=== PATIENT | female | born 1950 | race Caucasian/White ===

== ENCOUNTER → 2023-05-20 08:26 | Outpatient (REF) | payer MEDICARE, OTHER, SELFPAY | LOC: RCS 08:26 | PROVIDERS: ATTENDING PHYSICIAN Nurse Practitioner; FAMILY PHYSICIAN Family Medicine | DX: I42.9 Cardiomyopathy, unspecified (principal) | CPT/HCPCS: 93306 ==

== ENCOUNTER → 2023-06-06 06:57 | Outpatient (REF) | payer MEDICARE, OTHER, SELFPAY ==
[2023-06-06] MEDS: FLUSH (NSS) 1 FLUSH IV (08:40)
[2023-06-06] MEDS: LEXISCAN 0.400000000000000022 MG IV (08:41)
== END ==
LOC: RCS 06:57
PROVIDERS: ATTENDING PHYSICIAN Internal Medicine Cardiovascular Disease; FAMILY PHYSICIAN Family Medicine
DX: I48.0 Paroxysmal atrial fibrillation (principal); I42.9 Cardiomyopathy, unspecified
CPT/HCPCS: 78452; 93017; A9500; J2785

== ENCOUNTER → 2023-07-15 10:47 | Outpatient (REF) | payer MEDICARE, OTHER, SELFPAY ==
[2023-07-15 11:25] LABS: % Basophils 0.9 % (0-2); % Immature Granulocytes 0.3 % (0-0.5); % Monocytes 9.2 % (1.7-9.3); % Neutrophils 60.6 % (42.2-75.2); Absolute Basophils 0.1 10^3/uL (0-0.2); Absolute Monocytes 0.6 10^3/uL (0.1-0.6); Absolute Neutrophils 4.2 10^3/uL (1.4-6.5); Hematocrit 35.6 % (37.0-47.0); Hemoglobin 11.5 g/dL (12.0-16.0); Mean Corp Hgb Conc. 32.3 g/dL (33.0-37.0); Mean Corpuscular Hgb 29.3 pg (27.0-31.0); Mean Corpuscular Volume 90.6 fL (81.0-99.0); Mean Platelet Volume 9.3 fL (7.4-10.4); Nucleated Red Blood Cells % 0 %; Platelet Count 266 10^3/uL (130-400); Red Blood Cell Count 3.93 10^6/uL (4.20-5.40)
[2023-07-15 11:38] LABS: INR 1.19; PT 14.9 Sec (11.4-14.6)
[2023-07-15 12:03] LABS: ALT (SGPT) 32 U/L (0-35); AST (SGOT) 26 U/L (14-36); Albumin 4.3 g/dl (3.5-5.0); Alkaline Phosphatase 57 U/L (38-126); Blood Urea Nitrogen 34 mg/dl (7-17); Calcium 10.4 mg/dl (8.4-10.2); Carbon Dioxide 24 mmol/L (22-30); Chloride 107 mmol/L (98-107); Glucose 95 mg/dl (70-99); Magnesium 1.8 mg/dl (1.6-2.3); Potassium 4.2 mmol/L (3.5-5.1); Sodium 139 mmol/L (135-145); Total Bilirubin 0.7 mg/dl (0.2-1.3); Total Protein 6.6 g/dl (6.3-8.2); eGFR > 60.00
== END ==
LOC: SDSPAT 10:47
PROVIDERS: ATTENDING PHYSICIAN Internal Medicine Cardiovascular Disease; FAMILY PHYSICIAN Family Medicine; OTHER PHYSICIAN Internal Medicine Cardiovascular Disease
DX: Z01.818 Encounter for other preprocedural examination (principal); I42.8 Other cardiomyopathies; I48.0 Paroxysmal atrial fibrillation
CPT/HCPCS: 36415; 80053; 83735; 85025; 85610; 93005

== ENCOUNTER 2023-07-23 08:32 | Day surgery (SDC) | payer MEDICARE, OTHER, SELFPAY ==
[2023-07-15 11:00] VITALS: BMI 27.3
[2023-07-23 08:55] VITALS: BP 118/78
[2023-07-23 09:20] LABS: Glucose - Point of Care 108 mg/dl (70-99)
[2023-07-23] MEDS: SOLU-CORTEF 200 MG IV (10:30)
[2023-07-23] MEDS: BENADRYL 50 MG IV (10:38)
[2023-07-23 11:44] VITALS: BP 124/63
--- NOTE | 2023-07-23 11:57 | ITS.CL.PN ---
Open Claims Representative - Procedure Note
Procedure
Procedure Note:
Venogram report
Date: July 23, 2023
Indication: Prior to 2016 pacemaker implant and need for upgrade with cardiac resynchronization therapy
Procedure report:
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
collaterals in the innominate SVC system. Programming of the device was left at DDDR 60-120 bpm and as she received sedation she will be kept overnight and discharged tomorrow. We will perform CT surgical consultation and I discussed the case
preliminarily with Dr. Donato who will evaluate the patient tomorrow morning for surgical LV lead implantation. The patient is agreeable to be Dr. Donato. I also communicated plan of care with her outpatient toe lining closer Dr. Mercy Ball.
[2023-07-23 11:59] VITALS: BP 122/72
--- NOTE | 2023-07-23 12:12 | W.PN.UPDATE ---
Update Note
Progress Note Update
Please note venogram report in the chart with long segment subclavian occlusion. Will consult CT surgery for evaluation for surgical LV lead implantation I discussed with Dr. Donato.
[2023-07-23 12:14] VITALS: BP 134/60
[2023-07-23 12:29] VITALS: BP 138/111
== END 2023-07-23 13:15 | disposition home or self-care (01) ==
LOC: CATH 08:32
PROVIDERS: ATTENDING PHYSICIAN Internal Medicine Cardiovascular Disease; CONSULT PHYSICIAN Thoracic Surgery (Cardiothoracic Vascular Surgery); FAMILY PHYSICIAN Family Medicine; OTHER PHYSICIAN Internal Medicine Cardiovascular Disease
DX: Z45.010 Encounter for checking and testing of cardiac pacemaker pulse generator [battery] (principal); I34.0 Nonrheumatic mitral (valve) insufficiency; I82.B29 Chronic embolism and thrombosis of unspecified subclavian vein; I50.20 Unspecified systolic (congestive) heart failure; I44.2 Atrioventricular block, complete; Z95.3 Presence of xenogenic heart valve; I48.0 Paroxysmal atrial fibrillation; I47.19 Other supraventricular tachycardia; E11.9 Type 2 diabetes mellitus without complications; Z79.84 Long term (current) use of oral hypoglycemic drugs; I95.9 Hypotension, unspecified; Z87.19 Personal history of other diseases of the digestive system; G47.00 Insomnia, unspecified; E03.9 Hypothyroidism, unspecified; D64.9 Anemia, unspecified; Z79.01 Long term (current) use of anticoagulants; Z91.041 Radiographic dye allergy status; Z88.8 Allergy status to other drugs, medicaments and biological substances; Z88.5 Allergy status to narcotic agent; Z88.2 Allergy status to sulfonamides; Z79.899 Other long term (current) drug therapy; I42.8 Other cardiomyopathies
CPT/HCPCS: 33229; 36005; 33207; 33225; 75827; 82962; C1769; C1892; Q9967

== ENCOUNTER 2023-08-06 07:17 | Day surgery (SDC) | payer MEDICARE, OTHER, SELFPAY | END 2023-08-06 10:27 | disposition home or self-care (01) | LOC: CATH 07:17 | PROVIDERS: ATTENDING PHYSICIAN Nuclear Medicine Nuclear Cardiology; FAMILY PHYSICIAN Family Medicine | DX: I08.1 Rheumatic disorders of both mitral and tricuspid valves (principal); Z95.3 Presence of xenogenic heart valve; I70.0 Atherosclerosis of aorta; I42.8 Other cardiomyopathies; I50.22 Chronic systolic (congestive) heart failure | CPT/HCPCS: 93312; 93320; 93325 ==

== ENCOUNTER → 2024-01-22 07:51 | Outpatient (REF) | payer MEDICARE, OTHER, SELFPAY | LOC: RCS 07:51 | PROVIDERS: ATTENDING PHYSICIAN Thoracic Surgery (Cardiothoracic Vascular Surgery); FAMILY PHYSICIAN Family Medicine; REFERRING PHYSICIAN Internal Medicine Cardiovascular Disease | DX: Z95.3 Presence of xenogenic heart valve (principal); I44.2 Atrioventricular block, complete; Z95.0 Presence of cardiac pacemaker | CPT/HCPCS: 93306 ==

== ENCOUNTER 2024-12-30 18:15 | Inpatient (IN) | payer MEDICARE, OTHER, SELFPAY ==
[2024-12-30] VITALS (28 sets, daily range): BP systolic 81–157; BP diastolic 45–81; BMI 26.6
--- NOTE | 2024-12-30 15:41 | ED.GENMED ---
History of Present Illness
<Concetta Wahl, [employer] - Last Filed: 12/30/24 16:49>
General
Chief Complaint: Abnormal Lab Value
Source: patient
Exam Limitations: none
Time Seen by Provider: 12/30/24 14:47
Nursing documentation reviewed up to this point in time: agreed with
History of Present Illness
History of Present Illness:
74-year-old female with history of cardiomyopathy, endocarditis, HTN, HLD, paced, mitral valve replacement on Eliquis presents for low hemoglobin. She states she had routine blood work done yesterday in preparation for her yearly visit and was
called today for low hemoglobin. She states she has been getting winded lately when she walks fast, denies chest pain, abdominal pain, N/V/D/C. Denies numbness or tingling or weakness in her extremities. She denies UTI symptoms. Denies change in
the color of her stool.
She also states she has a 'leaky mitral valve' and has an appointment next week for an echocardiogram with Dr. Ball.
Past History
<Concetta Wahl, [employer] - Last Filed: 12/30/24 16:49>
Past History
ED Past Medical History: HTN, Hypercholesterolemia and Valvular disease (Mitral regurgitation)
ED Past Surgical History: Appendectomy
Social History
Tobacco: Non-smoker
Alcohol: None
Drug: None
Review of Systems
<Concetta Wahl, [employer] - Last Filed: 12/30/24 16:49>
Review of Systems
Allergies reviewed?: Yes
All Other Systems: ROS reviewed and negative except as documented in HPI and ROS
Phy Exam
<Concetta Wahl, [employer] - Last Filed: 12/30/24 16:49>
Physical Exam
Physical Exam:
GENERAL: No acute distress. A&Ox3.
CONSTITUTIONAL: Afebrile.
EYES: clear, conjunctivae normal
ENMT: moist mucus membranes, Pharynx nl
RESPIRATORY: Regular respirations, nonlabored, lungs clear.
CARDIOVASCULAR: Regular rate and rhythm, no murmurs, no rubs.
GI: Soft, nontender, normal BS
Rectal: brown stool heme positive
MUSCULOSKELETAL: Moves with ease. Well perfused.
SKIN: Warm, dry, pink
PSYCH: Normal mood and affect. Well kept, interactive and appropriate
NEUROLOGIC: Awake, alert and oriented. No focal neurological deficits
Course
<Concetta Wahl, [employer] - Last Filed: 12/30/24 16:49>
Orders/Labs/Results
Orders:
Orders
12/30/24 15:14
IV Insert/Care/Rem.- Treatment PRN
Pantoprazole 80 mg/100 ml Nss [Protonix] 80 mg in 100 ml IV NOW
Pantoprazole [Protonix IV] 80 mg IV NOW STA
12/30/24 15:15
* Blood Bank Products Urgent
Blood Bank Products: *Packed RBC Leuko(PRBC's)
Quantity: 2
Transfuse Today: Yes
Reason: Bleeding
12/30/24 16:13
Type+Screen Urgent
Complete Blood Count/With Diff Urgent
Comprehensive Metabolic Panel Urgent
Urinalysis Reflex To Culture Urgent
Date Specimen was Collected: 12/30/24
Time Specimen was Collected: 15:44
Urine Microscopic Reflex Cult Urgent
Urine Culture Urgent
JORGE Source: U
Specimen Description:
Date Specimen was Collected: 12/30/24
Time Specimen was Collected: 15:44
12/30/24 16:42
Cephalexin Monohydrate [Keflex] 500 mg PO NOW STA
Abnormal Lab Results
12/30/24
16:13
RBC 3.37 L 10^6/uL
(4.20-5.40)
Hgb 5.7 L* g/dL
(12.0-16.0)
Hct 20.8 L* %
(37.0-47.0)
MCV 61.7 L fL
(81.0-99.0)
MCH 16.9 L pg
(27.0-31.0)
MCHC 27.4 L g/dL
(33.0-37.0)
RDW 18.6 H %
(11.5-14.5)
Plt Count 411 H 10^3/uL
(130-400)
Neutrophils % 75.6 H %
(42.2-75.2)
Lymphocytes % 15.9 L %
(20.5-51.1)
Potassium 5.2 H mmol/L
(3.5-5.1)
BUN 42 H mg/dl
(7-17)
Total Protein 6.2 L g/dl
(6.3-8.2)
Ur Occult Blood Reflex 4+ A
(Negative)
Urine RBC 50-60 A /HPF
(0-2)
Urine WBC (Reflex) 30-40 A /HPF
(0-5)
Urine Bacteria (Reflex) Many A
(Negative)
Urine Albumin (Reflex) 4+ A
(Neg - Trace)
12/30/24 16:13
12/30/24 16:13
Vital Signs
Initial and Last Documented VS:
Initial Vital Signs
Temp Pulse Resp BP Pulse Ox
97.7 F 85 18 157/62 98
12/30/24 14:30 12/30/24 14:30 12/30/24 14:30 12/30/24 14:30 12/30/24 14:30
Last Documented Vital Signs
Temp Pulse Resp BP Pulse Ox
97.7 F 85 18 157/62 98
12/30/24 14:30 12/30/24 14:30 12/30/24 14:30 12/30/24 14:30 12/30/24 15:43
Rotary Drum Dyer consulted with Physician
Rotary Drum Dyer consulted with physician?: Yes
Name of Physician Consulted: Reyes
<Perez Chambers, DO - Last Filed: 12/30/24 16:54>
Orders/Labs/Results
Orders:
Orders
12/30/24 15:14
IV Insert/Care/Rem.- Treatment PRN
Pantoprazole 80 mg/100 ml Nss [Protonix] 80 mg in 100 ml IV NOW
Pantoprazole [Protonix IV] 80 mg IV NOW STA
12/30/24 15:15
* Blood Bank Products Urgent
Blood Bank Products: *Packed RBC Leuko(PRBC's)
Quantity: 2
Transfuse Today: Yes
Reason: Bleeding
12/30/24 16:13
Type+Screen Urgent
Complete Blood Count/With Diff Urgent
Comprehensive Metabolic Panel Urgent
Urinalysis Reflex To Culture Urgent
Date Specimen was Collected: 12/30/24
Time Specimen was Collected: 15:44
Urine Microscopic Reflex Cult Urgent
Urine Culture Urgent
JORGE Source: U
Specimen Description:
Date Specimen was Collected: 12/30/24
Time Specimen was Collected: 15:44
12/30/24 16:42
Cephalexin Monohydrate [Keflex] 500 mg PO NOW STA
Abnormal Lab Results
12/30/24
16:13
RBC 3.37 L 10^6/uL
(4.20-5.40)
Hgb 5.7 L* g/dL
(12.0-16.0)
Hct 20.8 L* %
(37.0-47.0)
MCV 61.7 L fL
(81.0-99.0)
MCH 16.9 L pg
(27.0-31.0)
MCHC 27.4 L g/dL
(33.0-37.0)
RDW 18.6 H %
(11.5-14.5)
Plt Count 411 H 10^3/uL
(130-400)
Neutrophils % 75.6 H %
(42.2-75.2)
Lymphocytes % 15.9 L %
(20.5-51.1)
Potassium 5.2 H mmol/L
(3.5-5.1)
BUN 42 H mg/dl
(7-17)
Total Protein 6.2 L g/dl
(6.3-8.2)
Ur Occult Blood Reflex 4+ A
(Negative)
Urine RBC 50-60 A /HPF
(0-2)
Urine WBC (Reflex) 30-40 A /HPF
(0-5)
Urine Bacteria (Reflex) Many A
(Negative)
Urine Albumin (Reflex) 4+ A
(Neg - Trace)
12/30/24 16:13
12/30/24 16:13
Vital Signs
Initial and Last Documented VS:
Initial Vital Signs
Temp Pulse Resp BP Pulse Ox
97.7 F 85 18 157/62 98
12/30/24 14:30 12/30/24 14:30 12/30/24 14:30 12/30/24 14:30 12/30/24 14:30
Last Documented Vital Signs
Temp Pulse Resp BP Pulse Ox
97.7 F 85 18 157/62 98
12/30/24 14:30 12/30/24 14:30 12/30/24 14:30 12/30/24 14:30 12/30/24 15:43
<Concetta V. Day, [employer] - Last Filed: 12/30/24 16:49>
MDM/Problems Addressed
Differential Diagnosis Includes:
GI bleed, PUD
MDM/Problems Addressed:
74-year-old female with history of cardiomyopathy, endocarditis, HTN, HLD, paced, mitral valve replacement on Eliquis presents for low hemoglobin. She states she had routine blood work done yesterday in preparation for her yearly visit and was
called today for low hemoglobin. She states she has been getting winded lately when she walks fast, denies chest pain, abdominal pain, N/V/D/C. She has had some burning with urination. Denies numbness or tingling or weakness in her extremities.
Denies change in the color of her stool.
She also states she has a 'leaky mitral valve' and has an appointment next week for an echocardiogram with Dr. Ball.
Afebrile, NAD
Abdomen benign, rectal: Brown stool heme positive
4:40 PM:
UA: 4+ blood, 50-60 RBCs, 30-40 WBCs, many bacteria, 4+ albumin.
Started on Keflex
CBC: Hgb 5.7 will transfuse with 2 units of PRBCs.
CMP BUN 42 otherwise
Plan: Admit, GI bleed, anemia, UTI
Blood Consent signed and scanned into chart: PRBC's [address] Chambers evaluated patient and agrees with plan
Hospitalist and GI notified of admission
Chronic conditions affecting care: HTN and Arrhythmia (On Eliquis)
<Concetta Wahl [employer] - Last Filed: 12/30/24 16:49>
*Pulse Oximetry
SaO2: 98
Oxygen Mode of Delivery: Room air
Patient hypoxic: no
*Critical Care Note
Total Time (30-74mins, 75-104mins- exclusive of procedures): Not Applicable
ED Attending Note
<Concetta Wahl [employer] - Last Filed: 12/30/24 16:49>
-
Portions of this chart may have been created with voice recognition software.� Occasional wrong word or��sound alike� substitutions may have occurred due to the inherent limitations of voice recognition software.
<Perez Chambers, DO - Last Filed: 12/30/24 16:54>
ED Attending Note
Patient seen and examined by attending physician: Yes
ED Attending Note:
I reviewed and agree with history and treatment plan by LILLY Quach. My exam revealed 74-year-old female with mild hypotension, appears pale. Midline sternotomy scar. Abdomen soft nontender. 1 unit packed red blood cells ordered. Rocephin
given initially for UTI. Admit to hospitalist IMU level.
Discharge Plan
Departure
Patient Disposition: Admit
Date of Disposition: 12/30/24
Time of Disposition: 16:53
Admit to: IMU
Presentation/result/management discussed w/ accepting MD/DO: Hospitalist
Patient with high blood pressure during this ER visit?: Yes
Condition: Fair
Discharge Problem:
GI (gastrointestinal bleed), Anemia, Acute UTI
Prescriptions:
No Action
zolpidem 10 MG tablet
10 mg PO HSPRN PRN (Reason: sleep)
carvedilol 3.125 MG tablet
3.125 mg PO BID Qty: 60 3RF
multivitamin with folic acid [Tab-A-Rod] 1 TABLET tablet
1 tab PO DAILY Qty: 0 0RF
furosemide 20 MG tablet
20 mg PO SUWE
lisinopril 2.5 MG tablet
2.5 mg PO DAILY
atorvastatin 40 mg Tablet
40 mg PO DAILY
alprazolam 0.5 mg Tablet
0.5 mg PO QID
Eliquis 5 mg Tablet
5 mg PO BID
Cbd Gummies
1 tab PO HS
thiamine HCl (vitamin B1) [Vitamin B-1] 100 mg Tablet
100 mg PO DAILY
Saccharomyces boulardii [Probiotic (S.boulardii)] 250 mg Capsule
250 mg PO DAILY
levothyroxine 25 mcg Tablet
25 mcg PO DAILY
vitamin B complex Capsule
1 cap PO DAILY
ezetimibe 10 mg Tablet
10 mg PO DAILY
ivabradine 5 mg Tablet
5 mg PO BID
metformin 500 mg Tablet Extended Release 24 Hr
1,000 mg PO BID
Referrals:
Mina Quintana MD [Family Provider, Family Practice]
Interventions
Interventions:
*Risk Screen - Suicide Last Done: 12/30/24 14:30
*General Assessment Last Done: 12/30/24 14:30
Discharge Date and Time
Print Language: FILIPINO
[2024-12-30 16:26] LABS: Urine Character Cloudy (Clear)
[2024-12-30] MEDS: PROTONIX 100 IV (16:30)
[2024-12-30] MEDS: PROTONIX IV 80 MG IV (16:30)
[2024-12-30 16:34] LABS: Urine Squamous Cell 0-2 /LPF (Few)
[2024-12-30 16:36] LABS: Urine Red Blood Cell 50-60 /HPF (0-2); Urine White Cell 30-40 /HPF (0-5)
[2024-12-30 16:40] LABS: ALT (SGPT) 18 U/L (0-35); AST (SGOT) 20 U/L (14-36); Albumin 4.1 g/dl (3.5-5.0); Alkaline Phosphatase 58 U/L (38-126); Blood Urea Nitrogen 42 mg/dl (7-17); Calcium 9.6 mg/dl (8.4-10.2); Carbon Dioxide 24 mmol/L (22-30); Chloride 104 mmol/L (98-107); Glucose 90 mg/dl (70-99); Hematocrit 20.8 % (37.0-47.0); Hemoglobin 5.7 g/dL (12.0-16.0); Mean Corp Hgb Conc. 27.4 g/dL (33.0-37.0); Mean Corpuscular Volume 61.7 fL (81.0-99.0); Nucleated Red Blood Cells % 0 %; Platelet Count 411 10^3/uL (130-400); Potassium 5.2 mmol/L (3.5-5.1); Red Cell Dist. Width 18.6 % (11.5-14.5); Sodium 135 mmol/L (135-145); Total Protein 6.2 g/dl (6.3-8.2); eGFR 58.39
--- NOTE | 2024-12-30 16:45 | EDRN ---
Received patient on stretcher. Patient stated that she has been feeling generally fatigued and develops GONSALVES. Patient stated that she saw her doctor and had blood work done. Received a call today that her HGB was low and needed to come to the ED.
Patient denies chest pain,dizziness and dark colored stools.
--- NOTE | 2024-12-30 16:54 | HPS.HSE ---
Family Physician
-
Family Physician: Mina Quintana
Chief Complaint
-
Abnormal lab work low hemoglobin
History of Present Illness
74-year-old female who states she had routine blood work yesterday in preparation for her yearly visit she was called today due to low hemoglobin. She does report feeling winded with exertion and activity over the past 2 to 3 months she also
reports a' leaky mitral valve', for which she has an appointment next week with cardiology for echocardiogram by Dr. Ball. She denies lightheadedness, headache, fever, chills, chest pain, palpitations, abdominal pain, nausea, vomiting,
diarrhea, urinary symptoms, black stool. She states on and off after walks she wipes and has some bright red which she believes hemorrhoidal bleeding. She reported last week she had 1 day of hematuria that went away. She denies dysuria frequency,
flank pain
She has a past medical history of nonischemic cardiomyopathy, heart failure reduced EF 35 to 40% May 20, 2023 endocarditis, echo August 2022 EF 40-45% moderate bioprosthetic mitral regurg, HTN/hypotension, HLD, mitral valve replacement on
Eliquis, pacemaker secondary to complete heart block Medtronic dual-chamber 2015, paroxysmal A-fib, atrial tachycardia send post PVI December 2022, small bowel obstruction, insomnia, hypothyroidism
Medical History
Past Medical History
Past Medical History: Reports Other
Additional Past Medical History:
nonischemic cardiomyopathy, heart failure reduced EF 35 to 40% May 20, 2023
endocarditis
echo August 2022 EF 40-45% moderate bioprosthetic mitral regurg
mitral valve replacement on Eliquis
Iron deficiency anemia
B12 deficiency anemia
HTN/hypotension
HLD
Pacemaker secondary to complete heart block Medtronic dual-chamber 2015
Paroxysmal A-fib
Atrial tachycardia send post PVI December 2022
small bowel obstruction
Insomnia
Hypothyroidism
Past Surgical History: Reports Other
Additional Past Surgical History:
Pacemaker secondary to complete heart block Medtronic dual-chamber 2015
Atrial tachycardia send post PVI December 2022
Mitral valve replacement 11/07/2015
Appendectomy
Social History
Tobacco: Former Smoker (In college)
Alcohol: Occasional (Last drink 6 months ago)
Personal: Single
Employment: Retired
Family History
Family History: Early CAD (Both parents in their 40s heart disease)
Allergies / Home Medications
Allergies reflects when Allergies were last updated in [employer].
Home Medications with original date entered in [employer]
Allergy/Medication List:
Allergies
Allergy/AdvReac Type Severity Reaction Status Date / Time
codeine Allergy Hives Verified 12/30/24 14:31
iodine Allergy CONGESTION Verified 12/30/24 14:31
shellfish derived Allergy CONGESTION Verified 12/30/24 14:31
Sulfa (Sulfonamide Allergy Unknown Verified 12/30/24 14:31
Antibiotics)
Home Medications
zolpidem 10 mg tablet 10 mg PO HSPRN PRN sleep 10/21/15
carvedilol 3.125 mg tablet 3.125 mg PO BID ##60 11/13/15
multivitamin with folic acid 400 mcg tablet (Tab-A-Rod) 1 tab PO DAILY ##0 11/13/15
furosemide 20 mg tablet 20 mg PO SUWE Fluid retention/Swelling 12/01/15
lisinopril 2.5 mg tablet 2.5 mg PO DAILY Blood pressure 06/05/20
Cbd Gummies 1 tab PO HS Sleep 12/26/22
alprazolam 0.5 mg tablet 0.5 mg PO QID 12/26/22
apixaban 5 mg tablet (Eliquis) 5 mg PO BID 12/26/22
atorvastatin 40 mg tablet 40 mg PO DAILY 12/26/22
Saccharomyces boulardii 250 mg capsule (Probiotic (S.boulardii)) 250 mg PO DAILY 01/15/23
thiamine HCl (vitamin B1) 100 mg tablet (Vitamin B-1) 100 mg PO DAILY 01/15/23
ezetimibe 10 mg tablet 10 mg PO DAILY 07/05/23
ivabradine 5 mg tablet 5 mg PO BID 07/05/23
levothyroxine 25 mcg tablet 25 mcg PO DAILY 07/05/23
vitamin B complex 1 cap PO DAILY 07/05/23
metformin 500 mg tablet,extended release 24 hr 1,000 mg PO BID 12/30/24
Review of Systems
-
History Source: Patient and Family (Friend at bedside)
A 12 point ROS was completed and negative except as noted: Yes
Constitutional: Reports Fatigue (With activity); Denies Fever or Chills
EENT: Denies Sore Throat or Runny Nose
Respiratory: Reports Other (Dyspnea on exertion); Denies Cough or Trouble Breathing
Cardiac: Denies Chest Pain, Diaphoresis, Palpitations or Syncope
Abdomen/GI: Reports Bloody Stools (After walking wipes external hemorrhoids slight bright red); Denies Abdominal Pain, Nausea, Vomiting, Diarrhea, Constipated or Black Stools
: Reports Other (Hematuria 1 day last week); Denies Dysuria, Frequency, Flank Pain or Incontinence
Musculoskeletal: Denies Joint Pain or Edema
Skin: Denies Itching or Rash
Neurological: Denies Dizzy, Headache or Weakness
Endocrine: Reports No Symptoms
Hematologic/Lymphatic: Reports No Symptoms
Psych: Reports Calm
Physical Exam
Vital Signs
Vital Signs
Temp Pulse Resp BP Pulse Ox
97.7 F 85 18 157/62 98
12/30/24 14:30 12/30/24 14:30 12/30/24 14:30 12/30/24 14:30 12/30/24 15:43
Physical Exam
General: Comfortable and Conversant; No Pain, Fever or Chills
HEENT: NormoCephalic, Anicteric, Moist mucous membranes, PERRLA, No Ptosis and Other (Pale conjunctiva)
Respiratory: Clear; No Wheezes, Rales or Rhonchi
Cardiac: S1/S2; No Murmur, Rub, Gallop or Peripheral Edema
Breast: Deferred by me
GI: Soft, Non Tender, Non Distended, Normal Bowel Sounds and No Hepatosplenomegaly
Rectal: Hem Positive (Brown in ER per ER provider)
Genito-urinary: Deferred by me
Musculoskeletal: No Clubbing, No Cyanosis and No Edema
Skin: Warm and Dry; No Rash
Neuro: AO x 3, No Motor Deficits, Nonfocal/grossly intact, Cranial Nerves Intact and No Sensory Deficits; No Slurred Speech, Facial Droop, Tremors or Sedated
Psych: Calm
Laboratory Results
-
12/30/24 16:13
12/30/24 16:13
Laboratory Results
Total Bilirubin 0.8 mg/dl (0.2-1.3) 12/30/24 16:13
AST 20 U/L (14-36) 12/30/24 16:13
ALT 18 U/L (0-35) 12/30/24 16:13
Alkaline Phosphatase 58 U/L (38-126) 12/30/24 16:13
Data Reviewed
-
Lab Data: Labs Reviewed by me
Impression/Plan
-
Impression/plan:
Admit to IMU
#Acute GI bleed versus severe iron deficiency anemia on Eliquis
#History of anemia iron deficiency, B12
Heme positive stool history of hemorrhoids
Hgb 5.7, MCV 61.7
- Check iron panel, B12, folate
- Type and screen
- Transfuse 2 units PRBC
- Consult GI
- N.p.o.
- Hold Eliquis, metformin
#Acute hypotension due to blood loss anemia
#HTN/hypotension
BP 83/55 > 98/48 MAP of 62 patient reports tends to run 100 systolic
Type and screen
- Transfuse 2 units PRBC
Follow H&H every 8 hours
- Hold carvedilol 3.125 mg p.o. twice daily, furosemide 20 mg Saturday, lisinopril 2.5 mg daily
#Acute pyuria
Patient asymptomatic
Given IV Rocephin in ER
-Will follow urine culture
#Anxiety
-Continue alprazolam 0.5 mg p.o. 4 times daily
#Hypothyroidism
Continue levothyroxine 25 mcg p.o. daily
#HLD
Hold Zetia 10 mg daily
#Bioprosthetic mitral valve replacement
#Medtronic dual-chamber pacemaker 2015 secondary to heart block
#Paroxysmal A-fib
#Paroxysmal atrial tachycardia status post PVI December 2022
#Nonischemic cardiomyopathy, heart failure reduced EF 35 to 40% May 20, 2023
#endocarditis hx
2D echo echo August 2022 EF 40-45% moderate bioprosthetic mitral regurg
- Continue Ivabradine 5 mg p.o. twice daily
Other PMH:
Small bowel obstruction
Insomnia hold Ambien 10 mg at bedtime due to hypotension
DVT prophylaxis
SCDs
Full code
[2024-12-30 17:04] LABS: Normal RBC Morphology No
[2024-12-30 17:05] LABS: Anisocytosis 1+; Macrocytosis 1+
[2024-12-30 17:06] LABS: Hypochromasia 2+; Ovalocytes 2+
[2024-12-30] MEDS: ROCEPHIN 1000 MG IV (17:26)
--- NOTE | 2024-12-30 17:32 | W.PN.UPDATE ---
Update Note
Progress Note Update
This note serves as an addendum to the H&P by remnants cutter Laura Rico
HPI
74F Non smoker sen at ER:
- abn low Hgb in routine blood work yesterday in preparation for her yearly visit
- feeling winded with exertion.'
- HX leaky bioprosthetic leaky MVR for which she has an appointment next week with [facility] for TTE with Dr. Ball.
ROS
denies lightheadedness, headache, fever, chills, chest pain, palpitations, abdominal pain, nausea, vomiting, diarrhea, urinary symptoms, black or bloody stools.
PMHX:
NICM, HX chr HFrEF, LVEF 40-45
moderate bioprosthetic mitral regurg
PPM Medtronic dual-chamber 2016,
Atrial tachycardia send post PVI
Prx AF
HTN, Hypercholesterolemia
HX SBO , Appendectomy
Relevant VS
Temp Pulse Resp BP Pulse Ox
97.7 F 77 16 83/55 98
12/30/24 14:30 12/30/24 16:48 12/30/24 16:48 12/30/24 16:48 12/30/24 15:43
PE
Gen: NAD
HEENT: pale conjunctiva
Neck: supple
Lungs: CTA
Cor:RRR
Abdomen:�soft benign
JOB SPOTTER: AAO3
Relevant Data�
07/15/23 12/30/24
11:12 16:13
Hgb 11.5 L 5.7 L*
MCV 90.6 61.7 L
Plt Count 266 411 H
Potassium 5.2 H
BUN 42 H
Creatinine 1.0
eGFR > 60.00 58.39
ASSESSMENT & PLAN
Acute HoB POS stool GIB on Eliquis - Hemorrhoids bleed ?
ACBL severe anemic Hgb
HX chr anemia
- Check iron panel, B12, folate
- T & S
- Transfuse 2 units PRBC
- FU H & H
- NPO
- IV PPI BID
- Hold Eliquis, metformin
- GI consult
Abn UA - asymptomatic Pyuria
- one dose of IV CFTZ at ER
- await UCx till further ABx
Hypotension due to blood loss anemia
Benign HTN/hypotension -BP 83/55
- Transfuse 2 units PRBC
- Hold carvedilol , furosemide and lisinopril
HX NICM
HX chr HFrEF o 40% May 20, 2023
HX endocarditis hx
- c/w Ivabradine 5 mg p.o. twice daily
Prx AF
S/P PVI December 2022
Xanax dependent anxiety
- on alprazolam 0.5 mg p.o. 4 times daily
Hypothyroidism
- on PTAS levothyroxine 25 mcg p.o. daily
HLD
- on Zetia
Bioprosthetic mitral valve replacement
Medtronic dual-chamber pacemaker 2015 secondary to heart block
Other PMH:
Small bowel obstruction
Insomnia hold Ambien 10 mg at bedtime due to hypotension
DVT Px: SCD
Full code
IMU
--- NOTE | 2024-12-30 18:23 | EDRN ---
Patient receiving 1st unit of PRBC. Explained to patient signs and symptoms of a transfusion reaction. Verbalized understanding.
[2024-12-30 18:32] LABS: Total Iron Binding Capacity 471 ug/dl (265-497)
--- NOTE | 2024-12-30 18:39 | EDRN ---
Patient tolerating PRBC. Asymptomatic of a transfusion reaction.
[2024-12-30 18:41] LABS: Iron < 20 ug/dl (37-170)
[2024-12-30 18:59] LABS: Ferritin 3.7 ng/ml (11.1-264.0)
--- NOTE | 2024-12-30 19:12 | EDRN ---
Report given to SONU Johnson in IMU.
[2024-12-30 19:30] LABS: Folate 16.2 ng/ml (2.76-20); Vitamin B12 299 pg/ml (239-931)
[2024-12-30] MEDS: XANAX 0.5 MG PO (21:51)
[2024-12-30] MEDS: XANAX PO (21:55)
--- NOTE | 2024-12-30 23:13 | PTCARENOTE ---
received patient from ed via stretcher. Patient AAOx3. Protonix gtt and first unit of PRBC infusing upon admission. CHG bath done. purewick in place. assessment and vital signs as charted. call ovalle in reach.
[2024-12-31] VITALS (15 sets, daily range): BP systolic 111–149; BP diastolic 53–130; BMI 26.6
[2024-12-31] MEDS: PROTONIX 100 IV ×3 (00:15→20:35)
[2024-12-31] MEDS: MELATONIN 5 MG PO (02:05)
[2024-12-31 04:39] LABS: ALT (SGPT) 18 U/L (0-35); AST (SGOT) 24 U/L (14-36); Albumin 3.6 g/dl (3.5-5.0); Alkaline Phosphatase 43 U/L (38-126); Blood Urea Nitrogen 35 mg/dl (7-17); Calcium 9.4 mg/dl (8.4-10.2); Carbon Dioxide 22 mmol/L (22-30); Chloride 109 mmol/L (98-107); Estimated Creatinine Clearance 44 ml/min; Glucose 83 mg/dl (70-99); Potassium 4.4 mmol/L (3.5-5.1); Sodium 137 mmol/L (135-145); Total Protein 5.9 g/dl (6.3-8.2); eGFR > 60.00
[2024-12-31 04:42] LABS: Hematocrit 27.0 % (37.0-47.0); Hemoglobin 8.2 g/dL (12.0-16.0); Mean Corp Hgb Conc. 30.4 g/dL (33.0-37.0); Mean Corpuscular Volume 68.0 fL (81.0-99.0); Nucleated Red Blood Cells % 0 %; Platelet Count 328 10^3/uL (130-400); Red Cell Dist. Width 25.2 % (11.5-14.5)
[2024-12-31] MEDS: SYNTHROID 25 MCG PO (05:28)
--- NOTE | 2024-12-31 07:27 | W.PN.HOSP.TC ---
Today's Communication/Plan
-
diet as per GI, NPO after midnight for EGD/Colonoscopy
monitor H&H
Cardio Clearance
home antihypertensives resumed with holding parameters
5mg Ambien HS, 5mg Ambiend HSPRN available if schedule is insufficient
Assessment / Plan
Assessment / Plan
Physical Exam
General: No acute distress, appears comfortable at this time
HEENT: NormoCephalic, Anicteric, Moist mucous membranes, PERRLA
Respiratory: Clear; No Wheezes, Rales or Rhonchi
Cardiac: S1/S2; No Murmur, Rub, Gallop or Peripheral Edema
GI: Soft, Non Tender, Non Distended, Normal Bowel Sounds present
Musculoskeletal: No Clubbing, No Cyanosis and No Edema
Skin: Warm and Dry; No Rash
Neuro: AO x 3 conversant coherent
Psych: Calm
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
#Acute GI bleed versus severe iron deficiency anemia on Eliquis
#History of anemia iron deficiency
#Low B12 level
Heme positive stool history of hemorrhoids
- Transfuse 2 units PRBC with appropriate response noted
- Consult GI appreciated clear liquid diet today NPO after midnight for EGD/colonoscopy
- Hold Eliquis, metformin
-Cardio eval appreciated cleared to proceed with EGD/Colonoscopy, no need for hep gtt or abx prophylaxis hx endocarditis
#Acute hypotension due to blood loss anemia
#HTN/hypotension
-BP since improved follow transfusions as above
- resume carvedilol 3.125 mg p.o. twice daily and lisinopril 2.5 mg daily w holding parameters
- Home Lasix remains on hold at this time given NPO as above
#Acute pyuria
Patient asymptomatic
Given IV Rocephin in ER
-follow urine culture, monitoring off abx at this time
#Anxiety
#Insmonia
-Continue alprazolam 0.5 mg p.o. 4 times daily
-home Ambien resumed at reduced dose 5 mg HS, 5mg HSPRN also available if scheduled dose insufficient
#Hypothyroidism
Continue levothyroxine 25 mcg p.o. daily
#HLD
Hold Zetia 10 mg daily
#Bioprosthetic mitral valve replacement
#Medtronic dual-chamber pacemaker 2016 secondary to heart block
#Paroxysmal A-fib
#Paroxysmal atrial tachycardia status post PVI December 2022
#Nonischemic cardiomyopathy, heart failure reduced EF 35 to 40% May 20, 2023
#endocarditis hx
2D echo echo August 2022 EF 40-45% moderate bioprosthetic mitral regurg
- Continue Ivabradine 5 mg p.o. twice daily (patient's own med)
Other PMH:
Small bowel obstruction
DVT prophylaxis
SCDs
Full code
Discussed with patient and patient's close friened Flor
I spent a total of 55 minutes with the patient or on the floor. More than 50% of this time involved counseling and coordination of care.
Anticipated Discharge: 24 - 48 hours
Subjective/Interval History
-
Date of Service: December 31, 2024
Seen and examined at bedside in no acute distress resting comfortably in bed. Overall reports feeling well. Denies pain. Endorses poor sleep overnight.
Objective Data
-
Labs:
Laboratory Results
12/31/24 12/31/24 12/31/24
04:11 10:00 16:00
WBC 8.2
Hgb 8.2 L D Pending Pending
Hct 27.0 L Pending Pending
Plt Count 328 D
Sodium 137
Potassium 4.4
Chloride 109 H
Carbon Dioxide 22
BUN 35 H
Creatinine 0.9
Glucose 83
Calcium 9.4
Total Bilirubin 1.7 H
AST 24
ALT 18
Alkaline Phosphatase 43
Vital Signs:
Vital Signs
Temp Pulse Resp BP Pulse Ox
98.6 F 72 20 128/62 98
12/31/24 02:39 12/31/24 05:30 12/31/24 05:30 12/31/24 04:00 12/31/24 05:30
I&O
12/30/24 12/31/24 01/01/25
06:59 06:59 06:59
Intake Total 500 / 500
Output Total 750 / 750
Balance -250 / -250
[2024-12-31] MEDS: XANAX 0.5 MG PO ×4 (09:01→21:35)
[2024-12-31] MEDS: VITAMIN B1 100 MG PO (09:01)
[2024-12-31] MEDS: THERAGRAN 1 TABLET PO (09:01)
[2024-12-31] MEDS: B COMPLEX w/VITAMIN C 1 CAPLET PO (09:01)
[2024-12-31] MEDS: VITAMIN B-12 1000 MCG PO (09:01)
[2024-12-31 09:48] LABS: Glucose - Point of Care 98 mg/dl (70-99)
--- NOTE | 2024-12-31 10:09 | CON.GI ---
Consultation
-
Date/Time Consultation Requested: 12/30/2024
Date/Time Consultation Performed: 12/31/2024
Requesting Provider: Concetta Wahl V
Performing Provider: Dr. Nguyen
Reason for Consultation: GI bleed on eliquis
Medical History
Chief Complaint / HPI
Chief Complaint: Anemia gastrointestinal bleed
History of Present Illness:
Ms Strange is a 74-year-old female with a past medical history of nonischemic cardiomyopathy, heart failure reduced EF 35 to 40% 05/2023, moderate bioprosthetic mitral regurg, HTN/hypotension, HLD, mitral valve replacement on Eliqu, pacemaker
secondary to complete heart block Medtronic dual-chamber 2015, paroxysmal A-fib, atrial tachycardia send post PVI December 2022, small bowel obstruction, insomnia, hypothyroidism who states she had routine blood work yesterday in preparation for her
yearly visit she was called today due to low hemoglobin. She does report feeling winded with exertion and activity over the past 2 to 3 months. Co-workers have noticed her increased fatigue and she reports feelings of dizziness within this 2-3
month timeframe. She does not report any medication changes she also reports a' leaky mitral valve', for which she has an appointment next week with cardiology for echocardiogram by Dr. Ball. She denies headache, fever, chills, chest pain,
palpitations, abdominal pain, nausea, vomiting, diarrhea, urinary symptoms, black stool. She states for the past several years on and off after walks she wipes and has some bright red which she believes hemorrhoidal bleeding although she has never
been formally evaluated for it. She reported last week she had 1 day of hematuria that went away. She denies dysuria frequency, flank pain. She does not use NSAIDs or aspirin and endorses light drinking with last drink 6 months ago and remote
smoking history. She reports never having an endoscopy or colonoscopy in the past.
Past Medical History
Past Medical History: Arrhythmias (paroxysomal a fib, atrial tahcycardia), HTN, Hypercholesterolemia, Hypothyroidism, Valvular Disease (mitral valve replacement, ) and Other (SBO)
Past Surgical History: Cardiac (mitral valve replacement, pace maker medtronic dual-chamber 2016, PVI 2012)
Social History
Tobacco: Former Smoker
Alcohol: Occasional
Drug: Marijuana
Employment: Employed
Family History
Family History: Reviewed & Not Pertinent (cardiac hx in family, no CA she is aware of)
Allergies / Home Medications
Allergy/AdvReac Type Severity Reaction Status Date / Time
codeine Allergy Hives Verified 12/30/24 14:31
iodine Allergy CONGESTION Verified 12/30/24 14:31
shellfish derived Allergy CONGESTION Verified 12/30/24 14:31
Sulfa (Sulfonamide Allergy Unknown Verified 12/30/24 14:31
Antibiotics)
�Medication �Instructions �Recorded
zolpidem 10 mg tablet 10 mg PO HSPRN PRN sleep 10/21/15
carvedilol 3.125 mg tablet 3.125 mg PO BID ##60 11/13/15
multivitamin with folic acid 400 1 tab PO DAILY ##0 11/13/15
mcg tablet (Tab-A-Rod)
furosemide 20 mg tablet 20 mg PO SUWE Fluid 12/01/15
retention/Swelling
lisinopril 2.5 mg tablet 2.5 mg PO DAILY Blood pressure 06/05/20
Cbd Gummies 1 tab PO HS Sleep 12/26/22
alprazolam 0.5 mg tablet 0.5 mg PO QID Mental Health/Anxiety 12/26/22
apixaban 5 mg tablet (Eliquis) 5 mg PO BID Blood Clot 12/26/22
Prevention/Tx
atorvastatin 40 mg tablet 40 mg PO DAILY High Cholesterol 12/26/22
Saccharomyces boulardii 250 mg 250 mg PO DAILY Supplement 01/15/23
capsule (Probiotic (S.boulardii))
thiamine HCl (vitamin B1) 100 mg 100 mg PO DAILY Supplement 01/15/23
tablet (Vitamin B-1)
ezetimibe 10 mg tablet 10 mg PO DAILY High Cholesterol 07/05/23
ivabradine 5 mg tablet 5 mg PO BID Heart Failure 07/05/23
levothyroxine 25 mcg tablet 25 mcg PO DAILY Thyroid 07/05/23
vitamin B complex 1 cap PO DAILY Supplement 07/05/23
metformin 500 mg tablet,extended 1,000 mg PO BID Diabetes 12/30/24
release 24 hr
Review of Systems
-
History Source: Patient
Constitutional: Reports Fatigue; Denies Fever
EENT: Reports No Symptoms; Denies Sore Throat or Runny Nose
Respiratory: Reports No Symptoms; Denies Cough or Trouble Breathing
Cardiac: Reports No Symptoms; Denies Chest Pain or Palpitations
Abdomen/GI: Reports Bloody Stools; Denies Abdominal Pain, Nausea, Vomiting or Diarrhea
: Denies Dysuria
Neurological: Reports Dizzy; Denies Weakness
Vital Signs
Temp Pulse Resp BP Pulse Ox
97.5 F 72 20 128/62 98
12/31/24 07:00 12/31/24 05:30 12/31/24 05:30 12/31/24 04:00 12/31/24 05:30
Physical Exam
Exam
General: Well Developed, Well Nourished and No Apparent Distress
HEENT: Normocephalic and Anicteric
Respiratory: Clear and Non Labored Respirations; Negative Wheezes
Cardiac: S1/S2 and Regular Rhythm
GI: Soft, Non Tender, Non Distended and Normal Bowel Sounds
Skin: Warm and Dry
Neuro: Awake, Alert and Oriented
Psych: Other (anxious)
Results
WBC 8.2 10^3/uL (4.8-10.8) 12/31/24 04:11
Hgb 8.2 g/dL (12.0-16.0) L D 12/31/24 04:11
Hct 27.0 % (37.0-47.0) L 12/31/24 04:11
MCV 68.0 fL (81.0-99.0) L 12/31/24 04:11
Plt Count 328 10^3/uL (130-400) D 12/31/24 04:11
Absolute Neuts (auto) 6.1 10^3/uL (1.4-6.5) 12/31/24 04:11
Sodium 137 mmol/L (135-145) 12/31/24 04:11
Potassium 4.4 mmol/L (3.5-5.1) 12/31/24 04:11
Chloride 109 mmol/L (98-107) H 12/31/24 04:11
Carbon Dioxide 22 mmol/L (22-30) 12/31/24 04:11
BUN 35 mg/dl (7-17) H 12/31/24 04:11
Creatinine 0.9 mg/dL (0.6-1.0) 12/31/24 04:11
Calcium 9.4 mg/dl (8.4-10.2) 12/31/24 04:11
Total Bilirubin 1.7 mg/dl (0.2-1.3) H 12/31/24 04:11
AST 24 U/L (14-36) 12/31/24 04:11
ALT 18 U/L (0-35) 12/31/24 04:11
Alkaline Phosphatase 43 U/L (38-126) 12/31/24 04:11
Diagnostic Image Results:
Prior GI Procedures:
EGD: None
Colonoscopy: None
Assessment / Plan
-
She has a past medical history of nonischemic cardiomyopathy, endocarditis, heart failure reduced EF 35 to 40% 05/2023, moderate bioprosthetic mitral regurg, HTN, HLD, mitral valve replacement on Eliquis, pacemaker secondary to complete heart block
Medtronic dual-chamber 2015, paroxysmal A-fib, atrial tachycardia send post PVI December 2022, small bowel obstruction, insomnia, hypothyroidism presenting after outpatient biopsy showing hemoglobin of 5. Patient was admitted for low hemoglobin and
GI bleed.
#Acute GI bleed versus severe iron deficiency anemia on Eliquis
#History of anemia iron deficiency
Heme positive stool
Initial Hgb 5.7 s/p 2 pRBC Hgb 8.6
Last Eliquis 12/29
Maroon stools this a.m. 12/31
Possibly actively bleeding, upper GI versus lower GI, DDx includes PUD angioectasias malignancy
- Hold Eliquis
- PPI
- CTA
- Clear liquid diet, no red liquids, bowel prep
- Plan for Endo/[facility] tomorrow
- Follow H&H closely
This is a preliminary note, refer to attending note for final recommendations.
-
-
Thank you for consultation and allowing me to participate in the patient's care. Please call the online program coordinator GI physician during the after hours with any questions or concerns.
[2024-12-31 10:26] LABS: Hematocrit 27.9 % (37.0-47.0); Hemoglobin 8.6 g/dL (12.0-16.0)
[2024-12-31] MEDS: NON-FORMULARY ITEM 5 MG PO ×2 (11:59→19:43)
--- NOTE | 2024-12-31 12:30 | CM ---
Addendum entered by Beronica Sutton 12/31/24 12:40:
IMM benefit explained; form signed @ 1235
Original Note:
Met with patient at bedside; initial assessment and Case Management Consult completed; Advance Directive information packet provided
Phamacy verified: [facility] @ [address] [place] [address]
Lives alone; apartment 12-13 steps to enter; railings present; bath has tub w/ shower
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
NO SNF or Home Health utilization history
Friend will provide transport home
Plan: Discharge to home anticipated but Case Management will monitor and support needs if identified
[2024-12-31] MEDS: FERRLECIT 110 MG IV (13:12)
[2024-12-31] MEDS: NULYTELY SOLUTION 4 LITERS PO (14:08)
--- NOTE | 2024-12-31 16:02 | CON.CAR ---
Addendum entered and electronically signed by Dany Beebe MD 12/31/24 17:18:
Patient seen and examined
Agree with TUAN Martinez's note and assessment
Agree with TUAN Martinez's plan
Patient well-known to me due to prior pulmonary vein isolation in 2022 see separate report and emergency dual-chamber pacemaker for complete heart block in 2016. She has a Tilden ejection fraction most recently 45% with moderate mitral valve
bioprosthetic mitral valve regurgitation. Now with GI bleeding with bright red blood per rectum down to a hemoglobin of 5.7. She is in sinus rhythm today. Plan is for endoscopy and colonoscopy tomorrow.
Exam:
HEENT normocephalic atraumatic
Nonfocal neurologically
JVP 6
Cor regular with a 1 out of 6 systolic ejection murmur at the axilla
Abdomen soft mildly distended nontender
Trace extremity edema
Left-sided pacemaker intact
Sinus rhythm on telemetry with ventricular demand pacing
Assessment:
Presentation with BRBPR
Severe anemia
Suspected GI bleed
History of endocarditis status post bioprosthetic MVR in 2015
Dual-chamber pacemaker for complete heart block at time of MVR
Moderate bioprosthetic MR by echo 12/2023
Nonischemic cardiomyopathy with EF as low as 35% but most recently 45% by echo 12/2023
A-fib/A. tach status post PVI in 2022
Chronic Eliquis anticoagulation
Hypertension
Hyperlipidemia
Hypothyroidism
Type 2 diabetes
Anxiety
ECHO 12/2023: EF 40 to 45%, mild concentric LVH, abnormal septal motion with pacemaker in place, #29 bovine magna bioprosthetic MVR with peak/mean gradients 9/4 mmHg, moderate MR, moderate TR, PAP 35 mmHg
Plan:
- Plan for EGD/colonoscopy in a.m.
- Cardiology consulted for clearance for procedure given cardiac history as above
- She does not appear to have evidence of acute heart failure
- Denies chest pain, shortness of breath
- Check EKG. continue to follow on telemetry, in paced rhythm
- Given that she is a bioprosthetic MVR, does not require bridging with IV heparin. Ultimately if there is a long-term need for oral anticoagulation could be considered for watchman implantation once her GI evaluation is completed. Would defer to
her primary sticker on Dr. Ball and this could be discussed as an outpatient. If the watchman was planned we likely would perform concomitant posterior wall isolation while in the left atrium.
- Reviewed most recent guidelines regarding antibiotic prophylaxis in setting of prior valve replacement. She does not require antibiotics pre-EGD/colonoscopy as felt to be low risk for development of endocarditis
- Okay to proceed with EGD/colonoscopy as planned
- Discussed with nursing
Original Note:
Consultation
Consultation Request
Date/Time Consultation Performed: 12/31/24
Requesting Provider: Dr. Nguyen
Performing Provider: Yumiko Martinez PA-C for Dr. JANINA Bolivar
Reason for Consultation: cardiac clearance for EGD/colonoscopy
Medical History
-
Chief Complaint: BRBPR
History of Present Illness:
Patient is a 74-year-old female with past medical history of endocarditis status post bioprosthetic mitral valve replacement in 2015, now with moderate bioprosthetic regurgitation, cardiomyopathy with EF as low as 35 but most recently 45%,
dual-chamber pacemaker for complete heart block at time of MVR, A-fib/A. tach status post PVI in 2022 on chronic Eliquis who presented to [facility] due to bright red blood per rectum. She reports she initially had this approximately 2 weeks ago,
however then went away the following day. She states it then started again causing her to come to the ER for further evaluation. Hemoglobin was 5.7 on arrival. She feels as though this was secondary to eating a lot of tomatoes over the last
several weeks. She states she has never had a colonoscopy. Nursing reports she has had maroon stools overnight. Plan is for EGD/colonoscopy in AM. GI has consulted cardiology for clearance for procedures. Patient is without chest pain,
shortness of breath, palpitations at present.
PMH:
History of endocarditis status post bioprosthetic MVR in 2015
Dual-chamber pacemaker for complete heart block at time of MVR
Moderate bioprosthetic MR by echo 12/2023
Nonischemic cardiomyopathy with EF as low as 35% but most recently 45% by echo 12/2023
A-fib/A. tach status post PVI in 2022
Chronic Eliquis anticoagulation
Hypertension
Hyperlipidemia
Hypothyroidism
Type 2 diabetes
Anxiety
Past Medical History
Past Medical History: Other (in HPI)
Social History
Tobacco: Former Smoker (remote)
Alcohol: Occasional
Personal: Single
Living: Alone
Employment: Employed
Family History
Family History: CAD
Allergies / Home Medications
Allergy/AdvReac Type Severity Reaction Status Date / Time
codeine Allergy Hives Verified 12/30/24 14:31
iodine Allergy CONGESTION Verified 12/30/24 14:31
shellfish derived Allergy CONGESTION Verified 12/30/24 14:31
Sulfa (Sulfonamide Allergy Unknown Verified 12/30/24 14:31
Antibiotics)
�Medication �Instructions �Recorded �Confirmed �Type
zolpidem 10 mg tablet 10 mg PO HSPRN PRN sleep 10/21/15 12/30/24 History
carvedilol 3.125 mg tablet 3.125 mg PO BID ##60 11/13/15 12/30/24 Rx
multivitamin with folic acid 400 1 tab PO DAILY ##0 11/13/15 12/30/24 Rx
mcg tablet (Tab-A-Rod)
furosemide 20 mg tablet 20 mg PO SUWE Fluid 12/01/15 12/30/24 History
retention/Swelling
lisinopril 2.5 mg tablet 2.5 mg PO DAILY Blood pressure 06/05/20 12/30/24 History
Cbd Gummies 1 tab PO HS Sleep 12/26/22 12/30/24 History
alprazolam 0.5 mg tablet 0.5 mg PO QID Mental Health/Anxiety 12/26/22 12/30/24 History
apixaban 5 mg tablet (Eliquis) 5 mg PO BID Blood Clot 12/26/22 12/30/24 History
Prevention/Tx
atorvastatin 40 mg tablet 40 mg PO DAILY High Cholesterol 12/26/22 12/30/24 History
Saccharomyces boulardii 250 mg 250 mg PO DAILY Supplement 01/15/23 12/30/24 History
capsule (Probiotic (S.boulardii))
thiamine HCl (vitamin B1) 100 mg 100 mg PO DAILY Supplement 01/15/23 12/30/24 History
tablet (Vitamin B-1)
ezetimibe 10 mg tablet 10 mg PO DAILY High Cholesterol 07/05/23 12/30/24 History
ivabradine 5 mg tablet 5 mg PO BID Heart Failure 07/05/23 12/30/24 History
levothyroxine 25 mcg tablet 25 mcg PO DAILY Thyroid 07/05/23 12/30/24 History
vitamin B complex 1 cap PO DAILY Supplement 07/05/23 12/30/24 History
metformin 500 mg tablet,extended 1,000 mg PO BID Diabetes 12/30/24 12/30/24 History
release 24 hr
Review of Systems
-
History Source: Patient
All other systems: Negative unless noted
Physical Exam
Vital Signs
Temp Pulse Resp BP Pulse Ox
98.5 F 77 17 130/58 97
12/31/24 15:59 12/31/24 12:00 12/31/24 12:00 12/31/24 12:00 12/31/24 12:00
Lab Results
12/31/24 04:11
Physical Exam
General: No Apparent Distress and Comfortable
HEENT: Normocephalic, Anicteric and Moist Mucous Membranes
Respiratory: Clear and Non Labored Respirations
Cardiac: S1/S2, Regular Rhythm and Murmur
GI: Soft, Non Tender, Non Distended and Normal Bowel Sounds
Musculoskeletal: No Clubbing, No Cyanosis and No Edema
Skin: Warm, Dry and Other (sternotomy scar)
Neuro: AO x 3
Impression / Plan
-
Primary Creamery Worker: Dr. Mercy Ball
Assessment:
Presentation with BRBPR
Severe anemia
Suspected GI bleed
History of endocarditis status post bioprosthetic MVR in 2015
Dual-chamber pacemaker for complete heart block at time of MVR
Moderate bioprosthetic MR by echo 12/2023
Nonischemic cardiomyopathy with EF as low as 35% but most recently 45% by echo 12/2023
A-fib/A. tach status post PVI in 2022
Chronic Eliquis anticoagulation
Hypertension
Hyperlipidemia
Hypothyroidism
Type 2 diabetes
Anxiety
ECHO 12/2023: EF 40 to 45%, mild concentric LVH, abnormal septal motion with pacemaker in place, #29 bovine magna bioprosthetic MVR with peak/mean gradients 9/4 mmHg, moderate MR, moderate TR, PAP 35 mmHg
Plan:
- Patient presents with severe anemia and recent bright red blood per rectum, painless. Being worked up for GI bleed
- Plan for EGD/colonoscopy in a.m.
- Cardiology consulted for clearance for procedure given cardiac history as above
- She does not appear to have evidence of acute heart failure
- Denies chest pain, shortness of breath
- Check EKG. continue to follow on telemetry, in paced rhythm
- Given that she is a bioprosthetic MVR, does not require bridging with IV heparin
- Reviewed most recent guidelines regarding antibiotic prophylaxis in setting of prior valve replacement. She does not require antibiotics pre-EGD/colonoscopy as felt to be low risk for development of endocarditis
- Okay to proceed with EGD/colonoscopy as planned
- Discussed with nursing
Data Reviewed
-
Medical Tests (Nuc Med, Echo etc): Report Reviewed by me
Labs: Labs Reviewed by me
Old Records: Reviewed
--- NOTE | 2024-12-31 16:26 | PTCARENOTE ---
Patient started bowel prep at 1400. Pt able to drink about half of prep at this time.
[2024-12-31 17:05] LABS: Hematocrit 31.4 % (37.0-47.0); Hemoglobin 9.6 g/dL (12.0-16.0)
[2024-12-31] MEDS: COREG 3.125 MG PO (19:43)
--- NOTE | 2024-12-31 20:44 | PTCARENOTE ---
patient continuing bowl prep. Patient having liquid bowl movements. Patient very anxious about procedure in am. assessment and vitals as charted. call ovalle in reach.
[2024-12-31] MEDS: AMBIEN 5 MG PO (21:35)
[2025-01-01] VITALS (15 sets, daily range): BP systolic 89–122; BP diastolic 47–78; BMI 26.6
--- NOTE | 2025-01-01 03:31 | W.PN.UPDATE ---
Update Note
Progress Note Update
-Reported by the nursing staff that the patient had unwitnessed fall. Patient was found on the floor with abrasion to the left arm.
-On assessment patient is confused not able to tell what happened. Patient moved JAQUELIN and BLE with no problem while she is trying to get out of the bed. Abrasion noted on the LT arm. No other injuries noted.
-CBC, bmp, head CT ordered.
-Will start neuro check per protocol and continue fall precautions.
Head CT is pending
[2025-01-01] MEDS: VALIUM INJECTION 2 MG IV ×2 (03:34→03:49)
[2025-01-01] MEDS: ZOFRAN 4 MG IV (03:50)
[2025-01-01 04:22] LABS: ALT (SGPT) 18 U/L (0-35); AST (SGOT) 25 U/L (14-36); Albumin 3.9 g/dl (3.5-5.0); Alkaline Phosphatase 57 U/L (38-126); Blood Urea Nitrogen 23 mg/dl (7-17); Calcium 9.7 mg/dl (8.4-10.2); Carbon Dioxide 21 mmol/L (22-30); Chloride 111 mmol/L (98-107); Estimated Creatinine Clearance 44 ml/min; Glucose 93 mg/dl (70-99); Magnesium 1.8 mg/dl (1.6-2.3); Potassium 4.2 mmol/L (3.5-5.1); Sodium 139 mmol/L (135-145); Total Protein 6.1 g/dl (6.3-8.2); eGFR > 60.00
[2025-01-01] MEDS: SYNTHROID PO (04:22)
--- NOTE | 2025-01-01 04:36 | FALL ---
Description of Fall:
Saw on monitor that patient's leads were removed, walked into the room and found patient sitting on the floor next to the bed. Patient's iv was pulled out and new cut on patient's left arm. Assisted patient back into bed and patient became very
confused and disorientated. Patient kept trying to jump out of bed. Notified WARP DYEING VAT TENDER, 4 point restraints ordered and applied. WARP DYEING VAT TENDER at beside to assess. Nursing storeroom supervisor notified.
Injuries Noted:
left arm skin tear
Action Taken:
4 point restraints, head CT, blood work
Name of Provider Notified: Marii CARR
[2025-01-01 05:32] LABS: Hematocrit 28.7 % (37.0-47.0); Hemoglobin 8.7 g/dL (12.0-16.0); Mean Corp Hgb Conc. 30.3 g/dL (33.0-37.0); Mean Corpuscular Volume 68.2 fL (81.0-99.0); Platelet Count 355 10^3/uL (130-400); Red Cell Dist. Width 24.7 % (11.5-14.5)
--- NOTE | 2025-01-01 06:50 | W.PN.HOSP.TC ---
Today's Communication/Plan
-
NPO for egd/colonoscopy today
Maintain Fall Precautions
Monitor H&H
Assessment / Plan
Assessment / Plan
Physical Exam
General: No acute distress, appears comfortable at this time
HEENT: NormoCephalic, Anicteric, Moist mucous membranes, PERRLA
Respiratory: Clear; No Wheezes, Rales or Rhonchi
Cardiac: S1/S2; No Murmur, Rub, Gallop or Peripheral Edema
GI: Soft, Non Tender, Non Distended, Normal Bowel Sounds present
Musculoskeletal: No Clubbing, No Cyanosis and No Edema
Skin: Warm and Dry; No Rash
Neuro: AO x 3 conversant coherent
Psych: Calm
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
#Acute GI bleed versus severe iron deficiency anemia on Eliquis
#History of anemia iron deficiency
#Low B12 level
Heme positive stool history of hemorrhoids
- Transfuse 2 units PRBC with appropriate response noted
- Hold Eliquis, metformin
-Cardio eval appreciated cleared to proceed with EGD/Colonoscopy, no need for hep gtt or abx prophylaxis hx endocarditis
- Consult GI appreciated NPO EGD/colonoscopy today
#Acute hypotension due to blood loss anemia
#HTN/hypotension
- BP since improved following transfusions as above
- resumed carvedilol 3.125 mg p.o. twice daily and lisinopril 2.5 mg daily w holding parameters
- Home Lasix remains on hold at this time given NPO as above
#Acute pyuria
Patient asymptomatic
Given IV Rocephin in ER
no significant growth noted in urine cx
monitor off abx
#Anxiety
#Insmonia
-Continue alprazolam 0.5 mg p.o. 4 times daily
-home Ambien resumed at reduced dose 5 mg HS, 5mg HSPRN also available if scheduled dose insufficient
#01/01 Fall overnight Unwitnessed fall
CT head noted no acute abn's
maintain fall precautions
#Hypothyroidism
Continue levothyroxine 25 mcg p.o. daily
#HLD
Hold Zetia 10 mg daily
#Bioprosthetic mitral valve replacement
#Medtronic dual-chamber pacemaker 2016 secondary to heart block
#Paroxysmal A-fib
#Paroxysmal atrial tachycardia status post PVI December 2022
#Nonischemic cardiomyopathy, heart failure reduced EF 35 to 40% May 20, 2023
#endocarditis hx
2D echo echo August 2022 EF 40-45% moderate bioprosthetic mitral regurg
- Continue Ivabradine 5 mg p.o. twice daily (patient's own med)
Other PMH:
Small bowel obstruction
DVT prophylaxis
SCDs
Full code
Discussed with patient and patient's close friened Flor
I spent a total of 55 minutes with the patient or on the floor. More than 50% of this time involved counseling and coordination of care.
Anticipated Discharge: 24 - 48 hours
Subjective/Interval History
-
Date of Service: January 01, 2025
No acute distress, resting comfortably in bed, awaiting EGD/colonoscopy. Events overnight noted, unwitness fall, CT head no acute abn's. Patient doesn't remember falling, only remembers being found on the floor.
Objective Data
-
Labs:
Laboratory Results
01/01/25
03:39
WBC 9.8
Hgb 8.7 L
Hct 28.7 L
Plt Count 355
Sodium 139
Potassium 4.2
Chloride 111 H
Carbon Dioxide 21 L
BUN 23 H
Creatinine 0.9
Glucose 93
Calcium 9.7
Total Bilirubin 2.1 H
AST 25
ALT 18
Alkaline Phosphatase 57
Vital Signs:
Vital Signs
Temp Pulse Resp BP Pulse Ox
97.0 F 81 22 122/57 95
12/31/24 22:55 01/01/25 05:00 01/01/25 05:00 01/01/25 04:18 12/31/24 20:41
I&O
12/30/24 12/31/24 01/01/25
06:59 06:59 06:59
Intake Total 500 / 500
Output Total 750 / 750
Balance -250 / -250
[2025-01-01] MEDS: VITAMIN B-12 1000 MCG PO (08:20)
[2025-01-01] MEDS: ZESTRIL 2.5 MG PO (08:21)
[2025-01-01 08:22] LABS: Venous Blood Gas B.E. -3.4 mmol/L (-4 to +4); Venous Blood Gas O2 Sat % 100.0 %
[2025-01-01] MEDS: XANAX 0.5 MG PO ×4 (08:22→22:02)
[2025-01-01] MEDS: COREG 3.125 MG PO ×2 (08:22→20:20)
[2025-01-01] MEDS: VITAMIN B1 100 MG PO (08:22)
[2025-01-01] MEDS: FLORASTOR 250 MG PO (08:22)
[2025-01-01] MEDS: B COMPLEX w/VITAMIN C 1 CAPLET PO (08:22)
[2025-01-01] MEDS: NON-FORMULARY ITEM 5 MG PO ×2 (08:23→20:20)
[2025-01-01] MEDS: THERAGRAN 1 TABLET PO (08:24)
[2025-01-01] MEDS: PROTONIX 100 IV (08:45)
--- NOTE | 2025-01-01 11:07 | PN.CDI ---
CDI
- -
CDI:
Physician Documentation Request
Admit Date: 12/30/24 18:15
Dear Doctor José,
Please review the following and provide your response in the progress notes.
Clinical Indicators:
PN, 12/31
#Acute GI bleed versus severe iron deficiency anemia on Eliquis
#...- Transfuse 2 units PRBC with appropriate response noted
#...- Hold Eliquis, metformin
Based on the above and your clinical assessment, please clarify the relationship, if any, between these conditions:
Yes, Acute GI Bleed is enhanced by/contributed to/associated with/due to Eliquis.
No, Acute GI Bleed is not enhanced by/contributed to/related to/associated with/due to Eliquis but it is due to ___. (Please specify)
Other (please specify)
Use of terms such as suspected, likely, concern for, or probable (associated with a specific diagnosis that is being evaluated, monitored, or treated as if it exists) are acceptable and can be coded in the inpatient setting, when documented at the
time of discharge.
Thank you,
Elizabeth Kelly RN BSN CCDS
CDI Specialist
Please contact via tiger text
Please use your independent medical judgment in providing your response.
--- NOTE | 2025-01-01 12:55 | W.PN.GI.CBS2 ---
Addendum entered and electronically signed by Bethany Da Silva MD 01/01/25 18:53:
Please see EGD/colon notes.
Original Note:
Today's Communication / Plan
-
Endoscopy/colonoscopy today
mass found at ileocecal valve, possible neoplasm, biposy taken and sent for pathology
colorectal consult
CT Chest/Abdomen/pelvis w contrast
CEA
DC PPI gtt
This is a preliminary note, refer to attending note for final recommendations.
Assessment / Plan
-
She has a past medical history of nonischemic cardiomyopathy, endocarditis, heart failure reduced EF 35 to 40% 05/2023, moderate bioprosthetic mitral regurg, HTN, HLD, mitral valve replacement on Eliquis, pacemaker secondary to complete heart block
Medtronic dual-chamber 2015, paroxysmal A-fib, atrial tachycardia send post PVI December 2022, small bowel obstruction, insomnia, hypothyroidism presenting after outpatient biopsy showing hemoglobin of 5. Patient was admitted for low hemoglobin and
GI bleed.
#Acute GI bleed versus severe iron deficiency anemia on Eliquis
#History of anemia iron deficiency
Heme positive stool
Initial Hgb 5.7 s/p 2 pRBC Hgb 8.6
Last Eliquis 12/29
Maroon stools this a.m. 01/01
CTA if signs of acute bleed
Possibly actively bleeding, upper GI versus lower GI,
Anticoagulation and antibiotics discussed with cardiology
- Hold Eliquis for surgical intervention
- npo for surgical planning
- Endo/[facility] today
-mass found at ileocecal valve, possible neoplasm, biposy taken and sent for pathology
-colorectal consult
-CT C/A/P
-CEA
- Follow H&H closely
This is a preliminary note, refer to attending note for final recommendations.
Subjective
Subjective
Patient was seen at bedside. Overnight did have a fall and CT head was ordered with no abnormalities. Patient states she is doing about the same, continues to have episode of maroon-colored stool this a.m. denies nausea vomiting chills fevers.
Date of Service: January 01, 2025
Objective
Data Reviewed
Laboratory Data:
Laboratory Results
01/01/25 03:39
01/01/25 03:39
Laboratory Results
Phosphorus 3.8 mg/dl (2.5-4.5) 01/01/25 03:39
Magnesium 1.8 mg/dl (1.6-2.3) 01/01/25 03:39
Total Bilirubin 2.1 mg/dl (0.2-1.3) H 01/01/25 03:39
AST 25 U/L (14-36) 01/01/25 03:39
ALT 18 U/L (0-35) 01/01/25 03:39
Alkaline Phosphatase 57 U/L (38-126) 01/01/25 03:39
Vital Signs and I&O:
Vital Signs
Temp Pulse Resp BP Pulse Ox
97.6 F 80 22 112/61 95
01/01/25 11:42 01/01/25 10:00 01/01/25 10:00 01/01/25 10:00 12/31/24 20:41
I&O
12/31/24 01/01/25 01/02/25
06:59 06:59 06:59
Intake Total 500 / 500
Output Total 750 / 750
Balance -250 / -250
Physical Exam
Physical Exam
HEENT: Anicteric
Cardiology: Normal Sinus Rhythm, S1 and S2
Pulmonary: Clear
GI: Soft, Non Distended, Non Tender and Normal Bowel Sounds
Extremities: No Edema
[2025-01-01 14:11] LABS: Nucleated Red Blood Cells % 0 %
--- NOTE | 2025-01-01 14:18 | CM ---
Following up on Patient. Progress notes state that patient had a fall yesterday and was confused. PT/OT is still following to determine Home vs. SNF.
PLAN: Home vs SNF
[2025-01-01] MEDS: FERRLECIT 110 MG IV (16:43)
--- NOTE | 2025-01-01 17:08 | W.PN.CARDCBS ---
Today's Communication / Plan
-
Would resume Eliquis when safe from GI perspective
Stable cardiac status
We will sign off, please re-engage as needed
Impression / Plan
-
Primary Med Dir: Dr. Mercy Ball
Assessment:
Presentation with BRBPR
Severe anemia
Suspected GI bleed
History of endocarditis status post bioprosthetic MVR in 2015
Dual-chamber pacemaker for complete heart block at time of MVR
Moderate bioprosthetic MR by echo 12/2023
Nonischemic cardiomyopathy with EF as low as 35% but most recently 45% by echo 12/2023
A-fib/A. tach status post PVI in 2022
Chronic Eliquis anticoagulation
Hypertension
Hyperlipidemia
Hypothyroidism
Type 2 diabetes
Anxiety
ECHO 12/2023: EF 40 to 45%, mild concentric LVH, abnormal septal motion with pacemaker in place, #29 bovine magna bioprosthetic MVR with peak/mean gradients 9/4 mmHg, moderate MR, moderate TR, PAP 35 mmHg
Plan:
- Patient presents with severe anemia and recent bright red blood per rectum, painless. Being worked up for GI bleed. Cardiology was consulted for clearance for procedure given cardiac history as above.
- Colonoscopy report reviewed. Concern for likely malignancy.
- GI is recommending Eliquis be held. Would resume when safe from their perspective.
Stable cardiac status
We will sign off, please re-engage as needed
Discussed with nursing
Progress Note - Med Dir
Subjective
Date of Service: January 01, 2025
NAOE. No cardiac complaints. Colonoscopy performed this afternoon concerning for colon CA.
Objective
Labs:
01/01/25 03:39
01/01/25 03:39
Labs
Hgb 8.7 g/dL (12.0-16.0) L 01/01/25 03:39
Hct 28.7 % (37.0-47.0) L 01/01/25 03:39
Plt Count 355 10^3/uL (130-400) 01/01/25 03:39
Sodium 139 mmol/L (135-145) 01/01/25 03:39
Potassium 4.2 mmol/L (3.5-5.1) 01/01/25 03:39
BUN 23 mg/dl (7-17) H 01/01/25 03:39
Creatinine 0.9 mg/dL (0.6-1.0) 01/01/25 03:39
Glucose 93 mg/dl (70-99) 01/01/25 03:39
Vital Signs and I&O:
Vital Signs
Temp Pulse Resp BP Pulse Ox
97.6 F 73 20 107/64 98
01/01/25 16:40 01/01/25 16:15 01/01/25 16:15 01/01/25 16:15 01/01/25 16:26
Vital Signs
Temp Pulse Resp BP Pulse Ox
97.6 F 73 20 107/64 98
01/01/25 16:40 01/01/25 16:15 01/01/25 16:15 01/01/25 16:15 01/01/25 16:26
Intake & Output
12/30/24 12/31/24 01/01/25 01/02/25
06:59 06:59 06:59 06:59
Intake Total 500 / 500
Output Total 750 / 750
Balance -250 / -250
Physical Exam
Physical Exam
Gen: NAD, AAOx3
HEENT: NC/AT, sclera anicteric
Neck: No JVD
CV: RRR, NL s1/s2
Lungs: CTAB
Abd: S/ND
Ext: No LE edema
Skin: Warm, dry
Neuro: Non-focal
--- NOTE | 2025-01-01 21:32 | CON.CRS ---
Consultation
-
Date/Time Consultation Performed: 01/01/2025 7:30 PM
Performing Provider: Donny Todd MD
Reason for Consultation: Colon mass
Medical History
-
History of Present Illness:
Patient is a 74-year-old female with PMH of NICM (EF 35-40%), history of endocarditis, MVR 2016, complete heart block s/p PPM, paroxysmal A-fib/A. tach s/p ablation, HTN, HLD, hypothyroidism, SBO x 2 (first was 2001 treated nonoperatively, second
was 2007 associated with her appendectomy) who presents after developing worsening dyspnea with exertion over the last 2 to 3 months and routine blood work showing anemia. She was recommended to go to the ED and her Hb was 5.7. She received PRBC x
2 and underwent EGD and colonoscopy today. EGD showed submucosal esophageal nodule and duodenal polyps. The colonoscopy showed diverticulosis extending into the transverse colon, 3 ascending colon polyps, 2 rectal polyps, a medium sized mass on
the ileocecal valve that was biopsied and 'bulbousness' in the rectum. Due to the presentation and appearance of the mass, this is concerning for colon cancer and colorectal was consulted. She denies any N/V, abdominal pain or change in bowel
habits. She does admit that she has been having rectal bleeding associated with BMs that she thought was hemorrhoids. However, the bleeding had become worse more recently and mixed in with the stool. Denies urinary symptoms. Prior to this
admission, she had never had a colonoscopy.
Past Medical History
Past Medical History: Other (As above)
Past Surgical History: Other (MVR 2016, PPM, appendectomy 2007, cardiac ablation, tongue/throat polyp removals in the for benign tumors)
Social History
Tobacco: Non-Smoker
Alcohol: Former (Quit 6 months ago)
Drug: Marijuana (Quit 1 year ago)
Personal: Single
Living: Other (Has sister who she does not want informed of her admission or diagnosis)
Employment: Employed
Family History
Family History: Other (Denies family history of CRC; however, both parents in their 40s)
Allergies / Home Medications
Allergy/AdvReac Type Severity Reaction Status Date / Time
codeine Allergy Hives Verified 12/30/24 14:31
iodine Allergy CONGESTION Verified 12/30/24 14:31
shellfish derived Allergy CONGESTION Verified 12/30/24 14:31
Sulfa (Sulfonamide Allergy Unknown Verified 12/30/24 14:31
Antibiotics)
�Medication �Instructions �Recorded �Confirmed �Type
zolpidem 10 mg tablet 10 mg PO HSPRN PRN sleep 10/21/15 12/30/24 History
carvedilol 3.125 mg tablet 3.125 mg PO BID ##60 11/13/15 12/30/24 Rx
multivitamin with folic acid 400 1 tab PO DAILY ##0 11/13/15 12/30/24 Rx
mcg tablet (Tab-A-Rod)
furosemide 20 mg tablet 20 mg PO SUWE Fluid 12/01/15 12/30/24 History
retention/Swelling
lisinopril 2.5 mg tablet 2.5 mg PO DAILY Blood pressure 06/05/20 12/30/24 History
Cbd Gummies 1 tab PO HS Sleep 12/26/22 12/30/24 History
alprazolam 0.5 mg tablet 0.5 mg PO QID Mental Health/Anxiety 12/26/22 12/30/24 History
apixaban 5 mg tablet (Eliquis) 5 mg PO BID Blood Clot 12/26/22 12/30/24 History
Prevention/Tx
atorvastatin 40 mg tablet 40 mg PO DAILY High Cholesterol 12/26/22 12/30/24 History
Saccharomyces boulardii 250 mg 250 mg PO DAILY Supplement 01/15/23 12/30/24 History
capsule (Probiotic (S.boulardii))
thiamine HCl (vitamin B1) 100 mg 100 mg PO DAILY Supplement 01/15/23 12/30/24 History
tablet (Vitamin B-1)
ezetimibe 10 mg tablet 10 mg PO DAILY High Cholesterol 07/05/23 12/30/24 History
ivabradine 5 mg tablet 5 mg PO BID Heart Failure 07/05/23 12/30/24 History
levothyroxine 25 mcg tablet 25 mcg PO DAILY Thyroid 07/05/23 12/30/24 History
vitamin B complex 1 cap PO DAILY Supplement 07/05/23 12/30/24 History
metformin 500 mg tablet,extended 1,000 mg PO BID Diabetes 12/30/24 12/30/24 History
release 24 hr
Review of Systems
-
A 10 point review of systems was completed, and was negative except as per HPI.
Physical Exam
Vital Signs
Temp 97.6 F 01/01/25 19:00
Pulse 77 01/01/25 20:20
Resp Rate 18 01/01/25 18:00
Blood pressure 118/63 01/01/25 20:20
SaO2 93 01/01/25 21:29
12/31/24 01/01/25 01/02/25
06:59 06:59 06:59
Actual Weight 61.7 kg
Body Mass Index (BMI) 26.6
Lab Results / Allergies
01/01/25 03:39
01/01/25 03:39
WBC 9.8 10^3/uL (4.8-10.8) 01/01/25 03:39
Hgb 8.7 g/dL (12.0-16.0) L 01/01/25 03:39
Hct 28.7 % (37.0-47.0) L 01/01/25 03:39
Plt Count 355 10^3/uL (130-400) 01/01/25 03:39
Abs Immat Gran (auto) 0.1 10^3/uL (0-0.05) H 01/01/25 03:39
Neutrophils % 73.5 % (42.2-75.2) 01/01/25 03:39
Allergy/AdvReac Type Severity Reaction Status Date / Time
codeine Allergy Hives Verified 12/30/24 14:31
iodine Allergy CONGESTION Verified 12/30/24 14:31
shellfish derived Allergy CONGESTION Verified 12/30/24 14:31
Sulfa (Sulfonamide Allergy Unknown Verified 12/30/24 14:31
Antibiotics)
Physical Exam
General: Well Developed, Well Nourished and No Apparent Distress
HEENT: Normocephalic and Atraumatic
Respiratory: Non Labored Respirations
Cardiac: S1/S2
GI: Soft, Non Tender and Non Distended
Skin: Warm and Dry
Neuro: AO x 3
Data Reviewed
-
CT Scan: Image Personally Visualized and interpreted, Discussed with Physician (Dr. Da Silva) and Discussed with Patient
Labs: Labs Reviewed by me and Discussed with Patient
Assessment / Plan
-
74-year-old female with PMH of NICM (EF 35-40%), history of endocarditis, MVR 2015, complete heart block s/p PPM, paroxysmal A-fib/A. tach s/p ablation, HTN, HLD, hypothyroidism, SBO x 2 (first was 2001 treated nonoperatively, second was 2007
associated with her appendectomy) who presents after developing worsening dyspnea with exertion over the last 2 to 3 months and routine blood work showing anemia. In the ED, Hb was 5.7 and received PRBC x 2. Today, EGD showed submucosal esophageal
nodule and duodenal polyps. The colonoscopy showed diverticulosis extending into the transverse colon, 3 ascending colon polyps, 2 rectal polyps, a medium sized mass on the ileocecal valve that was biopsied and 'bulbousness' in the rectum. Prior to
this admission, she had never had a colonoscopy
�Ileocecal mass in setting of GI bleed and symptomatic anemia
�Follow-up path, elevated suspicion for cancer
�Will obtain CT chest, abdomen and pelvis tomorrow; due to iodine contrast allergy, will premedicate with Benadryl and steroids
�CEA in a.m. with nutrition labs
�Lengthy discussion regarding colon masses and likelihood of this being a cancer, which I suspect is high; either way, it needs to be removed; I explained the treatment for colon cancer, which depends on whether it is a stage IV or stage I-III;
stage IV requires chemotherapy whereas stage I-III requires surgery; surgery would include removal of the colon as well as the lymph nodes for staging; certain stage II and stage III cancers require adjuvant chemotherapy; regarding timing of
surgery, I have availability Saturday; pending medical/cardiac clearance and results of CT scan, we can proceed with surgery on Saturday; she can either restart her diet and repeat a bowel prep on Saturday or continue clears over the weekend;
after this lengthy discussion, she would like to stay with clears to avoid another bowel prep
�Will request cardiac clearance for general anesthesia
� Continue clears; will order clear ensures
�If prealbumin is low, will order TPN tomorrow
� Recommend DVT PPx with Lovenox
� Appreciate hospitalist
� Had discussion regarding medical proxy; she made it very clear that she does not want her sister informed of her admission or of her diagnoses; if she requires a medical proxy, she would prefer this to be her friend Promise Johns at [phone]
[2025-01-01] MEDS: AMBIEN 5 MG PO (22:02)
[2025-01-02] VITALS (14 sets, daily range): BP systolic 104–135; BP diastolic 48–93; BMI 25.6
[2025-01-02 04:44] LABS: Hematocrit 28.9 % (37.0-47.0); Hemoglobin 8.6 g/dL (12.0-16.0); Mean Corp Hgb Conc. 29.8 g/dL (33.0-37.0); Mean Corpuscular Volume 69.1 fL (81.0-99.0); Nucleated Red Blood Cells % 0 %; Platelet Count 350 10^3/uL (130-400); Red Cell Dist. Width 25.2 % (11.5-14.5)
[2025-01-02 05:02] LABS: ALT (SGPT) 18 U/L (0-35); AST (SGOT) 26 U/L (14-36); Albumin 3.7 g/dl (3.5-5.0); Alkaline Phosphatase 52 U/L (38-126); Blood Urea Nitrogen 20 mg/dl (7-17); Calcium 9.5 mg/dl (8.4-10.2); Carbon Dioxide 19 mmol/L (22-30); Chloride 111 mmol/L (98-107); Estimated Creatinine Clearance 43 ml/min; Glucose 71 mg/dl (70-99); Magnesium 1.7 mg/dl (1.6-2.3); Potassium 4.2 mmol/L (3.5-5.1); Sodium 139 mmol/L (135-145); Total Protein 5.8 g/dl (6.3-8.2); eGFR > 60.00
[2025-01-02 05:04] LABS: C-Reactive Protein 8.00 mg/L (0.0-10.00)
[2025-01-02 05:08] LABS: Prealbumin (Transthyretin) 24.1 mg/dl (17.6-36.0)
[2025-01-02] MEDS: SYNTHROID 25 MCG PO (05:25)
[2025-01-02 05:34] LABS: CEA 1.34 ng/ml
--- NOTE | 2025-01-02 07:46 | W.PN.HOSP.TC ---
Today's Communication/Plan
-
steroid prep
CT chest/abd/pelvis staging
trial low dose trazodone
Assessment / Plan
Assessment / Plan
Physical Exam
General: No acute distress, appears comfortable at this time
HEENT: NormoCephalic, Anicteric, Moist mucous membranes, PERRLA
Respiratory: Clear; No Wheezes, Rales or Rhonchi
Cardiac: S1/S2; No Murmur, Rub, Gallop or Peripheral Edema
GI: Soft, Non Tender, Non Distended, Normal Bowel Sounds present
Musculoskeletal: No Clubbing, No Cyanosis and No Edema
Skin: Warm and Dry; No Rash
Neuro: AO x 3 conversant coherent
Psych: Calm
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
#Acute GI bleed versus severe iron deficiency anemia on Eliquis
#History of anemia iron deficiency
#Low B12 level
Heme positive stool history of hemorrhoids
- Transfuse 2 units PRBC with appropriate response noted
- Hold Eliquis, metformin
-Cardio eval appreciated cleared to proceed with EGD/Colonoscopy, no need for hep gtt or abx prophylaxis hx endocarditis
- Consult GI appreciated
- 01/01 EGD appreciated normal esophagus/stomach, submucosal esophagus nodule biopsied, flattened mucosa duodenum bx to r/o celiac, 4 duodenal polyps bx, one duodenal polyp bx and tattooed
- 01/01 colonoscopy appreciated diverticulosis, malignant tumor ileocecal valve (biopsied) likely cause AMINA and rectal bleeding, 5 polyps resected, hemorrhoids noted
-CRS eval appreciated pending CT chest/abd/pelvis for staging, tentative plan for colon mass resection Tues pending cardiac/medical clearance.
#Acute hypotension due to blood loss anemia
#HTN/hypotension
- BP since improved following transfusions as above
- resumed carvedilol 3.125 mg p.o. twice daily and lisinopril 2.5 mg daily w holding parameters
- Home Lasix remains on hold at this time
#Acute pyuria
Patient asymptomatic
Given IV Rocephin in ER
no significant growth noted in urine cx
monitor off abx
#Anxiety
#Insomnia
-Continue alprazolam 0.5 mg p.o. 4 times daily
-home Ambien resumed at reduced dose 5 mg HS, 5mg HSPRN also available if scheduled dose insufficient
-Low dose trazodone 12.5 mg HS started
#01/01 Fall overnight Unwitnessed fall
CT head noted no acute abn's
maintain fall precautions
#Hypothyroidism
Continue levothyroxine 25 mcg p.o. daily
#HLD
Hold Zetia 10 mg daily
#Bioprosthetic mitral valve replacement
#Medtronic dual-chamber pacemaker 2016 secondary to heart block
#Paroxysmal A-fib
#Paroxysmal atrial tachycardia status post PVI December 2022
#Nonischemic cardiomyopathy, heart failure reduced EF 35 to 40% May 20, 2023
#endocarditis hx
2D echo echo August 2022 EF 40-45% moderate bioprosthetic mitral regurg
- Continue Ivabradine 5 mg p.o. twice daily (patient's own med)
Other PMH:
Small bowel obstruction
DVT prophylaxis
SCDs
Medical proxy noted to be patient's close friend Promise, contact information listed in [employer]
Full code
I spent a total of 45 minutes with the patient or on the floor. More than 50% of this time involved counseling and coordination of care.
Anticipated Discharge: > 48 hours
Subjective/Interval History
-
Date of Service: January 02, 2025
No acute distress, resting comfortably in bed, overall reports feeling well. Denies pain. Endorses poor sleep.
Objective Data
-
Labs:
Laboratory Results
01/02/25
04:26
WBC 8.3
Hgb 8.6 L
Hct 28.9 L
Plt Count 350
Sodium 139
Potassium 4.2
Chloride 111 H
Carbon Dioxide 19 L
BUN 20 H
Creatinine 0.9
Glucose 71
Calcium 9.5
Total Bilirubin 1.4 H
AST 26
ALT 18
Alkaline Phosphatase 52
Vital Signs:
Vital Signs
Temp Pulse Resp BP Pulse Ox
98.0 F 79 22 113/58 97
01/02/25 03:00 01/02/25 06:08 01/02/25 06:08 01/02/25 06:08 01/02/25 06:08
I&O
01/01/25 01/02/25 01/03/25
06:59 06:59 06:59
Intake Total 110 / 110
Balance 110 / 110
[2025-01-02] MEDS: OMNIPAQUE 50 ML PO (09:15)
[2025-01-02] MEDS: COREG 3.125 MG PO ×2 (09:16→21:16)
[2025-01-02] MEDS: XANAX 0.5 MG PO ×4 (09:16→21:18)
[2025-01-02] MEDS: NON-FORMULARY ITEM 5 MG PO ×2 (09:19→21:17)
[2025-01-02] MEDS: SOLU-CORTEF 200 MG IV (10:44)
[2025-01-02] MEDS: BENADRYL 50 MG IV (10:44)
[2025-01-02] MEDS: FLUSH (NSS) 1 FLUSH IV (10:47)
--- NOTE | 2025-01-02 11:35 | PTCARENOTE ---
Patient NPO for CT scan. Patient completed oral contrast without difficulty. Premedicated with IV benadryl and hydrocortisone as ordered. Patient is currently off unit for CT scan of abdomen.
--- NOTE | 2025-01-02 13:20 | W.PN.CRS1 ---
Today's Communication / Plan
-
as below
Assessment/Plan
-
74-year-old female with PMH of NICM (EF 35-40%), history of endocarditis, MVR 2015, complete heart block s/p PPM, paroxysmal A-fib/A. tach s/p ablation, HTN, HLD, hypothyroidism, SBO x 2 (first was 2001 treated nonoperatively, second was 2007
associated with her appendectomy) who presents after developing worsening dyspnea with exertion over the last 2 to 3 months and routine blood work showing anemia. In the ED, Hb was 5.7 and received PRBC x 2. Today, EGD showed submucosal esophageal
nodule and duodenal polyps. The colonoscopy showed diverticulosis extending into the transverse colon, 3 ascending colon polyps, 2 rectal polyps, a medium sized mass on the ileocecal valve that was biopsied and 'bulbousness' in the rectum. Prior to
this admission, she had never had a colonoscopy
AFVSS
WBC 8.3, Hb 8.6 from 8.7, Cr 0.9
�Ileocecal mass in setting of GI bleed and symptomatic anemia
�Follow-up path, elevated suspicion for cancer
�Will obtain CT chest, abdomen and pelvis; due to iodine contrast allergy, will premedicate with Benadryl and steroids
�CEA 1.34
�Tenatively plan for OR Saturday
�Will request cardiac clearance for general anesthesia
� Continue clears; will order clear ensures
� DVT PPx with Lovenox
� Appreciate hospitalist
� Had discussion regarding medical proxy; she made it very clear that she does not want her sister informed of her admission or of her diagnoses; if she requires a medical proxy, she would prefer this to be her friend Promise Johns at [phone]
Subjective Data
Subjective Data
Date of Service: January 02, 2025
No issues overnight. Denies N/V, having bowel function.
Objective Data
-
Vital Signs
Temp Pulse Resp BP Pulse Ox
98.3 F 79 22 113/58 97
01/02/25 07:24 01/02/25 06:08 01/02/25 06:08 01/02/25 06:08 01/02/25 06:08
Intake & Output
01/01/25 01/02/25 01/03/25
06:59 06:59 06:59
Intake Total 110 / 110
Balance 110 / 110
Intake:
IV piggybacks 110 / 110
Other:
Number of approximated SMALL 2
amounts of urine
Number of approximated MODERATE 1
amounts of urine
Lab Results
01/02/25 04:26
01/02/25 04:26
Physical Exam
-
General: No Acute Distress and AOx3
HEENT: Grossly Normal
Abdomen: Soft, Non Distended, Non Tender, No Guarding and No Rebound
Neurological: No Motor Deficits
Skin: Warm and Dry
[2025-01-02] MEDS: THERAGRAN 1 TABLET PO (14:51)
[2025-01-02] MEDS: FLORASTOR 250 MG PO (14:51)
[2025-01-02] MEDS: B COMPLEX w/VITAMIN C 1 CAPLET PO (14:52)
[2025-01-02] MEDS: FERRLECIT 110 MG IV (14:53)
[2025-01-02] MEDS: VITAMIN B-12 1000 MCG PO (14:54)
[2025-01-02] MEDS: VITAMIN B1 100 MG PO (14:54)
[2025-01-02] MEDS: ZESTRIL PO (14:54)
--- NOTE | 2025-01-02 16:08 | CHAP ---
Tessa had requested a learning and development director visit. When this learning and development director arrived, she was prepping for a CT scan, and asked if the visit could take place later. SONU Draper advised that Saturday would be a better time. Will follow up tomorrow.
[2025-01-02] MEDS: LOVENOX 40 MG SC (18:01)
--- NOTE | 2025-01-02 18:44 | W.PN.GI.CBS2 ---
Today's Communication / Plan
-
ct read pending, colorectal surgery, gi signing off
Assessment / Plan
-
74-year-old female past medical history of nonischemic cardiomyopathy, heart failure, mitral valve replacement on Eliquis, pacemaker, A-fib, atrial tachycardia status post PVI admitted with rectal bleeding and hemoglobin of 5. Found to have
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 Incidentally found duodenal polyps as well.
I reviewed with the patient in detail again about her diagnosis. I appreciate Dr. Todd's input. CT chest abdomen and pelvis are pending. I reached out to radiologist to see if they can read it today. CEA 1.34. GI will sign off please call with
?s. Will follow-up the pathology and call the patient when results are available..
Subjective
Subjective
Date of Service: January 02, 2025
No issues overnight
Objective
Data Reviewed
Laboratory Data:
Laboratory Results
01/02/25 04:26
01/02/25 04:26
Laboratory Results
Phosphorus 4.2 mg/dl (2.5-4.5) 01/02/25 04:26
Magnesium 1.7 mg/dl (1.6-2.3) 01/02/25 04:26
Total Bilirubin 1.4 mg/dl (0.2-1.3) H 01/02/25 04:26
AST 26 U/L (14-36) 01/02/25 04:26
ALT 18 U/L (0-35) 01/02/25 04:26
Alkaline Phosphatase 52 U/L (38-126) 01/02/25 04:26
Vital Signs and I&O:
Vital Signs
Temp Pulse Resp BP Pulse Ox
98.5 F 90 15 110/93 97
01/02/25 15:46 01/02/25 18:00 01/02/25 18:00 01/02/25 18:00 01/02/25 16:00
I&O
01/01/25 01/02/25 01/03/25
06:59 06:59 06:59
Intake Total 110 / 110 1370 / 1370
Balance 110 / 110 1370 / 1370
Physical Exam
Physical Exam
GI: Non Distended and Non Tender
[2025-01-02] MEDS: DESYREL 12.5 MG PO (21:18)
[2025-01-02] MEDS: AMBIEN 5 MG PO (21:20)
[2025-01-03] VITALS (12 sets, daily range): BP systolic 78–136; BP diastolic 41–83
--- NOTE | 2025-01-03 02:13 | PTCARENOTE ---
Pt attempted to get OOB to BSC without assistance. Pt found sitting on side of bed with both legs hanging over the rail. Pt assisted to BSC with assist x1. Urinated, assisted back to bed. Bed alarm in place. Care ongoing.
[2025-01-03 05:04] LABS: Hematocrit 29.9 % (37.0-47.0); Hemoglobin 9.3 g/dL (12.0-16.0); Mean Corp Hgb Conc. 31.1 g/dL (33.0-37.0); Mean Corpuscular Volume 68.6 fL (81.0-99.0); Platelet Count 381 10^3/uL (130-400); Red Cell Dist. Width 25.8 % (11.5-14.5)
[2025-01-03 05:19] LABS: Blood Urea Nitrogen 22 mg/dl (7-17); Calcium 10.0 mg/dl (8.4-10.2); Carbon Dioxide 20 mmol/L (22-30); Chloride 110 mmol/L (98-107); Estimated Creatinine Clearance 43 ml/min; Glucose 117 mg/dl (70-99); Magnesium 1.9 mg/dl (1.6-2.3); Potassium 3.6 mmol/L (3.5-5.1); Sodium 139 mmol/L (135-145); eGFR > 60.00
[2025-01-03] MEDS: SYNTHROID 25 MCG PO (05:19)
--- NOTE | 2025-01-03 07:59 | W.PN.HOSP.TC ---
Addendum entered and electronically signed by Giovani Kumar MD 01/03/25 16:07:
acute GI bleed likely exacerbated by Eliquis use
Original Note:
Today's Communication/Plan
-
Urology and Oncology eval
Trazodone titrated up to 25 mg HS
monitor H&H
PT/OT
Assessment / Plan
Assessment / Plan
Physical Exam
General: No acute distress, appears releatively comfortable at this time
HEENT: NormoCephalic, Anicteric, Moist mucous membranes, PERRLA
Respiratory: Clear; No Wheezes, Rales or Rhonchi
Cardiac: S1/S2; No Murmur, Rub, Gallop or Peripheral Edema
GI: Soft, Non Tender, Non Distended, Normal Bowel Sounds present
Musculoskeletal: No Clubbing, No Cyanosis and No Edema
Skin: Warm and Dry; No Rash
Neuro: AO x 3 conversant coherent
Psych: Anxious
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
#Acute GI bleed versus severe iron deficiency anemia on Eliquis
#History of anemia iron deficiency
#Low B12 level
Heme positive stool history of hemorrhoids
- Transfuse 2 units PRBC with appropriate response noted
-IV iron infusion started 12/31 cont
-B12 supplementation started, cont
- Hold Eliquis, metformin
-Cardio eval appreciated cleared to proceed with EGD/Colonoscopy, no need for hep gtt or abx prophylaxis hx endocarditis
- Consult GI appreciated
- 01/01 EGD appreciated normal esophagus/stomach, submucosal esophagus nodule biopsied, flattened mucosa duodenum bx to r/o celiac, 4 duodenal polyps bx, one duodenal polyp bx and tattooed
- 01/01 colonoscopy appreciated diverticulosis, malignant tumor ileocecal valve (biopsied) likely cause AMINA and rectal bleeding, 5 polyps resected, hemorrhoids noted
-CRS eval appreciated
- CT chest/abd/pelvis concerning for bladder urothelial ca along with proximal ascending Colon Ca, multiple uterine leiomyoma noted.
- oncology and urology eval requested
#Acute hypotension due to blood loss anemia
#HTN/hypotension
- BP since improved following transfusions as above
- resumed carvedilol 3.125 mg p.o. twice daily and lisinopril 2.5 mg daily w holding parameters
- Home Lasix remains on hold at this time
#Acute pyuria
Patient asymptomatic
Given IV Rocephin in ER
no significant growth noted in urine cx
monitor off abx
#Anxiety
#Insomnia
-Continue alprazolam 0.5 mg p.o. 4 times daily
-home Ambien resumed at reduced dose 5 mg HS, 5mg HSPRN also available if scheduled dose insufficient
-Low dose trazodone 12.5 mg HS started titrated up to 25 mg HS
#01/01 Fall overnight Unwitnessed fall
CT head noted no acute abn's
maintain fall precautions
#Hypothyroidism
Continue levothyroxine 25 mcg p.o. daily
#HLD
Hold Zetia 10 mg daily
#Bioprosthetic mitral valve replacement
#Medtronic dual-chamber pacemaker 2016 secondary to heart block
#Paroxysmal A-fib
#Paroxysmal atrial tachycardia status post PVI December 2022
#Nonischemic cardiomyopathy, heart failure reduced EF 35 to 40% May 20, 2023
#endocarditis hx
2D echo echo August 2022 EF 40-45% moderate bioprosthetic mitral regurg
- Continue Ivabradine 5 mg p.o. twice daily (patient's own med)
Other PMH:
Small bowel obstruction
DVT prophylaxis
SCDs
Medical proxy noted to be patient's close friend Promise, contact information listed in [employer]
Full code
I spent a total of 48 minutes with the patient or on the floor. More than 50% of this time involved counseling and coordination of care.
Anticipated Discharge: > 48 hours
Subjective/Interval History
-
Date of Service: January 03, 2025
no acute distress comfortable prior to news regarding CT scan. Patient understandably distraught after being informed of bladder cancer. Verbal consolation attempted with some improvement noted.
Objective Data
-
Labs:
Laboratory Results
01/03/25
04:44
WBC 10.4
Hgb 9.3 L
Hct 29.9 L
Plt Count 381
Sodium 139
Potassium 3.6
Chloride 110 H
Carbon Dioxide 20 L
BUN 22 H
Creatinine 0.9
Glucose 117 H
Calcium 10.0
Vital Signs:
Vital Signs
Temp Pulse Resp BP Pulse Ox
97.4 F 76 15 123/64 93
01/03/25 04:38 01/02/25 21:16 01/02/25 18:00 01/02/25 21:16 01/02/25 21:39
I&O
01/02/25 01/03/25 01/04/25
06:59 06:59 06:59
Intake Total 110 / 110 1370 / 1370
Balance 110 / 110 1370 / 1370
[2025-01-03] MEDS: THERAGRAN 1 TABLET PO (09:47)
[2025-01-03] MEDS: FLORASTOR 250 MG PO (09:47)
[2025-01-03] MEDS: XANAX 0.5 MG PO ×4 (09:47→21:15)
[2025-01-03] MEDS: B COMPLEX w/VITAMIN C 1 CAPLET PO (09:47)
[2025-01-03] MEDS: VITAMIN B1 100 MG PO (09:47)
[2025-01-03] MEDS: VITAMIN B-12 1000 MCG PO (09:48)
[2025-01-03] MEDS: ZESTRIL 2.5 MG PO (09:48)
[2025-01-03] MEDS: NON-FORMULARY ITEM 5 MG PO ×2 (09:48→21:16)
[2025-01-03] MEDS: COREG 3.125 MG PO ×2 (09:48→21:18)
--- NOTE | 2025-01-03 11:47 | W.PN.GI.CBS2 ---
Today's Communication / Plan
-
urology, gi signing off
Assessment / Plan
-
74-year-old female past medical history of nonischemic cardiomyopathy, heart failure, mitral valve replacement on Eliquis, pacemaker, A-fib, atrial tachycardia status post PVI admitted with rectal bleeding and hemoglobin of 5. Found to have
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 Incidentally found duodenal polyps as well.
I reviewed with the patient in detail again about her diagnosis. I appreciate Dr. Todd's input. CT with extensive urothelial cancer - I d/w patient today that this is likely a second primary. I d/w hospitalist and CRS and surgery PA - urology
has been consulted. CEA 1.34. GI will sign off please call with ?s. Will follow-up the pathology and call the patient when results are available..
Subjective
Subjective
Date of Service: January 03, 2025
no complaints
Objective
Data Reviewed
Laboratory Data:
Laboratory Results
01/03/25 04:44
01/03/25 04:44
Laboratory Results
Phosphorus 3.8 mg/dl (2.5-4.5) 01/03/25 04:44
Magnesium 1.9 mg/dl (1.6-2.3) 01/03/25 04:44
Total Bilirubin 1.4 mg/dl (0.2-1.3) H 01/02/25 04:26
AST 26 U/L (14-36) 01/02/25 04:26
ALT 18 U/L (0-35) 01/02/25 04:26
Alkaline Phosphatase 52 U/L (38-126) 01/02/25 04:26
Vital Signs and I&O:
Vital Signs
Temp Pulse Resp BP Pulse Ox
97.9 F 108 21 130/79 96
01/03/25 11:00 01/03/25 09:00 01/03/25 09:00 01/03/25 08:00 01/03/25 09:57
I&O
01/02/25 01/03/25 01/04/25
06:59 06:59 06:59
Intake Total 110 / 110 1370 / 1370
Balance 110 / 110 1370 / 1370
Physical Exam
Physical Exam
GI: Non Distended and Non Tender
--- NOTE | 2025-01-03 13:25 | CONS.URO ---
Consultation
-
Date/Time Consultation Performed: 1325 01/03
Performing Provider: Peffer
Reason for Consultation: Bladder tumor
Medical History
History of Present Illness
74[facility] from suspected GI bleed
s/p colonscopy with biopsy of a suspicious mass of the cecum concerning for malignancy
As part of preop staging imaging, CT C/A/P showed multiple extensive bladder tumors
Patient has only had one noted episode of gross hematuria which resolved
She otherwise has lifelong urinary frequency but no acute sx
Urinalysis showed only microscopic hematuria and Cx negative
Past Medical History:
nonischemic cardiomyopathy, heart failure reduced EF 35 to 40% May 20, 2023
endocarditis
echo August 2022 EF 40-45% moderate bioprosthetic mitral regurg
mitral valve replacement on
Iron deficiency anemia
B12 deficiency anemia
HTN/hypotension
HLD
Pacemaker secondary to complete heart block Medtronic dual-chamber 2015
Paroxysmal A-fib
Atrial tachycardia send post PVI December 2022
small bowel obstruction
Insomnia
Hypothyroidism
Past Surgical History:
Pacemaker secondary to complete heart block Medtronic dual-chamber 2015
Atrial tachycardia send post PVI December 2022
Mitral valve replacement 11/07/2015
Appendectomy
Social History
Tobacco: Former Smoker
Alcohol: Occasional
Personal: Single
Employment: Retired
Family History
Family History: Reviewed & Not Pertinent
Allergies/Home Medications
Allergies
Allergy/AdvReac Type Severity Reaction Status Date / Time
codeine Allergy Hives Verified 12/30/24 14:31
iodine Allergy CONGESTION Verified 12/30/24 14:31
shellfish derived Allergy CONGESTION Verified 12/30/24 14:31
Sulfa (Sulfonamide Allergy Unknown Verified 12/30/24 14:31
Antibiotics)
Home Medications
�Medication �Instructions �Recorded �Confirmed �Type
zolpidem 10 mg tablet 10 mg PO HSPRN PRN sleep 10/21/15 12/30/24 History
carvedilol 3.125 mg tablet 3.125 mg PO BID ##60 11/13/15 12/30/24 Rx
multivitamin with folic acid 400 1 tab PO DAILY ##0 11/13/15 12/30/24 Rx
mcg tablet (Tab-A-Rod)
furosemide 20 mg tablet 20 mg PO SUWE Fluid 12/01/15 12/30/24 History
retention/Swelling
lisinopril 2.5 mg tablet 2.5 mg PO DAILY Blood pressure 06/05/20 12/30/24 History
Cbd Gummies 1 tab PO HS Sleep 12/26/22 12/30/24 History
alprazolam 0.5 mg tablet 0.5 mg PO QID Mental Health/Anxiety 12/26/22 12/30/24 History
apixaban 5 mg tablet (Eliquis) 5 mg PO BID Blood Clot 12/26/22 12/30/24 History
Prevention/Tx
atorvastatin 40 mg tablet 40 mg PO DAILY High Cholesterol 12/26/22 12/30/24 History
Saccharomyces boulardii 250 mg 250 mg PO DAILY Supplement 01/15/23 12/30/24 History
capsule (Probiotic (S.boulardii))
thiamine HCl (vitamin B1) 100 mg 100 mg PO DAILY Supplement 01/15/23 12/30/24 History
tablet (Vitamin B-1)
ezetimibe 10 mg tablet 10 mg PO DAILY High Cholesterol 07/05/23 12/30/24 History
ivabradine 5 mg tablet 5 mg PO BID Heart Failure 07/05/23 12/30/24 History
levothyroxine 25 mcg tablet 25 mcg PO DAILY Thyroid 07/05/23 12/30/24 History
vitamin B complex 1 cap PO DAILY Supplement 07/05/23 12/30/24 History
metformin 500 mg tablet,extended 1,000 mg PO BID Diabetes 12/30/24 12/30/24 History
release 24 hr
Physical Exam
Vital Signs
Vital Signs
Temp Pulse Resp BP Pulse Ox
97.9 F 108 21 130/79 96
01/03/25 11:00 01/03/25 09:00 01/03/25 09:00 01/03/25 08:00 01/03/25 09:57
Lab / Testing Results
Laboratory Results
01/03/25 04:44
01/03/25 04:44
Physical Exam
General: Well Developed, Well Nourished and No Apparent Distress
Respiratory: Clear and Non Labored Respirations
GI: Soft and Non Tender
Neuro: AO x 3
Psych: Calm and Intact Judgement
Assessment / Plan
-
74F admitted with severe anemia and GI bleed s/p biopsy for likely malignant colon tumor
Found to have multiple large bladder tumors on staging CT concerning for urothelial carcinoma
- Multiple large bladder tumors c/w primary bladder cancer and discussed that
- Suspect bladder and colon tumors are separate primary malignancies, though will want to wait for results of colon biopsy before proceeding with any intervention
- If colon tumor is not urothelial carcinoma, would recommend cystoscopy, Transurethral resection of bladder tumor to obtain tissue diagnosis and staging information for the bladder
- Added to OR schedule for possible procedure 01/05
Data Reviewed
-
CT Scan: Image personally visualized and interpreted
Lab Data: Labs Reviewed
[2025-01-03] MEDS: FLUSH (NSS) 1 FLUSH IV (14:00)
[2025-01-03] MEDS: FERRLECIT 110 MG IV (14:00)
--- NOTE | 2025-01-03 14:39 | W.PN.CRS1 ---
Addendum entered and electronically signed by Donny Todd MD 01/03/25 19:57:
I saw and examined the patient.
The AREA FIELD PERSON's note was reviewed and I agree with the note.
Comment:
CT CAP showing multiple bladder tumors as well as the known ascending colon mass. No evidence of metastatic disease. Discussed with Dr. Marie from urology. This is concerning for potentially advanced bladder cancer, but will need biopsies to
confirm. Colon mass biopsies pending. Most likely, patient has 2 primaries. Metastatic bladder cancer to the colon is extremely rare. Will await pathology from the colon mass. Surgery for colon tumor resection is scheduled for Saturday
afternoon, but would postpone for multidisciplinary discussion regarding priorities, especially if treatment for the bladder cancer needs to be prioritized. Discussed the above with the patient.
Original Note:
Today's Communication / Plan
-
Continue clears
Assessment/Plan
-
74-year-old female with PMH of NICM (EF 35-40%), history of endocarditis, MVR 2015, complete heart block s/p PPM, paroxysmal A-fib/A. tach s/p ablation, HTN, HLD, hypothyroidism, SBO x 2 (first was 2001 treated nonoperatively, second was 2007
associated with her appendectomy) who presents after developing worsening dyspnea with exertion over the last 2 to 3 months and routine blood work showing anemia. In the ED, Hb was 5.7 and received PRBC x 2. Today, EGD showed submucosal esophageal
nodule and duodenal polyps. The colonoscopy showed diverticulosis extending into the transverse colon, 3 ascending colon polyps, 2 rectal polyps, a medium sized mass on the ileocecal valve that was biopsied and 'bulbousness' in the rectum. Prior to
this admission, she had never had a colonoscopy
AFVSS
WBC 10.4, Hb 9.3 from 8.6, Cr 0.9
Ileocecal mass in setting of GI bleed and symptomatic anemia
�Follow-up path, elevated suspicion for cancer
�CT chest/abd/pelvis for staging with suspicion for bladder ca, urology consulted. Multiple fibroids, may need bowling alley manager consult as well for hysterectomy; hold off for now
�CEA 1.34
�Tenatively plan for OR Saturday
�Will request cardiac clearance for general anesthesia, d/w cards and 2d echo is planned Saturday
� Continue clears with clear ensures
� DVT PPx with Lovenox
� Appreciate hospitalist
Re: medical proxy she does not want her sister informed of her admission or of her diagnoses; if she requires a medical proxy, she would prefer this to be her friend Promise Johns at [phone]
Subjective Data
Subjective Data
Date of Service: January 03, 2025
Pt seen and examined at bedside in conjunction with Dr. Da Silva. Denies n/v. Tolerating clears. No active complaints.
Objective Data
-
Vital Signs
Temp Pulse Resp BP Pulse Ox
97.9 F 108 21 130/79 96
01/03/25 11:00 01/03/25 09:00 01/03/25 09:00 01/03/25 08:00 01/03/25 09:57
Intake & Output
01/02/25 01/03/25 01/04/25
06:59 06:59 06:59
Intake Total 110 / 110 1370 / 1370
Balance 110 / 110 1370 / 1370
Intake:
Oral fluids 1300 / 1300
IV piggybacks 110 / 110 70 / 70
Other:
Number of approximated SMALL 1
amounts of urine
Number of approximated MODERATE 1 1
amounts of urine
Lab Results
01/03/25 04:44
01/03/25 04:44
Physical Exam
-
General: No Acute Distress and AOx3
HEENT: Grossly Normal
Abdomen: Soft, Non Distended, Non Tender, No Guarding and No Rebound
Neurological: No Motor Deficits
Skin: Warm and Dry
Data Reviewed
-
CT Scan: Image Reviewed and Report Reviewed
--- NOTE | 2025-01-03 14:48 | CON.ONC ---
Consultation
-
Date Consultation Requested: 01/03/25
Date Consultation Performed: 01/03/25
Requesting Provider: José
Performing Provider: vic
Reason for Consultation: colon mass, bladder masses
Impression
Impression
- ascending colon mass suspicious for colon cancer
- multiple bladder masses
- iron deficiency anemia due to blood loss
- hx of pAF on eliquis
Plan
Plan
- suspect likely two non-metastatic cancers with primary colon cancer in ascending colon and localized bladder cancer. no pelvic or abdominal adenopathy, distant metastatic disease on CT scans
- Path from colon mass pending from colonoscopy jan 02.
- CR planning for OR 01/05 pending cardiac clearance for colectomy. reviewed that depending on pathological stage we can review potential indications for adjuvant systemic therapy for colon cancer.
- urology following. will plan cystoscopy, TURBT assuming colon lesion in not urothelial met. we briefly reviewed management of urothelial cancer will depend on tumor staging as well.
- good hgb response to 2 units pBRCs. continue IV iron repletion to optimize hgb for upcoming procedures.
- will continue to follow.
Patient History
History of Present Illness
enid is a 74-year-old female w/ PMHx past medical history of nonischemic cardiomyopathy, heart failure reduced EF 35 to 40% May 20, 2023 endocarditis, echo August 2022 EF 40-45% moderate bioprosthetic mitral regurg, HTN/hypotension, HLD, mitral
valve replacement on Eliquis, pacemaker secondary to complete heart block Medtronic dual-chamber 2015, paroxysmal A-fib, atrial tachycardia send post PVI December 2022 who presented to ER for evaluation of new anemia on outpt labs with hgb drop to
5.7 g/dl. Anemia work up with severe ID w/ ferritin 3.4 ng/ml. GI was consulted and she underwent colonoscopy that revealed a malignant appearing non-obstructing mass in ileocecal region. biopsy pending. CR was consulted and tentatively planning for
colectomy on 01/05 pending cardiac clearance. Staging CT CAP showed 2.5 cm mucosal-based mass in the PROXIMAL ASCENDING COLON without surrounding adenopathy or distant metastatic disease. It also noted however several including some Large polypoid
intraluminal masses in the URINARY BLADDER suggestive for localized urothelial cancer without evidence of local invasion. it also showed multiple fibroids. Pt tells me she has had hematuria intermittently for almost 9 years, sometimes noticed by her
and others when getting UA for other reasons. She was referred to urology years ago but never followed up. She notes also being someone that urinated frequently, no dysuria. NO family hx of malignancy. She received 2 units pRBCs and is getting IV
iron. hgb up to 9.3 g/dl today.
Patient Medication
�Medication �Instructions �Recorded �Confirmed �Last Taken �Type
zolpidem 10 mg tablet 10 mg PO HSPRN PRN sleep 10/21/15 12/30/24 08/05/23 21:00 History
carvedilol 3.125 mg tablet 3.125 mg PO BID ##60 11/13/15 12/30/24 08/06/23 05:00 Rx
multivitamin with folic acid 400 1 tab PO DAILY ##0 11/13/15 12/30/24 08/05/23 08:00 Rx
mcg tablet (Tab-A-Rod)
furosemide 20 mg tablet 20 mg PO SUWE Fluid 12/01/15 12/30/24 08/04/23 08:00 History
retention/Swelling
lisinopril 2.5 mg tablet 2.5 mg PO DAILY Blood pressure 06/05/20 12/30/24 08/06/23 05:00 History
Cbd Gummies 1 tab PO HS Sleep 12/26/22 12/30/24 1 Week Ago History
~07/30/23
alprazolam 0.5 mg tablet 0.5 mg PO QID Mental Health/Anxiety 12/26/22 12/30/24 08/06/23 05:00 History
apixaban 5 mg tablet (Eliquis) 5 mg PO BID Blood Clot 12/26/22 12/30/24 08/06/23 05:00 History
Prevention/Tx
atorvastatin 40 mg tablet 40 mg PO DAILY High Cholesterol 12/26/22 12/30/24 08/06/23 05:00 History
Saccharomyces boulardii 250 mg 250 mg PO DAILY Supplement 01/15/23 12/30/24 08/04/23 08:00 History
capsule (Probiotic (S.bojossi))
thiamine HCl (vitamin B1) 100 mg 100 mg PO DAILY Supplement 01/15/23 12/30/24 08/05/23 08:00 History
tablet (Vitamin B-1)
ezetimibe 10 mg tablet 10 mg PO DAILY High Cholesterol 07/05/23 12/30/24 08/06/23 05:00 History
ivabradine 5 mg tablet 5 mg PO BID Heart Failure 07/05/23 12/30/24 08/06/23 05:00 History
levothyroxine 25 mcg tablet 25 mcg PO DAILY Thyroid 07/05/23 12/30/24 08/06/23 05:00 History
vitamin B complex 1 cap PO DAILY Supplement 07/05/23 12/30/24 08/05/23 08:00 History
metformin 500 mg tablet,extended 1,000 mg PO BID Diabetes 12/30/24 12/30/24 Unknown History
release 24 hr
Active Medications
Generic Name Dose Route Start Last Admin
Trade Name Freq PRN Reason Stop Dose Admin
Acetaminophen 650 mg 12/30/24 21:04
Acetaminophen 325 Mg Tablet PO 01/27/25 21:03
Q4HPRN PRN
mild pain/MARTINEZ/temp> 100.4F
Alprazolam 0.5 mg 12/30/24 21:04 01/03/25 14:00
Alprazolam 0.5 Mg Tablet PO 01/27/25 21:03 0.5 mg
QID ALVARADO Administration
Carvedilol 3.125 mg 12/31/24 20:00 01/03/25 09:48
Carvedilol 3.125 Mg Tablet PO 01/28/25 19:59 3.125 mg
BID ALVARADO Administration
Cyanocobalamin 1,000 mcg 12/31/24 08:30 01/03/25 09:48
Cyanocobalamin (Vitamin B-12) 500 Mcg Tablet PO 01/28/25 08:29 1,000 mcg
DAILY ALVARADO Administration
Enoxaparin Sodium 40 mg 01/02/25 18:00 01/02/25 18:01
Enoxaparin Sodium 40 Mg/0.4 Ml Syringe SC 01/30/25 17:59 40 mg
QPM ALVARADO Administration
Ferric Sodium Gluconate 110 mls @ 110 mls/hr 12/31/24 14:00 01/03/25 14:00
Complex 125 mg/ Sodium IV 01/04/25 14:59 110 mls
Chloride DAILY@1400 ALVARADO Administration
Levothyroxine Sodium 25 mcg 12/31/24 06:00 01/03/25 05:19
Levothyroxine 25 Mcg Tablet PO 01/28/25 05:59 25 mcg
DAILY@0600 ALVARADO Administration
Lisinopril 2.5 mg 01/01/25 08:00 01/03/25 09:48
Lisinopril 2.5 Mg Tablet PO 01/29/25 07:59 2.5 mg
DAILY ALVARADO Administration
Multivitamins Therapeutic 1 tablet 12/31/24 08:00 01/03/25 09:47
Multivitamin Tablet PO 01/28/25 07:59 1 tablet
DAILY ALVARADO Administration
Ivabradine 5 Mg 0 mg 12/31/24 11:00 01/03/25 09:48
Tablet; 1 Tab Po Bid PO 01/28/25 10:59 5 mg
BID ALVARADO Administration
Saccharomyces Boulardii 250 mg 01/01/25 08:00 01/03/25 09:47
Saccharomyces Boulardi (Florastor) 250 Mg Capsule PO 01/29/25 07:59 250 mg
DAILY ALVARADO Administration
Sodium Chloride 0 flush 12/30/24 22:00 01/03/25 14:00
Sodium Chloride 0.9% (Flush) Syringe IV 01/27/25 21:59 1 flush
PER PROTOCOL ALVARADO Administration
Thiamine HCl 100 mg 12/31/24 08:00 01/03/25 09:47
Thiamine 100 Mg Tablet PO 01/28/25 07:59 100 mg
DAILY ALVARADO Administration
Trazodone HCl 25 mg 01/03/25 09:05
Trazodone 50 Mg Tablet PO 01/30/25 21:59
HS ALVARADO
Vitamin B Complex/Vitamin C 1 caplet 12/31/24 08:00 01/03/25 09:47
Vitamin B Complex With Vitamin C Caplet PO 01/28/25 07:59 1 caplet
DAILY ALVARADO Administration
Zolpidem Tartrate 5 mg 12/31/24 22:00 01/02/25 21:20
Zolpidem Tartrate 5 Mg Tablet PO 01/28/25 21:59 5 mg
HS ALVARADO Administration
Zolpidem Tartrate 5 mg 12/31/24 10:37
Zolpidem Tartrate 5 Mg Tablet PO 01/28/25 10:36
HSPRN PRN
sleep
Review of Systems
-
History Source: Patient
All Other Systems: Reviewed and Negative (except noted in HPI)
Physical Exam
-
General: Well Developed, Well Nourished and No Apparent Distress
HEENT: Negative Jaundice
Cardiology: Normal Sinus Rhythm; Negative Murmur
Pulmonary: Clear
GI: Soft; Negative Distended
Musculoskeletal: No Edema
Neurology: Non Focal and No Lateralizing Symptoms
Labs
Lab Results
WBC 10.4 10^3/uL (4.8-10.8) 01/03/25 04:44
RBC 4.36 10^6/uL (4.20-5.40) 01/03/25 04:44
Hgb 9.3 g/dL (12.0-16.0) L 01/03/25 04:44
Hct 29.9 % (37.0-47.0) L 01/03/25 04:44
MCV 68.6 fL (81.0-99.0) L 01/03/25 04:44
MCH 21.3 pg (27.0-31.0) L 01/03/25 04:44
MCHC 31.1 g/dL (33.0-37.0) L 01/03/25 04:44
RDW 25.8 % (11.5-14.5) H 01/03/25 04:44
Plt Count 381 10^3/uL (130-400) 01/03/25 04:44
MPV 8.8 fL (7.4-10.4) 01/03/25 04:44
Abs Immat Gran (auto) 0.0 10^3/uL (0-0.05) 01/02/25 04:26
Absolute Neuts (auto) 6.3 10^3/uL (1.4-6.5) 01/02/25 04:26
Absolute Lymphs (auto) 1.2 10^3/uL (1.2-3.4) 01/02/25 04:26
Absolute Monos (auto) 0.8 10^3/uL (0.1-0.6) H 01/02/25 04:26
Absolute Eos (auto) 0.0 10^3/uL (0-0.7) 01/02/25 04:26
Absolute Basos (auto) 0.0 10^3/uL (0-0.2) 01/02/25 04:26
Immature Gran % 0.5 % (0-0.5) 01/02/25 04:26
Neutrophils % 75.1 % (42.2-75.2) 01/02/25 04:26
Lymphocytes % 14.4 % (20.5-51.1) L 01/02/25 04:26
Monocytes % 9.4 % (1.7-9.3) H 01/02/25 04:26
Eosinophils % 0.1 % (0-6) 01/02/25 04:26
Basophils % 0.5 % (0-2) 01/02/25 04:26
Creatinine 0.9 mg/dL (0.6-1.0) 01/03/25 04:44
Vital Signs
Vital Signs
Temp Pulse Resp BP Pulse Ox
97.9 F 108 21 130/79 96
01/03/25 11:00 01/03/25 09:00 01/03/25 09:00 01/03/25 08:00 01/03/25 09:57
--- NOTE | 2025-01-03 15:59 | CHAP ---
Tessa was sitting on the side of the bed, feeling rather overwhelmed. She does have a strong spirit, and she appreciated the opportunity to share. She looks forward to 'getting answers and making a plan.' Emotional and spiritual support provided,
along with a prayer blanket and assurance of our on-going availability.
--- NOTE | 2025-01-03 16:11 | CM ---
Following up on Patient. Hospitalist Note states that there is a suspiciou mass that could be related to Colon Cancer so plan for OR for colectomy.
PLAN: Anticipate SNF when ready.
--- NOTE | 2025-01-03 16:13 | CM ---
Following up on Patient. Hospitalist Note states that there is a suspicious mass that could be related to Colon Cancer so plan for OR for colectomy.
PLAN: Anticipate SNF when ready.
Initialized on 01/03/25 16:11 - END OF NOTE
[2025-01-03] MEDS: LOVENOX 40 MG SC (17:14)
[2025-01-03] MEDS: AMBIEN 5 MG PO (21:15)
[2025-01-03] MEDS: DESYREL 25 MG PO (21:16)
--- NOTE | 2025-01-03 22:35 | PTCARENOTE ---
Pt aaox3, forgetful. Bed alarm in place. Pt anxious regarding new cancer diagnosis. AV paced on monitor. L arm skin tear cleaned and redressed. Oral care done. Pt resting comfortably in bed at this time. VSS. Care ongoing.
[2025-01-04] VITALS (14 sets, daily range): BP systolic 78–125; BP diastolic 42–71; PULSE 79; O2SAT 96; BMI 25.3
[2025-01-04] MEDS: SYNTHROID 25 MCG PO (05:00)
[2025-01-04 05:45] LABS: Hematocrit 32.3 % (37.0-47.0); Hemoglobin 9.8 g/dL (12.0-16.0); Mean Corp Hgb Conc. 30.3 g/dL (33.0-37.0); Mean Corpuscular Volume 70.7 fL (81.0-99.0); Platelet Count 347 10^3/uL (130-400); Red Cell Dist. Width 26.7 % (11.5-14.5)
[2025-01-04 05:49] LABS: Blood Urea Nitrogen 17 mg/dl (7-17); Calcium 9.8 mg/dl (8.4-10.2); Carbon Dioxide 22 mmol/L (22-30); Chloride 113 mmol/L (98-107); Estimated Creatinine Clearance 43 ml/min; Glucose 120 mg/dl (70-99); Magnesium 1.8 mg/dl (1.6-2.3); Potassium 3.8 mmol/L (3.5-5.1); Sodium 141 mmol/L (135-145); eGFR > 60.00
[2025-01-04] MEDS: XANAX 0.5 MG PO ×4 (09:25→21:21)
[2025-01-04] MEDS: THERAGRAN 1 TABLET PO (09:25)
[2025-01-04] MEDS: VITAMIN B-12 1000 MCG PO (09:26)
[2025-01-04] MEDS: VITAMIN B1 100 MG PO (09:26)
[2025-01-04] MEDS: B COMPLEX w/VITAMIN C 1 CAPLET PO (09:26)
[2025-01-04] MEDS: COREG 3.125 MG PO ×2 (09:26→21:20)
[2025-01-04] MEDS: ZESTRIL 2.5 MG PO (09:26)
[2025-01-04] MEDS: FLORASTOR 250 MG PO (09:26)
[2025-01-04] MEDS: NON-FORMULARY ITEM 5 MG PO ×2 (09:27→21:21)
--- NOTE | 2025-01-04 09:39 | W.PN.ONC2 ---
Today's Communication / Plan
-
.
Impression
Impression
- ascending colon mass suspicious for colon cancer
- multiple bladder masses
- iron deficiency anemia due to blood loss
- hx of pAF on eliquis
Plan
Plan
- suspect likely two non-metastatic cancers with primary colon cancer in ascending colon and localized bladder cancer. no pelvic or abdominal adenopathy, distant metastatic disease on CT scans
- Path from colon mass pending from colonoscopy jan 02.
- CR planning for OR 01/05 pending cardiac clearance for colectomy. Potential indications for adjuvant systemic therapy for colon cancer will be determined by surgical pathology
- urology following. will plan cystoscopy, TURBT assuming colon lesion in not urothelial met. Management of urothelial cancer will depend on tumor staging as well.
- continue IV iron repletion
Subjective/Objective
Subjective
No new complaints
afebrile, no hypoxia or hypotension
denies pain or overt bleeding
OOB-> chair
moving bowels
Vital Signs:
Vital Signs
Temp Pulse Resp BP Pulse Ox
97.5 F 72 19 125/71 95
01/04/25 05:41 01/04/25 09:26 01/04/25 07:00 01/04/25 09:26 01/04/25 07:00
Lab Results:
Laboratory Data
WBC 7.9 10^3/uL (4.8-10.8) 01/04/25 05:14
Hgb 9.8 g/dL (12.0-16.0) L 01/04/25 05:14
Plt Count 347 10^3/uL (130-400) 01/04/25 05:14
eGFR > 60.00 01/04/25 05:14
Physical Exam
HEENT: Moist Mucous Membranes; No Jaundice
Pulmonary: Other (unlabored)
GI: Soft
Extremities: Pulses Present
--- NOTE | 2025-01-04 09:44 | CM ---
Patient seen at bedside with physician. Patient in IMU. Patient is pending testing results [facility]. Per chart review, patient for possible SNF vs home with VN pending further PT assessment. CM will continue to follow for discharge planning
needs.
Plan; home with VN vs SNF pending medical treatment plan
--- NOTE | 2025-01-04 09:56 | W.PN.HOSP.TC ---
Today's Communication/Plan
-
await ECHO
apprec urology and colorectal surgery
await biopsy results
Assessment / Plan
Assessment / Plan
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
Acute GI bleed (with hypotension-resolved) from apparent malignant tumor ileocecal valve with iron deficiency anemia and history thereof--exacerbated by Eliquis--Low B12 level--Heme positive stool history of hemorrhoids--s/p pRBC 2 units pRBCs--on
IV iron--cont B12 supplements--holding Eliquis and metformin--apprec cards for clearance--apprec GI--s/p EGD (essential WNL) and colonoscopy with (biopsied)--apprec CRS/urology--await decision for surgery--- resumed carvedilol 3.125 mg p.o. twice
daily and lisinopril 2.5 mg daily w holding parameters
bladder masses noted--apprec urology--CT chest/ab/pelvis concerning for bladder urothelial ca--apprec heme input for this and above (likely 2 primary cancers is working theory)
Acute pyuria--Patient asymptomatic--Given IV Rocephin in ER--no significant growth noted in urine cx--monitor off abx
Anxiety/Insomnia--Continue alprazolam 0.5 mg p.o. 4 times daily--home Ambien resumed at reduced dose 5 mg HS, 5mg HSPRN also available if scheduled dose insufficient--Low dose trazodone 12.5 mg HS started titrated up to 25 mg HS
overnight Unwitnessed fall 01/01/25--CT head noted no acute abn's
Hypothyroidism--Continue levothyroxine 25 mcg p.o. daily
HLD--Hold Zetia 10 mg daily
Bioprosthetic mitral valve replacement
Medtronic dual-chamber pacemaker 2015 secondary to heart block
Paroxysmal A-fib--Paroxysmal atrial tachycardia status post PVI December 2022
Nonischemic cardiomyopathy, heart failure reduced EF 35 to 40% May 20, 2023/endocarditis hx--2D echo echo August 2022 EF 40-45% moderate bioprosthetic mitral regurg-- Continue Ivabradine 5 mg p.o. twice daily (patient's own med)--apprec cards--
for ECHO
DVT prophylaxis--SCDs
code status--FULL CODE--Medical proxy noted to be patient's close friend Promise, contact information listed in [employer]
Anticipated Discharge: > 48 hours
Subjective/Interval History
-
Date of Service: January 04, 2025
pt c/o diarrhea--attributes it to liquid diet
Objective Data
-
Labs:
Laboratory Results
01/04/25
05:14
WBC 7.9
Hgb 9.8 L
Hct 32.3 L
Plt Count 347
Sodium 141
Potassium 3.8
Chloride 113 H
Carbon Dioxide 22
BUN 17
Creatinine 0.8
Glucose 120 H
Calcium 9.8
Vital Signs:
max temp for 24 hours
01/03/25
23:15
Temp 98.6 F
Vital Signs
Temp Pulse Resp BP Pulse Ox
97.5 F 72 19 125/71 95
01/04/25 05:41 01/04/25 09:26 01/04/25 07:00 01/04/25 09:26 01/04/25 07:00
I&O
01/03/25 01/04/25 01/05/25
06:59 06:59 06:59
Intake Total 1370 / 1370 1260 / 1260
Balance 1370 / 1370 1260 / 1260
Review of Systems
-
All other systems: Reviewed and negative
Abdomen/GI: Reports Diarrhea
Psych: Reports Anxious
Physical Exam
-
General: Well Developed, Well Nourished and No Apparent Distress
HEENT: Normocephalic and Atraumatic; Negative Oxygen
Respiratory: Clear to Auscultation; Negative Wheezes or Rhonchi
Cardiac: Regular Rhythm and S1/S2; Negative Murmur
GI: Soft, Nontender, Nondistended and Normal Bowel Sounds
Musculoskeletal: No Clubbing, No Cyanosis and No Edema
Skin: Warm and Dry
Neuro: Awake and Alert
Psych: Anxious
--- NOTE | 2025-01-04 11:12 | W.PN.CRS1 ---
Today's Communication / Plan
-
regular diet
holding off on OR for now, await biospy
Assessment/Plan
-
74-year-old female with PMH of NICM (EF 35-40%), history of endocarditis, MVR 2016, complete heart block s/p PPM, paroxysmal A-fib/A. tach s/p ablation, HTN, HLD, hypothyroidism, SBO x 2 (first was 2001 treated nonoperatively, second was 2007
associated with her appendectomy) who presents after developing worsening dyspnea with exertion over the last 2 to 3 months and routine blood work showing anemia. In the ED, Hb was 5.7 and received PRBC x 2. Today, EGD showed submucosal esophageal
nodule and duodenal polyps. The colonoscopy showed diverticulosis extending into the transverse colon, 3 ascending colon polyps, 2 rectal polyps, a medium sized mass on the ileocecal valve that was biopsied and 'bulbousness' in the rectum. Prior to
this admission, she had never had a colonoscopy
AFVSS
WBC 7.9, Hgb 9.8 (9.3)
Ileocecal mass in setting of GI bleed and symptomatic anemia
�Follow-up path, elevated suspicion for cancer - still pending
�CT chest/abd/pelvis for staging with suspicion for bladder ca, urology consulted. Multiple fibroids, may need pet store merchandiser consult as well for hysterectomy; hold off for now
�CEA 1.34
�Will hold off on OR tomorrow as we are still awaiting path from colonoscopy
-Urology for cysto
�Will request cardiac clearance for general anesthesia, d/w cards and 2d echo is planned Saturday
� Continue clears with clear ensures
� DVT PPx with Lovenox
� Appreciate hospitalist
-Okay to start heparin gtt from our perspective
-Will start regular diet
Subjective Data
Subjective Data
Date of Service: January 04, 2025
Patient states she has no pain. She is having loose stools. Denies nausea or vomiting.
Objective Data
-
Vital Signs
Temp Pulse Resp BP Pulse Ox
97.5 F 71 22 106/62 97
01/04/25 05:41 01/04/25 10:00 01/04/25 10:00 01/04/25 10:00 01/04/25 10:00
Intake & Output
01/03/25 01/04/25 01/05/25
06:59 06:59 06:59
Intake Total 1370 / 1370 1260 / 1260
Balance 1370 / 1370 1260 / 1260
Intake:
Oral fluids 1300 / 1300 1150 / 1150
IV piggybacks 70 / 70 110 / 110
Other:
Number of approximated SMALL 4
amounts of urine
Number of approximated MODERATE 1 1
amounts of urine
Lab Results
01/04/25 05:14
01/04/25 05:14
Physical Exam
-
General: No Acute Distress and AOx3
Abdomen: Soft, Non Distended and Non Tender
Skin: Warm and Dry
--- NOTE | 2025-01-04 13:58 | W.PN.URO.CBU ---
Today's Communication / Plan
-
OR tomorrow
Assessment / Plan
-
74F admitted with severe anemia and GI bleed s/p biopsy for likely malignant colon tumor
Found to have multiple large bladder tumors on staging CT concerning for urothelial carcinoma
- Multiple large bladder tumors c/w primary bladder cancer and discussed possible treatment pathways depending on pathology
- Suspect bladder and colon tumors are separate primary malignancies, though expedited results to confirm this were requested by Dr. Da Silva today
- Even if colon tumor is urothelial carcinoma, would recommend cystoscopy, transurethral resection of bladder tumor to obtain tissue diagnosis, staging information, and prevent further bleeding and anemia issues while undergoing definitive treatment
for both tumors
- Added to OR schedule for cystoscopy, transurethral resection of bladder tumor 01/05
- Discussed procedure and recovery. Reviewed high risk of bladder perforation and possible need for indwelling mejía catheter post procedure while bladder heals. Reviewed risks of bladder perforation, bleeding, incomplete resection, impact to
drainage of ureters especially on R where tumor appears to encase ureteral orifice
- Hold heparin gtt preop
- NPO at MN
Diagnosis
-
Date of Service: January 04, 2025
-
Patient Diagnosis:
Bladder tumor
Colon tumor
Severe anemia
GI bleed
Post Op Day:
Subjective
-
No events
No hematuria or symptoms
Objective
-
Vital Signs
Temp Pulse Resp BP Pulse Ox
97.5 F 72 14 106/62 95
01/04/25 05:41 01/04/25 11:00 01/04/25 11:00 01/04/25 10:00 01/04/25 11:00
Intake and Output
01/03/25 01/04/25 01/05/25
06:59 06:59 06:59
Intake Total 1370 / 1370 1260 / 1260
Balance 1370 / 1370 1260 / 1260
Intake:
Oral fluids 1300 / 1300 1150 / 1150
IV piggybacks 70 / 70 110 / 110
Other:
Number of approximated SMALL 4
amounts of urine
Number of approximated MODERATE 1 1
amounts of urine
Laboratory Results
01/04/25 05:14
01/04/25 05:14
Physical Exam
-
General - well developed, well nourished, no acute distress
Chest - clear
[2025-01-04] MEDS: FERRLECIT 110 MG IV (14:13)
[2025-01-04 15:11] LABS: APTT 33.7 Sec (23.4-35.0)
[2025-01-04] MEDS: HEPARIN 25000 UNITS/250 ML IV (15:36)
[2025-01-04] MEDS: HEPARIN 3500 UNITS IV (15:36)
[2025-01-04 16:34] LABS: Hematocrit 30.2 % (37.0-47.0); Hemoglobin 9.1 g/dL (12.0-16.0); Mean Corp Hgb Conc. 30.1 g/dL (33.0-37.0); Mean Corpuscular Volume 71.4 fL (81.0-99.0); Platelet Count 316 10^3/uL (130-400); Red Cell Dist. Width 26.8 % (11.5-14.5)
[2025-01-04 16:45] LABS: Anisocytosis 2+; Hypochromasia 1+; Macrocytosis 2+; Normal RBC Morphology No; Ovalocytes 1+; Poikilocytosis 2+; Stomatocytes 1+
--- NOTE | 2025-01-04 18:31 | PTCARENOTE ---
Patient AOx3. Anxious and forgetful. Bed and chair alarm on and audible. NSR with v-paced, BBB, and first degree on monitor. BP stable. Utilizes commode to go to the bathroom. Assist x1 when OOB. Tolerating oral diet. Heparin gtt running per order.
Call ovalle within reach, bed in lowest position, and bed of wheels locked.
--- NOTE | 2025-01-04 21:00 | PTCARENOTE ---
Caring for pt overnight. aaox3, but seems forgetful at times. Very anxious. BA & CA on. BSC X1, steady on feet. VSS. Heparin gtt running, to be turned off at 0300. OR in am. Vpaced, BBB, 1st degree heart block. Continues to have loose BMs. Deneis
pain. Will monitor.
[2025-01-04] MEDS: DESYREL 25 MG PO (21:21)
[2025-01-04] MEDS: AMBIEN 5 MG PO (21:40)
[2025-01-04 22:31] LABS: APTT 99.0 Sec (23.4-35.0)
[2025-01-05] VITALS (16 sets, daily range): BP systolic 95–131; BP diastolic 50–71; BMI 25.6
[2025-01-05 05:09] LABS: Blood Urea Nitrogen 26 mg/dl (7-17); Calcium 9.7 mg/dl (8.4-10.2); Carbon Dioxide 22 mmol/L (22-30); Chloride 110 mmol/L (98-107); Estimated Creatinine Clearance 39 ml/min; Glucose 122 mg/dl (70-99); Magnesium 1.9 mg/dl (1.6-2.3); Potassium 4.1 mmol/L (3.5-5.1); Sodium 139 mmol/L (135-145); eGFR 58.39
[2025-01-05 05:23] LABS: Hematocrit 31.2 % (37.0-47.0); Hemoglobin 9.4 g/dL (12.0-16.0); Mean Corp Hgb Conc. 30.1 g/dL (33.0-37.0); Mean Corpuscular Volume 71.4 fL (81.0-99.0); Platelet Count 315 10^3/uL (130-400); Red Cell Dist. Width 27.5 % (11.5-14.5)
[2025-01-05] MEDS: SYNTHROID 25 MCG PO (05:50)
[2025-01-05] MEDS: FLORASTOR 250 MG PO (07:26)
[2025-01-05] MEDS: XANAX 0.5 MG PO ×4 (07:26→22:34)
[2025-01-05] MEDS: COREG 3.125 MG PO (07:27)
[2025-01-05] MEDS: VITAMIN B-12 1000 MCG PO (07:27)
[2025-01-05] MEDS: B COMPLEX w/VITAMIN C 1 CAPLET PO (07:27)
[2025-01-05] MEDS: VITAMIN B1 100 MG PO (07:27)
[2025-01-05] MEDS: NON-FORMULARY ITEM 5 MG PO ×2 (07:27→20:15)
[2025-01-05] MEDS: ZESTRIL 2.5 MG PO (07:27)
[2025-01-05] MEDS: THERAGRAN 1 TABLET PO (07:27)
--- NOTE | 2025-01-05 08:12 | W.PN.HOSP.TC ---
Today's Communication/Plan
-
for cystoscopy today
Assessment / Plan
Assessment / Plan
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
Acute GI bleed (with hypotension-resolved) from apparent malignant tumor ileocecal valve with iron deficiency anemia and history thereof--exacerbated by Eliquis--Low B12 level--Heme positive stool history of hemorrhoids--s/p 2 units pRBCs--on IV
iron--cont B12 supplements--holding Eliquis and metformin, IV heparin drip started and on hold since 3AM--apprec cards for clearance--apprec GI--s/p EGD (essential WNL) and colonoscopy with (biopsied)--apprec CRS/urology--await decision for
surgery--- resumed carvedilol 3.125 mg p.o. twice daily and lisinopril 2.5 mg daily w holding parameters
bladder masses noted--apprec urology--CT chest/ab/pelvis concerning for bladder urothelial ca--apprec heme input for this and above (likely 2 primary cancers is working theory)--for cysto today
Acute pyuria--Patient asymptomatic--Given IV Rocephin in ER--no significant growth noted in urine cx--monitor off abx
Anxiety/Insomnia--Continue alprazolam 0.5 mg p.o. 4 times daily--home Ambien resumed at reduced dose 5 mg HS, 5mg HSPRN also available if scheduled dose insufficient--Low dose trazodone 12.5 mg HS started titrated up to 25 mg HS
overnight Unwitnessed fall 01/01/25--CT head noted no acute abn's
Hypothyroidism--Continue levothyroxine 25 mcg p.o. daily
HLD--Hold Zetia 10 mg daily
Bioprosthetic mitral valve replacement
Medtronic dual-chamber pacemaker 2015 secondary to heart block
Paroxysmal A-fib--Paroxysmal atrial tachycardia status post PVI December 2022--IV heparin on hold
Nonischemic cardiomyopathy, heart failure reduced EF 35 to 40% May 20, 2023/endocarditis hx--2D echo echo August 2022 EF 40-45% moderate bioprosthetic mitral regurg-- Continue Ivabradine 5 mg p.o. twice daily (patient's own med)--apprec cards--
ECHO pending
DVT prophylaxis--SCDs
code status--FULL CODE--Medical proxy noted to be patient's close friend Promise, contact information listed in [employer]
Anticipated Discharge: > 48 hours
Subjective/Interval History
-
Date of Service: January 05, 2025
pt nervous about surgery
wants SNF at d/c if qualifies
Objective Data
-
Labs:
Laboratory Results
01/04/25 01/05/25
22:13 04:24
WBC 8.2
Hgb 9.4 L
Hct 31.2 L
Plt Count 315
APTT 99.0 H
Sodium 139
Potassium 4.1
Chloride 110 H
Carbon Dioxide 22
BUN 26 H
Creatinine 1.0
Glucose 122 H
Calcium 9.7
Vital Signs:
max temp for 24 hours
01/05/25
04:22
Temp 98.3 F
Vital Signs
Temp Pulse Resp BP Pulse Ox
98.3 F 84 19 131/70 91
01/05/25 04:22 01/05/25 07:27 01/05/25 04:00 01/05/25 07:27 01/05/25 04:00
I&O
01/04/25 01/05/25 01/06/25
06:59 06:59 06:59
Intake Total 1260 / 1260 1070 / 1070
Balance 1260 / 1260 1070 / 1070
Review of Systems
-
All other systems: Reviewed and negative
Physical Exam
-
General: Well Developed, Well Nourished and No Apparent Distress
HEENT: Normocephalic and Atraumatic; Negative Oxygen
Respiratory: Clear to Auscultation; Negative Wheezes or Rhonchi
Cardiac: Regular Rhythm and S1/S2; Negative Murmur
GI: Soft, Nontender, Nondistended and Normal Bowel Sounds
Musculoskeletal: No Clubbing, No Cyanosis and No Edema
Neuro: Awake and Alert
Psych: Anxious
--- NOTE | 2025-01-05 08:22 | PTCARENOTE ---
Verbal report given to AREA FIELD WORKER Cherelle. Patient transported to OR via transport. VSS.
--- NOTE | 2025-01-05 11:54 | W.PN.URO.CBU ---
Today's Communication / Plan
-
- CBI to trend hematuria
- Hold heparin today
- Flush mejía PRN
Assessment / Plan
-
74F admitted with severe anemia and GI bleed s/p biopsy for likely malignant colon tumor
Found to have multiple large bladder tumors on staging CT concerning for urothelial carcinoma
pathology of colon showing colon adenocarcinoma primary
- s/p transurethral resection of bladder tumor 01/05/25
- Appearance consistent with urothelial carcinoma, likely muscle invasive and invasive into the R intramural ureter
- Extensive bladder involvement with greater than 80% of the bladder mucosa involved with bulky papillary tumor
- Tumor is not endoscopically resectable and a large volume of unresected tumor remains
- CBI to trend hematuria
- Hold heparin today
- Flush mejía PRN
- [place] management will likely include neoadjuvant chemotherapy followed by radical cystectomy/ileal conduit, combined case with colorectal for R colectomy
- If hematuria/persistent anemia issues preclude outpatient chemotherapy, surgery may need to be done sooner or prior to discharge
Diagnosis
-
Date of Service: January 05, 2025
-
Patient Diagnosis:
Bladder tumor
Colon tumor
Severe anemia
GI bleed
Post Op Day:
Subjective
-
No events
Objective
-
Vital Signs
Temp Pulse Resp BP Pulse Ox
98.3 F 70 20 99/71 98
01/05/25 04:22 01/05/25 08:00 01/05/25 08:00 01/05/25 08:00 01/05/25 08:00
Intake and Output
01/04/25 01/05/25 01/06/25
06:59 06:59 06:59
Intake Total 1260 / 1260 1070 / 1070
Balance 1260 / 1260 1070 / 1070
Intake:
Oral fluids 1150 / 1150 960 / 960
IV piggybacks 110 / 110 110 / 110
Other:
How many times incontinent 1
SMALL amount urine
Number of approximated SMALL 4
amounts of urine
Number of approximated MODERATE 1 4
amounts of urine
Laboratory Results
01/05/25 04:24
01/05/25 04:24
Physical Exam
-
General - well developed, well nourished, no acute distress
Chest - clear
Abdomen - soft
[2025-01-05 12:15] LABS: Glucose - Point of Care 165 mg/dl (70-99)
--- NOTE | 2025-01-05 12:38 | PTCARENOTE ---
Patient AOx3. Forgetful at times. Bed and chair alarm on and audible. Very anxious prior to procedure today. Emotional support provided. NSR with v-paced, BBB, and first degree on monitor. BP stable. Utilizes commode to go to the bathroom. Assist x1
when OOB. Tolerating oral diet. Call ovalle within reach, bed in lowest position, and bed of wheels locked.
--- NOTE | 2025-01-05 12:38 | PTCARENOTE ---
Patient transferred to [address] [place] [id number] from PACU. Verbal report given to [address] [place] [id number] RN Gavin. Patient belongings brought to [address] [place] [id number].
--- NOTE | 2025-01-05 13:13 | PTCARENOTE ---
Pt arrived to [facility] s/p TURBT. Pt returned with 3 way catheter and CBI infusing with light pink output. 100% on RA. L arm skin tear dressing changed. Bed locked and in lowest position. Care ongoing.
--- NOTE | 2025-01-05 14:28 | CM ---
Patient s/p procedure moved to 2 south today. CM will continue to follow for discharge planning needs.
Plan; possible SNF pending medical treatment plan
[2025-01-05] MEDS: COREG PO (19:46)
[2025-01-05] MEDS: DESYREL 25 MG PO (22:34)
[2025-01-05] MEDS: AMBIEN 5 MG PO (22:43)
[2025-01-06] VITALS (7 sets, daily range): BP systolic 108–137; BP diastolic 54–70; PULSE 71–79; O2SAT 98; BMI 25.6
[2025-01-06] MEDS: SYNTHROID 25 MCG PO (05:50)
[2025-01-06 07:11] LABS: Hematocrit 27.5 % (37.0-47.0); Hemoglobin 8.3 g/dL (12.0-16.0); Mean Corp Hgb Conc. 30.2 g/dL (33.0-37.0); Mean Corpuscular Volume 70.7 fL (81.0-99.0); Platelet Count 273 10^3/uL (130-400); Red Cell Dist. Width 28.4 % (11.5-14.5)
[2025-01-06 07:27] LABS: Blood Urea Nitrogen 23 mg/dl (7-17); Calcium 9.7 mg/dl (8.4-10.2); Carbon Dioxide 23 mmol/L (22-30); Chloride 109 mmol/L (98-107); Estimated Creatinine Clearance 55 ml/min; Glucose 128 mg/dl (70-99); Magnesium 1.9 mg/dl (1.6-2.3); Potassium 4.5 mmol/L (3.5-5.1); Sodium 139 mmol/L (135-145); eGFR > 60.00
[2025-01-06] MEDS: B COMPLEX w/VITAMIN C 1 CAPLET PO (07:46)
[2025-01-06] MEDS: THERAGRAN 1 TABLET PO (07:46)
[2025-01-06] MEDS: VITAMIN B1 100 MG PO (07:46)
[2025-01-06] MEDS: FLORASTOR 250 MG PO (07:46)
[2025-01-06] MEDS: XANAX 0.5 MG PO ×4 (07:46→21:13)
[2025-01-06] MEDS: VITAMIN B-12 1000 MCG PO (07:46)
[2025-01-06] MEDS: ZESTRIL 2.5 MG PO (07:47)
[2025-01-06] MEDS: COREG 3.125 MG PO ×2 (07:48→20:10)
[2025-01-06] MEDS: NON-FORMULARY ITEM 5 MG PO (07:48)
--- NOTE | 2025-01-06 10:02 | W.PN.URO.CBU ---
Today's Communication / Plan
-
- Remove mejía for trial of void
- Hold anticoagulation today, can resume once hematuria resolved
Assessment / Plan
-
74F admitted with severe anemia and GI bleed s/p biopsy for likely malignant colon tumor
Found to have multiple large bladder tumors on staging CT concerning for urothelial carcinoma
pathology of colon showing colon adenocarcinoma primary
- s/p transurethral resection of bladder tumor 01/05/25
- Appearance consistent with urothelial carcinoma, likely muscle invasive and invasive into the R intramural ureter
- Extensive bladder involvement with greater than 80% of the bladder mucosa involved with bulky papillary tumor
- Tumor is not endoscopically resectable and a large volume of unresected tumor remains
- Minimal hematuria off CBI
- Remove mejía for trial of void
- Hold anticoagulation today, can resume once hematuria resolved
- [place] management will likely include neoadjuvant chemotherapy followed by radical cystectomy/ileal conduit, combined case with colorectal for R colectomy
- If hematuria/persistent anemia issues preclude outpatient chemotherapy, surgery may need to be done sooner or prior to discharge
Diagnosis
-
Date of Service: January 06, 2025
-
Patient Diagnosis:
Bladder tumor
Colon tumor
Severe anemia
GI bleed
Post Op Day:
Subjective
-
No hematuria off CBI, slightly pink
Objective
-
Vital Signs
Temp Pulse Resp BP Pulse Ox
97.6 F 82 16 114/58 98
01/06/25 03:00 01/06/25 07:48 01/06/25 03:00 01/06/25 07:48 01/06/25 03:00
Intake and Output
01/05/25 01/06/25 01/07/25
06:59 06:59 06:59
Intake Total 1070 / 1070 480 / 480
Output Total 1350 / 1350
Balance 1070 / 1070 -870 / -870
Intake:
Oral fluids 960 / 960 480 / 480
IV piggybacks 110 / 110
Output:
True Urine Output from CBI 1350 / 1350
Other:
How many times incontinent 1
SMALL amount urine
Number of approximated MODERATE 4
amounts of urine
Laboratory Results
01/06/25 06:25
01/06/25 06:25
Physical Exam
-
General - well developed, well nourished, no acute distress
Chest - clear bilaterally
Mejía slightly pink urine
--- NOTE | 2025-01-06 11:06 | CM ---
Addendum entered by Lyubov Gilliam 01/06/25 15:22:
referral sent to [facility] pending response.
Original Note:
Patient seen at bedside with physician on [facility]. Patient pending therapy recommendations would like to go to SNF at [facility] if bed available and with authorization. CM will continue to follow for discharge planning needs.
Plan; SNF vs home with VN pending medical treatment plan
--- NOTE | 2025-01-06 11:23 | W.PN.HOSP.TC ---
Today's Communication/Plan
-
CBI as per urology
PLAN: timing of surgeries to be determined by urology and colorectal surgery, bladder biopsy results, and whether chemo will be required
anticoagulation when OK with urology
Assessment / Plan
Assessment / Plan
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
invasive colonic adenocarcinoma with presumed muscle invasive bladder/urothelial cancer (biopsies pending)--colon ca cause of chronic GI blood loss exacerbated by Eliquis (iron deficiency) with incidental finding of bladder ca found on staging CT
scan--urology took to OR s/p cystoscopy with biopsies --s/p 2 units pRBC and IV iron--holding Eliquis--apprec GI s/p EGD (essential WNL) and colonoscopy--PLAN: timing of surgeries to be determined by urology and colorectal surgery, bladder biopsy
results, and whether chemo will be required
Low B12 level--cont B12 supplements-
Nonischemic cardiomyopathy, heart failure reduced EF 35 to 40% May 20, 2023/endocarditis hx-- Continue Ivabradine 5 mg p.o. twice daily (patient's own med)--apprec cards-- ECHO NOW with improved EF to 50-55%--- resumed carvedilol 3.125 mg p.o.
twice daily and lisinopril 2.5 mg daily w holding parameters
Paroxysmal A-fib--Paroxysmal atrial tachycardia status post PVI December 2022--IV heparin on hold--will need to restart some type of anticoagulation once cleared by urology/CRS
Anxiety/Insomnia--Continue alprazolam 0.5 mg p.o. 4 times daily--home Ambien resumed at reduced dose 5 mg HS, 5mg HSPRN also available if scheduled dose insufficient--Low dose trazodone 12.5 mg HS started titrated up to 25 mg HS
overnight Unwitnessed fall 01/01/25--CT head noted no acute abn's
Hypothyroidism--Continue levothyroxine 25 mcg p.o. daily
HLD--Hold Zetia 10 mg daily
Bioprosthetic mitral valve replacement/Medtronic dual-chamber pacemaker 2016 secondary to heart block
DVT prophylaxis--SCDs
code status--FULL CODE--Medical proxy noted to be patient's close friend Promise, contact information listed in [employer]
Anticipated Discharge: > 48 hours
Subjective/Interval History
-
Date of Service: January 06, 2025
pt wants to go to SNF--CM explained needs reason to go or insurance will not pay--also cannot go to SNF if chemo needed
Objective Data
-
Labs:
Laboratory Results
01/06/25
06:25
WBC 11.2 H
Hgb 8.3 L
Hct 27.5 L
Plt Count 273
Sodium 139
Potassium 4.5
Chloride 109 H
Carbon Dioxide 23
BUN 23 H
Creatinine 0.7
Glucose 128 H
Calcium 9.7
Vital Signs:
max temp for 24 hours
01/05/25
23:00
Temp 97.8 F
Vital Signs
Temp Pulse Resp BP Pulse Ox
98.0 F 82 16 114/58 95
01/06/25 07:05 01/06/25 07:48 01/06/25 07:05 01/06/25 07:48 01/06/25 10:45
I&O
01/05/25 01/06/25 01/07/25
06:59 06:59 06:59
Intake Total 1070 / 1070 480 / 480
Output Total 1350 / 1350
Balance 1070 / 1070 -870 / -870
Review of Systems
-
All other systems: Reviewed and negative
Physical Exam
-
General: Well Developed, Well Nourished and No Apparent Distress
HEENT: Normocephalic and Atraumatic; Negative Oxygen
Respiratory: Clear to Auscultation; Negative Wheezes or Rhonchi
Cardiac: Regular Rhythm and S1/S2; Negative Murmur
GI: Soft, Nontender, Nondistended and Normal Bowel Sounds
Genito-urinary: Continuous Bladder Irrigation
Musculoskeletal: No Clubbing, No Cyanosis and No Edema
Skin: Warm
Neuro: Awake
Psych: Anxious
[2025-01-06] MEDS: NON-FORMULARY ITEM PO (20:10)
[2025-01-06] MEDS: DESYREL 25 MG PO (21:11)
[2025-01-06] MEDS: AMBIEN 5 MG PO (23:58)
[2025-01-07 00:10] VITALS: BP 116/54
[2025-01-07] MEDS: SYNTHROID 25 MCG PO (05:04)
[2025-01-07 05:12] VITALS: BP 120/58
[2025-01-07 06:00] VITALS: BMI 25.6
[2025-01-07 06:47] LABS: Hematocrit 27.4 % (37.0-47.0); Hemoglobin 7.8 g/dL (12.0-16.0); Mean Corp Hgb Conc. 28.5 g/dL (33.0-37.0); Mean Corpuscular Volume 74.9 fL (81.0-99.0); Platelet Count 242 10^3/uL (130-400); Red Cell Dist. Width 29.8 % (11.5-14.5)
[2025-01-07 06:58] LABS: Blood Urea Nitrogen 38 mg/dl (7-17); Calcium 9.2 mg/dl (8.4-10.2); Carbon Dioxide 25 mmol/L (22-30); Chloride 107 mmol/L (98-107); Estimated Creatinine Clearance 43 ml/min; Glucose 112 mg/dl (70-99); Magnesium 1.8 mg/dl (1.6-2.3); Potassium 4.0 mmol/L (3.5-5.1); Sodium 137 mmol/L (135-145); eGFR > 60.00
[2025-01-07 07:00] VITALS: BP 114/56
[2025-01-07] MEDS: VITAMIN B1 100 MG PO (08:01)
[2025-01-07] MEDS: XANAX 0.5 MG PO ×4 (08:01→21:39)
[2025-01-07] MEDS: FLORASTOR 250 MG PO (08:01)
[2025-01-07] MEDS: THERAGRAN 1 TABLET PO (08:01)
[2025-01-07] MEDS: B COMPLEX w/VITAMIN C 1 CAPLET PO (08:02)
[2025-01-07] MEDS: VITAMIN B-12 1000 MCG PO (08:03)
[2025-01-07] MEDS: NON-FORMULARY ITEM 5 MG PO ×2 (08:05→19:35)
[2025-01-07] MEDS: COREG 3.125 MG PO ×2 (08:05→19:35)
[2025-01-07] MEDS: ZESTRIL 2.5 MG PO (08:06)
--- NOTE | 2025-01-07 08:26 | W.PN.ONC2 ---
Today's Communication / Plan
-
follow for surgical pathology
close OP follow up will be arranged upon discharge
Impression
Impression
ascending colon mass s/p colonoscopy with biopsy diagnostic for invasive colonic adenocarcinoma, moderately differentiated, no loss MMR proteins
multiple bladder masses suspicious for primary urothelial cancer -s/p Transurethral resection of bladder tumor and Transurethral resection of right ureteral orifice 01/06
CT CAP no distant mets
iron deficiency anemia due to blood loss completed 5 doses ferrlicit
hx of pAF on eliquis
HF
bioprosthetic valve
Plan
Plan
If muscle invasive urothelial malignancy is confirmed on transurethral resection of bladder tumor then would proceed with 12 weeks of systemic therapy followed by restaging prior to proceeding with colorectal and urologic surgery
Subjective/Objective
Subjective
afebrile, no hypoxia or hypotension
denies pain or bleeding
Vital Signs:
Vital Signs
Temp Pulse Resp BP Pulse Ox
98.4 F 83 16 114/56 98
01/07/25 07:00 01/07/25 08:06 01/07/25 07:00 01/07/25 08:06 01/07/25 07:00
Lab Results:
Laboratory Data
WBC 12.3 10^3/uL (4.8-10.8) H 01/07/25 05:39
Hgb 7.8 g/dL (12.0-16.0) L 01/07/25 05:39
Plt Count 242 10^3/uL (130-400) 01/07/25 05:39
APTT 99.0 Sec (23.4-35.0) H 01/04/25 22:13
eGFR > 60.00 01/07/25 05:39
Physical Exam
HEENT: Moist Mucous Membranes; No Jaundice
Pulmonary: Other (unlabored)
GI: Soft and Other (Pollock with rust colored urine)
Extremities: Pulses Present
[2025-01-07 11:00] VITALS: BP 115/55
--- NOTE | 2025-01-07 12:35 | W.PN.HOSP.TC ---
Today's Communication/Plan
-
d/c planning
need to restart anticoagulation when OK with urology
Assessment / Plan
Assessment / Plan
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
invasive colonic adenocarcinoma with presumed muscle invasive bladder/urothelial cancer (biopsies pending)--colon ca cause of chronic GI blood loss exacerbated by Eliquis (iron deficiency) with incidental finding of bladder ca found on staging CT
scan--urology took to OR s/p cystoscopy with biopsies --s/p 2 units pRBC and IV iron--holding Eliquis--apprec GI s/p EGD (essential WNL) and colonoscopy--PLAN: after speaking with all parties: ideally 4 cycles of chemo for bladder ca (~100 days),
followed by definitive surgery for bladder and colon cancer
Low B12 level--cont B12 supplements
Nonischemic cardiomyopathy, heart failure reduced EF 35 to 40% May 20, 2023/endocarditis hx-- Continue Ivabradine 5 mg p.o. twice daily (patient's own med)--apprec cards-- ECHO NOW with improved EF to 50-55%--- resumed carvedilol 3.125 mg p.o.
twice daily and lisinopril 2.5 mg daily w holding parameters
Paroxysmal A-fib--Paroxysmal atrial tachycardia status post PVI December 2022--IV heparin on hold--will need to restart some type of anticoagulation once cleared by urology
Anxiety/Insomnia--Continue alprazolam 0.5 mg p.o. 4 times daily--home Ambien resumed at reduced dose 5 mg HS, 5mg HSPRN also available if scheduled dose insufficient--Low dose trazodone 12.5 mg HS started titrated up to 25 mg HS
overnight Unwitnessed fall 01/01/25--CT head noted no acute abn's--for SNF
Hypothyroidism--Continue levothyroxine 25 mcg p.o. daily
HLD--Hold Zetia 10 mg daily
Bioprosthetic mitral valve replacement/Medtronic dual-chamber pacemaker 2016 secondary to heart block
DVT prophylaxis--SCDs
code status--FULL CODE--Medical proxy noted to be patient's close friend Promise, contact information listed in [employer]
Anticipated Discharge: 24 - 48 hours
Subjective/Interval History
-
Date of Service: January 07, 2025
pt friend Promise at the bedside--pt very overwhelmed with plan of care, SNF, etc and I have answered the same questions daily for the last 4 days....
Objective Data
-
Labs:
Laboratory Results
01/07/25
05:39
WBC 12.3 H
Hgb 7.8 L
Hct 27.4 L
Plt Count 242
Sodium 137
Potassium 4.0
Chloride 107
Carbon Dioxide 25
BUN 38 H
Creatinine 0.9
Glucose 112 H
Calcium 9.2
Vital Signs:
max temp for 24 hours
01/07/25
00:10
Temp 98.7 F
Vital Signs
Temp Pulse Resp BP Pulse Ox
97.8 F 73 16 115/55 99
01/07/25 11:00 01/07/25 11:00 01/07/25 11:00 01/07/25 11:00 01/07/25 11:00
I&O
01/06/25 01/07/25 01/08/25
06:59 06:59 06:59
Intake Total 480 / 480 720 / 720 180 / 180
Output Total 1350 / 1350 1050 / 1050
Balance -870 / -870 -330 / -330 180 / 180
Review of Systems
-
All other systems: Reviewed and negative
Physical Exam
-
General: Well Developed, Well Nourished and No Apparent Distress
HEENT: Normocephalic and Atraumatic; Negative Oxygen
Respiratory: Clear to Auscultation; Negative Wheezes or Rhonchi
Cardiac: Regular Rhythm and S1/S2; Negative Murmur
GI: Soft, Nontender, Nondistended and Normal Bowel Sounds
Genito-urinary: Pollock
Musculoskeletal: No Clubbing, No Cyanosis and No Edema
Neuro: Awake and Alert
--- NOTE | 2025-01-07 14:26 | CM ---
CM following re: discharge planning.
Reviewed pt's chart, met with pt.
PT and OT have been recommending SNF level of care. Pt is aware and pt stated she prefers to do chemotherapy and pt stated she is not sure whether or not she can continue chemotherapy while in a SNF. CM to confirm pt's treatment plan with MD.
A referral to [facility] noted and pt is accepted for admissions based on bed availability on the day of discharge.
D/C plan: possible [facility] when medically stable.
CM will follow with discharge plan updates as hospitalization progresses
[2025-01-07 15:05] VITALS: BP 119/53
[2025-01-07] MEDS: DESYREL 25 MG PO (21:39)
[2025-01-07] MEDS: AMBIEN 5 MG PO (22:48)
[2025-01-07 23:09] VITALS: BP 115/60
[2025-01-08] VITALS (10 sets, daily range): BP systolic 96–120; BP diastolic 44–62; PULSE 81; BMI 25.1
[2025-01-08] MEDS: SYNTHROID 25 MCG PO (05:22)
[2025-01-08 06:45] LABS: Hematocrit 27.8 % (37.0-47.0); Hemoglobin 8.0 g/dL (12.0-16.0); Mean Corp Hgb Conc. 28.8 g/dL (33.0-37.0); Mean Corpuscular Volume 75.7 fL (81.0-99.0); Platelet Count 250 10^3/uL (130-400); Red Cell Dist. Width 30.5 % (11.5-14.5)
[2025-01-08] MEDS: B COMPLEX w/VITAMIN C 1 CAPLET PO (07:50)
[2025-01-08] MEDS: XANAX 0.5 MG PO ×4 (07:50→21:48)
[2025-01-08] MEDS: COREG 3.125 MG PO ×2 (07:51→19:34)
[2025-01-08] MEDS: NON-FORMULARY ITEM PO (07:52)
[2025-01-08] MEDS: VITAMIN B1 100 MG PO (07:52)
[2025-01-08] MEDS: FLORASTOR 250 MG PO (07:52)
[2025-01-08] MEDS: VITAMIN B-12 1000 MCG PO (07:52)
[2025-01-08] MEDS: THERAGRAN 1 TABLET PO (07:52)
[2025-01-08] MEDS: ZESTRIL PO (07:53)
--- NOTE | 2025-01-08 08:39 | W.PN.URO.CBU ---
Today's Communication / Plan
-
Trend hematuria, resume anticoagulation when urine clear
Outpatient follow up for pathology review and next steps
Outpatient medical oncology follow up
Assessment / Plan
-
74F admitted with severe anemia and GI bleed s/p biopsy for likely malignant colon tumor
Found to have multiple large bladder tumors on staging CT concerning for urothelial carcinoma
pathology of colon showing colon adenocarcinoma primary
- s/p transurethral resection of bladder tumor 01/05/25
- Appearance consistent with urothelial carcinoma, likely muscle invasive and invasive into the R intramural ureter
- Extensive bladder involvement with greater than 80% of the bladder mucosa involved with bulky papillary tumor
- Tumor is not endoscopically resectable and a large volume of unresected tumor remains
- Minimal hematuria after catheter removal though some still persistent
- Hold anticoagulation today for chemo port placement, can resume once hematuria resolved
- [place] management will likely include neoadjuvant chemotherapy followed by radical cystectomy/ileal conduit, combined case with colorectal for R colectomy
- If hematuria/persistent anemia issues preclude outpatient chemotherapy, surgery may need to be done sooner or prior to discharge
Outpatient follow up for pathology review and next steps
Diagnosis
-
Date of Service: January 08, 2025
-
Patient Diagnosis:
Bladder tumor
Colon tumor
Severe anemia
GI bleed
Post Op Day:
Subjective
-
Voiding without issue since catheter removal
Hematuria has been mild though patient states it is still somewhat pink
Objective
-
Vital Signs
Temp Pulse Resp BP Pulse Ox
97.8 F 82 12 102/52 99
01/08/25 07:00 01/08/25 07:53 01/08/25 07:00 01/08/25 07:53 01/08/25 07:00
Intake and Output
01/07/25 01/08/25 01/09/25
06:59 06:59 06:59
Intake Total 720 / 720 840 / 840
Output Total 1050 / 1050 900 / 900
Balance -330 / -330 -60 / -60
Intake:
Oral fluids 720 / 720 840 / 840
Output:
Urine, Pollock 1050 / 1050 700 / 700
Urine, Voided 200 / 200
Other:
Number of approximated MODERATE 1
amounts of urine
Number of approximated LARGE 1
amounts of urine
Laboratory Results
01/08/25 06:01
Physical Exam
-
General - well developed, well nourished, no acute distress
Chest - clear
Abdomen - soft, non-tender
[2025-01-08 09:08] LABS: Blood Urea Nitrogen 40 mg/dl (7-17); Calcium 9.5 mg/dl (8.4-10.2); Carbon Dioxide 25 mmol/L (22-30); Chloride 107 mmol/L (98-107); Estimated Creatinine Clearance 38 ml/min; Glucose 135 mg/dl (70-99); Magnesium 1.8 mg/dl (1.6-2.3); Potassium 4.2 mmol/L (3.5-5.1); Sodium 137 mmol/L (135-145); eGFR > 60.00
--- NOTE | 2025-01-08 09:08 | W.PN.CRS1 ---
Today's Communication / Plan
-
port today
Assessment/Plan
-
74-year-old female with PMH of NICM (EF 35-40%), history of endocarditis, MVR 2015, complete heart block s/p PPM, paroxysmal A-fib/A. tach s/p ablation, HTN, HLD, hypothyroidism, SBO x 2 (first was 2001 treated nonoperatively, second was 2007
associated with her appendectomy) who presents after developing worsening dyspnea with exertion over the last 2 to 3 months and routine blood work showing anemia. In the ED, Hb was 5.7 and received PRBC x 2. She underwent EGD on 01/01 showed
submucosal esophageal nodule and duodenal polyps. The colonoscopy 01/01 showed diverticulosis extending into the transverse colon, 3 ascending colon polyps, 2 rectal polyps, a medium sized mass on the ileocecal valve that was biopsied and
'bulbousness' in the rectum. Prior to this admission, she had never had a colonoscopy
Staging CT CAP: without concern for metastatic disease; large intraluminal masses in the bladder, multiple uterine leiomyoma; small bubble of extraluminal air adjacent to third portion of duodenum, likely due to recent duodenal biopsy
POD 3 cystoscopy with biopsy
AFVSS
WBC 10.7 from 12.3, Hb 8.0 from 7.8, Cr 0.9
�Bladder tumor seen on staging CT; felt to be urothelial carcinoma, likely muscle invasive
-Path pending from cystoscopy biopsy
�Appreciate urology; hold AC until hematuria clears; will need neoadjuvant chemo followed by radical cystectomy
�Ileocecal mass; biopsy showing colon adenocarcinoma
-CTCAP no evidence of mets
-CEA 1.34
-Appreciate oncology: plan for melissa-adjuvant chemo followed by simultaneous colon and bladder resection
-Will place port today
-Ok to restart AC tomorrow from point of view of port placement, but will need clearance from urology
�Fibroid uterus; d/w Dr. Abdul, will need outpatient follow-up to discuss possible hysterectomy at time of surgery
� Appreciate hospitalist
� Regarding medical proxy, patient made it clear that she does not want her sister informed of her admission or of her diagnoses; if she requires a medical proxy, she would prefer this to be her friend Promise Johns at [phone]
Subjective Data
Subjective Data
Date of Service: January 08, 2025
Doing well, no complaints. Voiding
Objective Data
-
Vital Signs
Temp Pulse Resp BP Pulse Ox
97.8 F 82 12 102/52 99
01/08/25 07:00 01/08/25 07:53 01/08/25 07:00 01/08/25 07:53 01/08/25 07:00
Intake & Output
01/07/25 01/08/25 01/09/25
06:59 06:59 06:59
Intake Total 720 / 720 840 / 840
Output Total 1050 / 1050 900 / 900
Balance -330 / -330 -60 / -60
Intake:
Oral fluids 720 / 720 840 / 840
Output:
Urine, Pollock 1050 / 1050 700 / 700
Urine, Voided 200 / 200
Other:
Number of approximated MODERATE 1
amounts of urine
Number of approximated LARGE 1
amounts of urine
Lab Results
01/08/25 06:01
Physical Exam
-
General: No Acute Distress and AOx3
HEENT: Grossly Normal
Abdomen: Soft, Non Distended, Non Tender, No Guarding and No Rebound
Skin: Warm and Dry
--- NOTE | 2025-01-08 09:40 | W.PN.HOSP.TC ---
Addendum entered and electronically signed by Medardo Weber MD 01/08/25 15:34:
I personally reviewed and evaluated this patient with the resident. I agree with above unless if otherwise stated below.
I personally reviewed labs and imaging data governance consultant notes case management note
Addendum entered and electronically signed by Medardo Weber MD 01/08/25 15:29:
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
Outpatient oncology urology colorectal surgery follow-up
Plan for outpatient chemotherapy
PT/OT evaluated plan for rehab
Per urology okay to resume with
S/p mediport placed today by colorectal surgery
B12 insufficiency
Continue repletion
Hypothyroidism
Continue levothyroxine
Bioprosthetic mitral valve replacement
Medtronic dual-chamber pacemaker
For SNF
Original Note:
Today's Communication/Plan
-
Plan reviewed with attending
Restart eilquis
SNF
Assessment / Plan
Assessment / Plan
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
invasive colonic adenocarcinoma with presumed muscle invasive bladder/urothelial cancer (biopsies pending)--colon ca cause of chronic GI blood loss exacerbated by Eliquis (iron deficiency) with incidental finding of bladder ca found on staging CT
scan--urology took to OR s/p cystoscopy with biopsies --s/p 2 units pRBC and IV iron--holding Eliquis--apprec GI s/p EGD (essential WNL) and colonoscopy--PLAN: after speaking with all parties: ideally 4 cycles of chemo for bladder ca (~100 days),
followed by definitive surgery for bladder and colon cancer
Resume eliquis s/p port placement today. Plan to go to acute rehab prior to commencement of chemotherapy.
Low B12 level--cont B12 supplements
Nonischemic cardiomyopathy, heart failure reduced EF 35 to 40% May 20, 2023/endocarditis hx-- Continue Ivabradine 5 mg p.o. twice daily (patient's own med)--apprec cards-- ECHO NOW with improved EF to 50-55%--- resumed carvedilol 3.125 mg p.o.
twice daily and lisinopril 2.5 mg daily w holding parameters
Paroxysmal A-fib--Paroxysmal atrial tachycardia status post PVI December 2022--IV heparin on hold--restart anticoagulation, cleared by urology
Anxiety/Insomnia--Continue alprazolam 0.5 mg p.o. 4 times daily--home Ambien resumed at reduced dose 5 mg HS, 5mg HSPRN also available if scheduled dose insufficient--Low dose trazodone 12.5 mg HS started titrated up to 25 mg HS
overnight Unwitnessed fall 01/01/25--CT head noted no acute abn's--for SNF
Hypothyroidism--Continue levothyroxine 25 mcg p.o. daily
HLD--Hold Zetia 10 mg daily
Bioprosthetic mitral valve replacement/Medtronic dual-chamber pacemaker 2016 secondary to heart block
DVT prophylaxis--SCDs
code status--FULL CODE--Medical proxy noted to be patient's close friend Promise, contact information listed in [place]
Anticipated Discharge: Today
Subjective/Interval History
-
Date of Service: January 08, 2025
Pt reports feeling well with mild soreness around port placement. Denies LE swelling, abdominal pain, hematuria.
Objective Data
-
Labs:
Laboratory Results
01/08/25 01/08/25 01/08/25
06:01 08:19 09:17
WBC 10.7
Hgb 8.0 L
Hct 27.8 L
Plt Count 250
PT Pending
INR Pending
APTT Pending
Sodium Cancelled 137
Potassium Cancelled 4.2
Chloride Cancelled 107
Carbon Dioxide Cancelled 25
BUN Cancelled 40 H
Creatinine Cancelled 0.9
Glucose Cancelled 135 H
Calcium Cancelled 9.5
Vital Signs:
Vital Signs
Temp Pulse Resp BP Pulse Ox
97.8 F 82 12 102/52 99
01/08/25 07:00 01/08/25 07:53 01/08/25 07:00 01/08/25 07:53 01/08/25 07:00
I&O
01/07/25 01/08/25 01/09/25
06:59 06:59 06:59
Intake Total 720 / 720 840 / 840
Output Total 1050 / 1050 900 / 900
Balance -330 / -330 -60 / -60
Review of Systems
-
History Source: Patient
All other systems: Reviewed and negative
Physical Exam
-
General: No Apparent Distress and Comfortable
HEENT: Normocephalic, Atraumatic, Moist Mucous Membranes, Nose Appears Normal and Ears Appear Normal
Respiratory: Clear to Auscultation and Non Labored Respirations
Cardiac: Regular Rhythm and S1/S2
GI: Soft, Nontender and Nondistended
Genito-urinary: Clear Urine
Musculoskeletal: No Edema
Skin: Warm, Dry and Other (well healed sternal scar and abdominal scar)
Neuro: AO x 3 and Nonfocal/Grossly Intact
Psych: Calm
--- NOTE | 2025-01-08 10:19 | CM ---
Addendum entered by Lyubov Gilliam 01/08/25 16:06:
Dr Marie reviewed with CM; options. Physician continues to consider discharge plan and will confirm tomorrow. CM will review IMM tomorrow with patient.
Addendum entered by Lyubov Gilliam 01/08/25 15:39:
Patient accepted for transfer to [facility] tomorrow afternoon. Patient will need ambulance and please call report to [phone]/fax [phone]. CM will complete transportation forms and provide IMM to patient.
Addendum entered by Lyubov Gilliam 01/08/25 14:14:
CM met with patient and friends; Delia Virgen and reviewed plan to go to SNF; [facility] pending bed availability. Patient aware that SNF cannot accept patient while on Chemotherapy and patient has new port as of today. Physician to see patient and CM
will continue to follow for discharge planning needs.
Plan; SNF; [facility] for short term
Original Note:
Patient out of room at procedure. CM will return to complete plan; CM will continue to follow for discharge planning needs.
Plan; SNF
--- NOTE | 2025-01-08 11:11 | W.IMMPOSTOP ---
Surgical Immed Post Op Note
-
Primary Surgeon: Donny Todd MD
Assisting Surgeon: None
Pre-op Diagnosis: Bladder cancer, colon cancer
Post-op Diagnosis: Bladder cancer, colon cancer
Procedure Performed: Mediport insertion
Anesthesia Type: Sedation with local
Specimen / Cultures: None
Estimated Blood Loss: 10 mL
Complications: None
Operative Findings: Accessed right subclavian vein on first attempt; tip of catheter at cavoatrial junction seen on fluoroscopy; after securing port to chest wall, was able to aspirate blood with easy flush
--- NOTE | 2025-01-08 11:14 | OR.RPT ---
Operative Report
Operative Report
DATE OF OPERATION: 01/08/2025
SURGEON: Donny Todd MD
PREOPERATIVE DIAGNOSIS: Bladder cancer, colon cancer
POSTOPERATIVE DIAGNOSIS: Bladder cancer, colon cancer
OPERATION: Right subclavian Mediport insertion
ASSISTANTS:
1. None
ANESTHESIA: Sedation with local
ESTIMATED BLOOD LOSS: 10 mL
FINDINGS:
1. After placement, the tip of port catheter visualized at level of the cavoatrial junction on fluoroscopy
2. Once sutured in position, port tested with Caldera needle and there was good withdrawal of blood and instillation of heparinized saline without resistance
SPECIMENS: None
DRAINS: None
COMPLICATIONS: No immediate complications.
INDICATIONS: The patient is a 74-year-old female with recently diagnosed ileocecal valve colon cancer as well as bladder cancer that was unable to be resected transurethrally. Infusional chemotherapy was recommended. Therefore, I recommended port
placement. The operation was discussed with the patient in detail including risks and benefits. Risks discussed included, but are not limited to, bleeding, infection, pneumothorax, post-operative malposition or movement of catheter, need for second
surgery, DVT/PE, and anesthetic risks. The patient understood and agreed to proceed. The consent was signed and placed in the chart.
PROCEDURE: Patient was taken to the operating room and placed on the operating table in supine position. Sequential compression devices were placed bilaterally. Sedation was commenced without complication. Bilateral arms were tucked and the head
was tilted toward the left. The right neck and chest wall area were prepped and draped in a sterile fashion. A time-out was then performed verifying the correct patient, procedure, operative site, positioning, and special equipment.
The patient was placed in Trendelenburg position. I confirmed her anatomy with ultrasound. Her right subclavian vein was easily accessible and nicely dilated. 10mL of local anesthetic consisting of 1% lidocaine with epinephrine was used to numb
the skin and soft tissue near the angle of the right clavicle. Using bony landmarks as a guide, I passed the needle with 10mL syringe under the right clavicle in the direction of the sternal notch while simultaneously aspirating. On the first pass,
good venous return was noted indicating that I had accessed the right subclavian vein. Under fluoroscopic guidance, a guidewire was passed through the needle into the patient down to the superior vena cava. This went smoothly.
The needle was removed over the guidewire and a skin opening was enlarged with an 11 blade scalpel. Next, I advanced the dilator and peel-away sheath together over the guidewire into the patient. This went smoothly as well. Next, the guidewire and
inner dilator were removed leaving the outer sheath in place. I advanced the white tubing through the outer sheath into the patient under fluoroscopic guidance to the superior vena cava near the right atrium. Next, the outer sheath was peeled away
while maintaining the white tubing in place. The location of the catheter tip was confirmed on fluoroscopy.
I injected more 1% lidocaine with epinephrine into the planned subcutaneous port pocket. Using a 15 blade scalpel, I made a 4cm incision over the chest wall. A subcutaneous pocket was created inferiorly to the incision with a combination of Bovie
electrocautery and blunt dissection. There was good hemostasis. The white tubing was connected to the tunneling device and brought through a newly created tunnel to the pocket area, taking care to avoid kinking of the tube. I confirmed with
fluoroscopy that the tip was still at the cavoatrial junction after this manipulation. The white tubing was trimmed, connected to the the port reservoir and secured with the locking mechanism. The port reservoir was accessed with good venous return
and flushed with heparinized saline. One last round of fluoroscopy was performed. The tip of the white tubing was at the level of the cavoatrial junction and there was no kink in the tubing.
The reservoir was secured to the chest wall with two 3-0 Prolene stitches. The port was accessed once more with the Caldera needle and heparinized saline. The port withdrew and flushed easily. The subcutaneous layer was closed with deep dermal
interrupted 3-0 Vicryl and the skin was closed with a running subcuticular 4-0 Vicryl. The remaining 1% lidocaine was injected around the subcutaneous pocket, port incision and stab incision. Total amount of local used was 20mL. Dermabond was used
to dress the port incision and stab incision.
At this point, the procedure was complete. All sponge, needle and instrument counts were correct. The patient tolerated the procedure well and was transferred to the recovery room in stable condition. A portable chest x-ray was ordered in recovery
to confirm port position and rule-out pneumothorax.
DICTATED BY: Donny Todd MD
--- NOTE | 2025-01-08 12:00 | W.PN.ONC2 ---
Today's Communication / Plan
-
discharge planning for SNF
Close follow up with medical oncology
Impression
Impression
ascending colon mass s/p colonoscopy with biopsy diagnostic for invasive colonic adenocarcinoma, moderately differentiated, no loss MMR proteins
multiple bladder masses suspicious for primary urothelial cancer -s/p Transurethral resection of bladder tumor and Transurethral resection of right ureteral orifice 01/06
CT CAP no distant mets
iron deficiency anemia due to blood loss completed 5 doses ferrlicit
hx of pAF on eliquis
HF
bioprosthetic valve
Plan
Plan
If muscle invasive urothelial malignancy is confirmed on transurethral resection of bladder tumor then would proceed with 12 weeks of systemic therapy followed by restaging prior to proceeding with colorectal and urologic surgery
Subjective/Objective
Subjective
afebrile, no hypoxia or hypotension
no new complaints
Vital Signs:
Vital Signs
Temp Pulse Resp BP Pulse Ox
97.1 F 77 10 120/52 99
01/08/25 11:13 01/08/25 11:15 01/08/25 11:15 01/08/25 11:15 01/08/25 11:25
Lab Results:
Laboratory Data
WBC 10.7 10^3/uL (4.8-10.8) 01/08/25 06:01
Hgb 8.0 g/dL (12.0-16.0) L 01/08/25 06:01
Plt Count 250 10^3/uL (130-400) 01/08/25 06:01
APTT 99.0 Sec (23.4-35.0) H 01/04/25 22:13
eGFR > 60.00 01/08/25 08:19
Physical Exam
new port site C/D/I
HEENT: No Jaundice
Pulmonary: Other (unlabored)
GI: Soft
Extremities: Pulses Present
Neuro: Non Focal
--- NOTE | 2025-01-08 12:34 | PTCARENOTE ---
Pt arrived back to room s/p port insertion. Right upper chest with 2 incisions MEDICAL PATHOLOGIST with glue. Pt oriented to room and call ovalle. Bed locked and in lowest position. Care ongoing.
[2025-01-08 15:01] LABS: INR 0.98; PT 13.3 Sec (11.4-14.6)
[2025-01-08 15:02] LABS: APTT 29.3 Sec (23.4-35.0)
[2025-01-08] MEDS: NON-FORMULARY ITEM 5 MG PO (19:35)
[2025-01-08] MEDS: DESYREL 25 MG PO (21:45)
[2025-01-08] MEDS: AMBIEN 5 MG PO (21:55)
[2025-01-09 03:00] VITALS: BP 108/55
[2025-01-09 05:13] VITALS: BMI 25.1
[2025-01-09] MEDS: SYNTHROID 25 MCG PO (05:25)
[2025-01-09 06:55] VITALS: BP 129/61
[2025-01-09] MEDS: FLORASTOR 250 MG PO (09:41)
[2025-01-09] MEDS: NON-FORMULARY ITEM 5 MG PO (09:41)
[2025-01-09] MEDS: COREG 3.125 MG PO (09:42)
[2025-01-09] MEDS: THERAGRAN 1 TABLET PO (09:43)
[2025-01-09] MEDS: ZESTRIL 2.5 MG PO (09:44)
[2025-01-09] MEDS: VITAMIN B1 100 MG PO (09:44)
[2025-01-09] MEDS: VITAMIN B-12 1000 MCG PO (09:44)
[2025-01-09] MEDS: B COMPLEX w/VITAMIN C 1 CAPLET PO (09:45)
[2025-01-09] MEDS: XANAX 0.5 MG PO ×2 (09:45→12:59)
--- NOTE | 2025-01-09 09:57 | W.PN.URO.CBU ---
Today's Communication / Plan
-
ok for d/c
Assessment / Plan
-
74F admitted with severe anemia and GI bleed s/p biopsy for likely malignant colon tumor
Found to have multiple large bladder tumors on staging CT concerning for urothelial carcinoma
pathology of colon showing colon adenocarcinoma primary
- s/p transurethral resection of bladder tumor 01/05/25
- Appearance consistent with urothelial carcinoma, likely muscle invasive and invasive into the R intramural ureter
- Extensive bladder involvement with greater than 80% of the bladder mucosa involved with bulky papillary tumor
- Tumor is not endoscopically resectable and a large volume of unresected tumor remains
- Minimal hematuria after catheter removal though some still persistent
- Hold anticoagulation today for chemo port placement, can resume once hematuria resolved
- [place] management will likely include neoadjuvant chemotherapy followed by radical cystectomy/ileal conduit, combined case with colorectal for R colectomy
- If hematuria/persistent anemia issues preclude outpatient chemotherapy, surgery may need to be done sooner or prior to discharge
Outpatient follow up for pathology review and next steps
Diagnosis
-
Date of Service: January 09, 2025
-
Patient Diagnosis:
Post Op Day:
Patient Diagnosis:
Bladder tumor
Colon tumor
Severe anemia
GI bleed
Post Op Day:
Subjective
-
no hematuria voiding well
Objective
-
Vital Signs
Temp Pulse Resp BP Pulse Ox
98.1 F 80 16 129/61 97
01/09/25 06:55 01/09/25 06:55 01/09/25 06:55 01/09/25 06:55 01/09/25 06:55
Intake and Output
01/08/25 01/09/25 01/10/25
06:59 06:59 06:59
Intake Total 840 / 840 590 / 590
Output Total 900 / 900 50 / 50
Balance -60 / -60 540 / 540
Intake:
Oral fluids 840 / 840 540 / 540
IV fluids (Total) 50 / 50
Normasal\\ 50 / 50
Output:
Urine, Pollock 700 / 700
Urine, Voided 200 / 200 50 / 50
Other:
Number of approximated MODERATE 1
amounts of urine
Number of approximated LARGE 1
amounts of urine
Review of Systems
-
: No Symptoms
Physical Exam
-
General - well developed, well nourished, no acute distress
Chest - clear bilaterally
Abdomen - soft, non-tender, positive bowel sounds, no CVAT, no incisional pain or distention
Genitalia - normal
Rectal - normal
Skin - warm & dry with no rash
Neuro - AOx3, no motor deficits
Extremities - no clubbing, no cyanosis, no edema
Incision - clean, dry
Dressing - clean, dry, intact
Counseling
-
ok form d/c
Care Review
Data Reviewed
Discussed with: Hospitalist
--- NOTE | 2025-01-09 10:42 | W.PN.HOSP.TC ---
Today's Communication/Plan
-
d/c
Assessment / Plan
Assessment / Plan
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
invasive colonic adenocarcinoma with presumed muscle invasive bladder/urothelial cancer (biopsies pending)--colon ca cause of chronic GI blood loss exacerbated by Eliquis (iron deficiency) with incidental finding of bladder ca found on staging CT
scan--urology took to OR s/p cystoscopy with biopsies --s/p 2 units pRBC and IV iron--holding Eliquis--apprec GI s/p EGD (essential WNL) and colonoscopy--PLAN: after speaking with all parties: ideally 4 cycles of chemo for bladder ca (~100 days),
followed by definitive surgery for bladder and colon cancer --Eliquis starting today
Low B12 level--cont B12 supplements
Nonischemic cardiomyopathy, heart failure reduced EF 35 to 40% May 20, 2023/endocarditis hx-- Continue Ivabradine 5 mg p.o. twice daily (patient's own med)--apprec cards-- ECHO NOW with improved EF to 50-55%--- resumed carvedilol 3.125 mg p.o.
twice daily and lisinopril 2.5 mg daily w holding parameters
Paroxysmal A-fib--Paroxysmal atrial tachycardia status post PVI December 2022--IV heparin on hold--restart anticoagulation
Anxiety/Insomnia--Continue alprazolam 0.5 mg p.o. 4 times daily--home Ambien resumed at reduced dose 5 mg HS, 5mg HSPRN also available if scheduled dose insufficient--Low dose trazodone 12.5 mg HS started titrated up to 25 mg HS
overnight Unwitnessed fall 01/01/25--CT head noted no acute abn's--for SNF
Hypothyroidism--Continue levothyroxine 25 mcg p.o. daily
HLD--Hold Zetia 10 mg daily
Bioprosthetic mitral valve replacement/Medtronic dual-chamber pacemaker 2015 secondary to heart block
DVT prophylaxis--SCDs
code status--FULL CODE--Medical proxy noted to be patient's close friend Promise, contact information listed in [employer]
Anticipated Discharge: Today
Subjective/Interval History
-
Date of Service: January 09, 2025
pt ready for d/c
Objective Data
-
Labs:
Laboratory Results
01/09/25
06:00
WBC Pending
Hgb Pending
Hct Pending
Plt Count Pending
Sodium Pending
Potassium Pending
Chloride Pending
Carbon Dioxide Pending
BUN Pending
Creatinine Pending
Glucose Pending
Calcium Pending
Vital Signs:
max temp for 24 hours
01/09/25
03:00
Temp 98.0 F
Vital Signs
Temp Pulse Resp BP Pulse Ox
98.1 F 80 16 129/61 97
01/09/25 06:55 01/09/25 06:55 01/09/25 06:55 01/09/25 06:55 01/09/25 06:55
I&O
01/08/25 01/09/25 01/10/25
06:59 06:59 06:59
Intake Total 840 / 840 590 / 590
Output Total 900 / 900 50 / 50
Balance -60 / -60 540 / 540
Review of Systems
-
All other systems: Reviewed and negative
Physical Exam
-
General: Well Developed, Well Nourished and No Apparent Distress
HEENT: Normocephalic and Atraumatic
Respiratory: Clear to Auscultation; Negative Wheezes or Rhonchi
Cardiac: Regular Rhythm and S1/S2; Negative Murmur
GI: Soft, Nontender, Nondistended and Normal Bowel Sounds
Musculoskeletal: No Clubbing, No Cyanosis and No Edema
Skin: Warm
Neuro: Awake
Psych: Calm
[2025-01-09 11:05] VITALS: BP 106/54
--- NOTE | 2025-01-09 11:37 | CM ---
Pt for dc today to [facility]
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
Report # [phone] ext [phone]
[2025-01-09] MEDS: FLUZONE HIGH-DOSE 2025-26 0.5 ML IM (13:00)
[2025-01-09 14:02] LABS: Hematocrit 29.5 % (37.0-47.0); Hemoglobin 8.8 g/dL (12.0-16.0); Mean Corp Hgb Conc. 29.8 g/dL (33.0-37.0); Mean Corpuscular Volume 77.4 fL (81.0-99.0); Platelet Count 264 10^3/uL (130-400); Red Cell Dist. Width 31.4 % (11.5-14.5)
[2025-01-09 14:06] LABS: Blood Urea Nitrogen 41 mg/dl (7-17); Calcium 9.6 mg/dl (8.4-10.2); Carbon Dioxide 25 mmol/L (22-30); Chloride 105 mmol/L (98-107); Estimated Creatinine Clearance 43 ml/min; Glucose 181 mg/dl (70-99); Magnesium 2.0 mg/dl (1.6-2.3); Potassium 4.2 mmol/L (3.5-5.1); Sodium 136 mmol/L (135-145); eGFR > 60.00
--- NOTE | 2025-01-09 17:27 | W.DCSUMMARY ---
Discharge Summary
Discharge Data
Date of Admission: 12/30/24
Date of Discharge: 01/09/25
-
Pending Results: Yes
Additional Pending Results:
bladder biopsy results
Hospital Course
Primary care physician : Mina Quintana
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
Chronic Discharge diagnosis : Nonischemic cardiomyopathy with reduced ejection fraction, paroxysmal atrial fibrillation, anxiety/insomnia, hypothyroidism, hyperlipidemia, bioprosthetic mitral valve replacement with dual-chamber pacemaker secondary
to heart block in the past
Hospital Course : Patient was a 74-year-old female who had routine blood work in preparation for her yearly PCP visit. She was called due to a low hemoglobin. She did report feeling winded with exertion and activity over the past 2 to 3 months.
She also reports a 'leaky mitral valve'. She denies lightheadedness, headache, fever, chills, chest pain, abdominal pain, nausea, vomiting, diarrhea, black stools. She says she does have hemorrhoidal bleeding off and on. She also had 1 day of
hematuria that went away. She denied any dysuria or frequency or flank pain. Patient was found to have a hemoglobin of 5.7 and was admitted.
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 Patient was admitted and seen in consultation by GI for workup of anemia. She underwent EGD and colonoscopy (full results are listed below) but was
found to have what was thought to be 2 primary cancers. Colon cancer which has been deemed invasive by pathology on biopsy and urothelial cancer (detected by staging CAT scans) which biopsies are still pending at this time. It is presumed to be
invasive. Urology, colorectal surgery, hematology were all consulted. Her Eliquis was held for the procedures. Patient did receive 2 units of packed red blood cells for anemia due to chronic blood loss and IV iron. After speaking with all
specialists, plan will be 4 cycles (approximately 100 days or so) of chemotherapy for invasive bladder cancer and port was placed this admission; followed by definitive surgery for bladder and colon cancer. Eliquis has been restarted at discharge.
Urology is informing us that based on the procedure that was done, it would not be uncommon for her to bleed 7 to 10 days after the procedure as the 'scabs' that are in there will start to fall off. If that happens, they recommend stopping the
Eliquis and following up with urology.
Problem #2: Vitamin B12 deficiency. Patient's level was found to be 299 with a low normal of 239. She was started on B12 replacement therapy.
Problem #3: All other medical issues. These include Nonischemic cardiomyopathy with reduced ejection fraction, paroxysmal atrial fibrillation, anxiety/insomnia, hypothyroidism, hyperlipidemia, bioprosthetic mitral valve replacement with
dual-chamber pacemaker secondary to heart block in the past. These medical issues were stable during her hospitalization. Medications were continued as able. Patient was very anxious during her hospitalization so much so that her anxiety
precluded her from really listening and hearing with the medical specialists were saying.
Patient was seen in consultation by physical and Occupational Therapy. They are recommending a brief stay at [facility]. She is aware that she cannot undergo chemotherapy while she is at the facility rehabbing. Patient is stable
for discharge to [facility] at this time. If there are any questions regarding this dictation or her hospital stay, please do not hesitate to call. Our office number is [phone].
Time for discharge 38 minutes.
Important imaging findings :
CT SCANS
IMPRESSION:
CHEST:
1. Mild cardiomegaly with moderate enlargement of the left atrial and ventricular chambers.
2. Previous mitral valve replacement.
3. Left-sided cardiac pacemaker in place.
4. Minimal bilateral pleural effusions.
5. Mild scarring in both lower lungs.
ABDOMEN and PELVIS:
1. Large polypoid intraluminal masses in the URINARY BLADDER suggesting EXTENSIVE UROTHELIAL CARCINOMA. A large amount of intraluminal blood clot is a less likely diagnostic possibility given that the polypoid masses appear to demonstrate
enhancement.
2. 2.5 cm mucosal-based mass in the PROXIMAL ASCENDING COLON which was recently biopsied and is likely COLON ADENOCARCINOMA.
3. Multiple uterine leiomyoma.
4. Small bubbles of extraluminal air adjacent to the 3rd portion of the duodenum (probably secondary to recent duodenal biopsy).
5. Severe discogenic degenerative disease at L5/S1.
6. Severe bilateral facet joint arthrosis at L4/L5 with associated grade 1 anterolisthesis.
Procedure findings :
COLONOSCOPY Impression:
- Diverticulosis in the sigmoid colon, in the transverse colon and
in the descending colon.
- Malignant tumor at the ileocecal valve. Biopsied. This is cause
of AMINA and rectal bleeding.
- Three 1 to 3 mm polyps in the ascending colon, in the transverse
colon and in the rectum, removed with a F[place] cold forceps. Resected
and retrieved.
- Two 4 to 6 mm polyps in the rectum and in the sigmoid colon,
removed with a cold snare. Resected and retrieved.
- Hemorrhoids.
EGD Impression:
- Normal esophagus.
- Submucosal nodule found in the esophagus. Biopsied.
- Normal stomach.
- Flattened mucosa was found in the duodenum, rule out celiac
disease. Biopsied.
- Four duodenal polyps. Biopsied.
- A single duodenal polyp. Biopsied. Tattooed.
CYSTOSCOPY INTRAOPERATIVE FINDINGS:
1. Cystourethroscopy demonstrated extensive papillary tumor
involvement of nearly the entire bladder wall. Estimated greater
than 85% of the bladder mucosa was covered in papillary tumors,
including multiple large and bulky tumors. The largest of these was
located at the right bladder wall involving the right ureteral
orifice, which was completely encased.
2. Transurethral resection of greater than 5 cm tumor diameter from
the right bladder wall was performed with extensive time required
for complete removal of the tumor down to the level of the bladder
wall. Tumor appeared to be invasive to the deeper layers of the
bladder though, there was no evidence of obvious invasion
completely through the bladder wall.
3. Majority of right wall tumor was able to be resected with no
evidence of bladder wall perforation.
4. Right ureteral orifice was uncovered from the overlying tumor,
though there was visible papillary tumor within the orifice which
persisted despite resection through nearly the complete intramural
ureter.
5. Significant volume of tumor remained at case conclusion
affecting the majority of the bladder surface.
Discharge Plan
-
Patient Disposition: Retirement/SNF
Discharge Diagnosis/Procedures: Invasive ileocecal valve adenocarcinoma, bladder cancer presumed invasive, vitamin B12 deficiency, nonischemic cardiomyopathy with reduced ejection fraction without exacerbation, paroxysmal atrial fibrillation,
anxiety/insomnia, hypothyroidism, hyperlipidemia, bioprosthetic mitral valve replacement
Condition: Fair
Diet: As tolerated
Activity: As tolerated
Driving Restrictions: As prior to admission
Bathing Restrictions: None
Activity Restrictions/Additional Instructions:
You will need to follow-up in the office of Dr. Donny Todd, Dr. Onel Marie, and Dr. Roxanne Gilliam--- please call for appointments while you are at the rehab facility
Referrals:
Mina Quintana MD [Family Provider, Family Practice] - in less than 1 week
Roxanne Gilliam DO [Active, Hematology / Oncology]
Referral Note: as instructed
Onel Marie MD [Active, Urology]
Referral Note: as instructed
Donny Todd MD [Active, ColoRectal]
Referral Note: as instructed
Additional Discharge Medication Instructions: Please be aware that often a week after surgery on bladder cancers, the scabs fall off and they will rebleed. If she has any blood in her urine, please hold eliquis and follow up with urologist.
Can begin eliquis 01/09/25 per colorectal surgeon.
Prescriptions:
New
cyanocobalamin (vitamin B-12) [Vitamin B-12] 500 mcg Tablet
1,000 mcg PO DAILY 10 Days Qty: 20 0RF
alprazolam 0.5 mg Tablet
0.5 mg PO QID Qty: 10 0RF
Continued
zolpidem 10 MG tablet
10 mg PO HSPRN PRN (Reason: sleep)
carvedilol 3.125 MG tablet
3.125 mg PO BID Qty: 60 3RF
furosemide 20 MG tablet
20 mg PO SUWE
lisinopril 2.5 MG tablet
2.5 mg PO DAILY
atorvastatin 40 mg Tablet
40 mg PO DAILY
Eliquis 5 mg Tablet
5 mg PO BID
Cbd Gummies
1 tab PO HS
thiamine HCl (vitamin B1) [Vitamin B-1] 100 mg Tablet
100 mg PO DAILY
Saccharomyces boulardii [Probiotic (S.boulardii)] 250 mg Capsule
250 mg PO DAILY
levothyroxine 25 mcg Tablet
25 mcg PO DAILY
vitamin B complex Capsule
1 cap PO DAILY
ezetimibe 10 mg Tablet
10 mg PO DAILY
ivabradine 5 mg Tablet
5 mg PO BID
metformin 500 mg Tablet Extended Release 24 Hr
1,000 mg PO BID
multivitamin with folic acid [Tab-A-Rod] 1 TABLET tablet
1 tab PO DAILY Qty: 0 0RF
Discontinued
alprazolam 0.5 mg Tablet
0.5 mg PO QID
Discharge Orders:
Discharge Patient (As Directed); Ordered 01/09/25
Ordered By: Elizabeth Gallardo
Discharge Date and Time
Discharge Date/Time: 01/09/25 14:36
Print Language: TURKISH
== END 2025-01-09 14:36 | DRG 357 ==
LOC: 2 SOUTH 18:15
PROVIDERS: Clinical Nurse Specialist Family Health; Internal Medicine; Internal Medicine Gastroenterology; Nurse Practitioner Family; Registered Nurse; Student in an Organized Health Care Education/Training Program; ADMITTING PHYSICIAN Internal Medicine; ATTENDING PHYSICIAN Internal Medicine; CONSULT PHYSICIAN Internal Medicine Gastroenterology; CONSULT PHYSICIAN Internal Medicine Hematology & Oncology; CONSULT PHYSICIAN Surgery; CONSULT PHYSICIAN Urology; EMERGENCY PHYSICIAN Emergency Medicine; FAMILY PHYSICIAN Family Medicine; OTHER PHYSICIAN Internal Medicine Cardiovascular Disease
PROC: 30233N1 Transfusion of Nonautologous Red Blood Cells into Peripheral Vein, Percutaneous Approach (ICD-10-PCS; 2024-12-30)
PROC: 0DBP8ZZ Excision of Rectum, Via Natural or Artificial Opening Endoscopic (ICD-10-PCS; 2025-01-01)
PROC: 0DBL8ZZ Excision of Transverse Colon, Via Natural or Artificial Opening Endoscopic (ICD-10-PCS; 2025-01-01)
PROC: 0DBN8ZZ Excision of Sigmoid Colon, Via Natural or Artificial Opening Endoscopic (ICD-10-PCS; 2025-01-01)
PROC: 0DB18ZX Excision of Upper Esophagus, Via Natural or Artificial Opening Endoscopic, Diagnostic (ICD-10-PCS; 2025-01-01)
PROC: 0DBC8ZX Excision of Ileocecal Valve, Via Natural or Artificial Opening Endoscopic, Diagnostic (ICD-10-PCS; 2025-01-01)
PROC: 0DB98ZX Excision of Duodenum, Via Natural or Artificial Opening Endoscopic, Diagnostic (ICD-10-PCS; 2025-01-01)
PROC: 0DBK8ZZ Excision of Ascending Colon, Via Natural or Artificial Opening Endoscopic (ICD-10-PCS; 2025-01-01)
PROC: 0TBB8ZZ Excision of Bladder, Via Natural or Artificial Opening Endoscopic (ICD-10-PCS; 2025-01-05)
PROC: 02HV33Z Insertion of Infusion Device into Superior Vena Cava, Percutaneous Approach (ICD-10-PCS; 2025-01-08)
PROC: 0JH60WZ Insertion of Totally Implantable Vascular Access Device into Chest Subcutaneous Tissue and Fascia, Open Approach (ICD-10-PCS; 2025-01-08)
PROC: 3E02340 Introduction of Influenza Vaccine into Muscle, Percutaneous Approach (ICD-10-PCS; 2025-01-09)
DX: C18.0 Malignant neoplasm of cecum (principal); D62 Acute posthemorrhagic anemia; I42.8 Other cardiomyopathies; I50.22 Chronic systolic (congestive) heart failure; I47.19 Other supraventricular tachycardia; F13.20 Sedative, hypnotic or anxiolytic dependence, uncomplicated; D68.32 Hemorrhagic disorder due to extrinsic circulating anticoagulants; K92.2 Gastrointestinal hemorrhage, unspecified; C67.9 Malignant neoplasm of bladder, unspecified; I48.0 Paroxysmal atrial fibrillation; I11.0 Hypertensive heart disease with heart failure; D51.9 Vitamin B12 deficiency anemia, unspecified; I95.89 Other hypotension; D50.9 Iron deficiency anemia, unspecified; E11.9 Type 2 diabetes mellitus without complications; S40.812A Abrasion of left upper arm, initial encounter; W19.XXXA Unspecified fall, initial encounter; K31.7 Polyp of stomach and duodenum; K57.30 Diverticulosis of large intestine without perforation or abscess without bleeding; K63.5 Polyp of colon; K62.1 Rectal polyp; K22.89 Other specified disease of esophagus; R82.81 Pyuria; K64.9 Unspecified hemorrhoids; E78.00 Pure hypercholesterolemia, unspecified; G47.00 Insomnia, unspecified; E03.9 Hypothyroidism, unspecified; F41.9 Anxiety disorder, unspecified; K31.89 Other diseases of stomach and duodenum; D25.9 Leiomyoma of uterus, unspecified; T45.515A Adverse effect of anticoagulants, initial encounter; Z95.3 Presence of xenogenic heart valve; Z95.0 Presence of cardiac pacemaker; Z23 Encounter for immunization; Z86.79 Personal history of other diseases of the circulatory system; Z87.891 Personal history of nicotine dependence; Z79.01 Long term (current) use of anticoagulants
CPT/HCPCS: 70450; 71045; 71260; 74177; 76000; 80048; 80053; 81003; 81015; 82378; 82607; 82728; 82746; 82805; 82962; 83540; 83550; 83735; 84100; 84134; 85014; 85018; 85025; 85027; 85610; 85730; 86140; 86850; 86900; 86901; 86920; 87086; 88305; 88307; 88341; 88342; 93005; 93306; 96374; 96376; 97116; 97163; 97167; 97530; 97535; 99285; C1788; J2916; P9016; Q9967

== ENCOUNTER 2025-02-18 05:48 | Inpatient (IN) | payer MEDICARE, OTHER, SELFPAY ==
--- NOTE | 2025-02-09 12:56 | PTCARENOTE ---
Abnormal BUN 41 collected 01/09/[address] Carrie at Dr Todd's office
[2025-02-10 11:08] LABS: INR 1.25; PT 16.2 Sec (11.4-14.6)
[2025-02-10 11:09] LABS: APTT 43.7 Sec (23.4-35.0)
[2025-02-10 11:22] LABS: ALT (SGPT) 20 U/L (0-35); AST (SGOT) 18 U/L (14-36); Albumin 4.5 g/dl (3.5-5.0); Alkaline Phosphatase 60 U/L (38-126); Blood Urea Nitrogen 38 mg/dl (7-17); Calcium 10.0 mg/dl (8.4-10.2); Carbon Dioxide 28 mmol/L (22-30); Chloride 100 mmol/L (98-107); Glucose 97 mg/dl (70-99); Potassium 4.5 mmol/L (3.5-5.1); Sodium 134 mmol/L (135-145); Total Protein 7.0 g/dl (6.3-8.2); eGFR > 60.00
[2025-02-10 11:30] LABS: Hematocrit 31.4 % (37.0-47.0); Hemoglobin 9.5 g/dL (12.0-16.0); Mean Corp Hgb Conc. 30.3 g/dL (33.0-37.0); Mean Corpuscular Volume 82.6 fL (81.0-99.0); Platelet Count 429 10^3/uL (130-400)
[2025-02-10 14:13] VITALS: BMI 26.8
[2025-02-18] VITALS (39 sets, daily range): BP systolic 50–154; BP diastolic 45–86; BMI 26.8; BMI 27.5
[2025-02-18] MEDS: NORMOSOL-R/PLASMALYTE-A 1000 IV ×2 (06:50→15:53)
[2025-02-18 06:58] LABS: Glucose - Point of Care 109 mg/dl (70-99)
[2025-02-18] MEDS: TYLENOL 1000 MG PO (07:09)
[2025-02-18] MEDS: MOBIC 15 MG PO (07:09)
[2025-02-18] MEDS: RELISTOR 8 MG SC (07:09)
[2025-02-18] MEDS: HEPARIN 5000 UNITS SC (07:09)
--- NOTE | 2025-02-18 07:50 | PTCARENOTE ---
RN attempted to call [facility] to review patient's medications three times with no response. RN reviewed them with the patient who is AAO x3. Mark RUBALCAVA Nurse Inside Outside Sales Representative was made aware.
[2025-02-18 09:31] LABS: Hematocrit 22.2 % (37.0-47.0); Hemoglobin 6.8 g/dL (12.0-16.0); Mean Corp Hgb Conc. 30.6 g/dL (33.0-37.0); Mean Corpuscular Volume 78.7 fL (81.0-99.0); Nucleated Red Blood Cells % 0 %; Platelet Count 377 10^3/uL (130-400); Red Cell Dist. Width 24.8 % (11.5-14.5); Reticulocyte Count 1.5 % (0.4-2.8)
--- NOTE | 2025-02-18 11:48 | W.IMMPOSTOP ---
Surgical Immed Post Op Note
-
Primary Surgeon: Donny Todd MD
Assisting Surgeon: Orin Schmitt MD, Navin Chatterjee MD, Onel Marie MD
Pre-op Diagnosis: Bladder cancer, colon cancer
Post-op Diagnosis: Bladder cancer, colon cancer
Procedure Performed: Exploratory laparotomy, right hemicolectomy
Anesthesia Type: General
Specimen / Cultures: Right colectomy
Estimated Blood Loss: 10 mL for my portion
Complications: None
Operative Findings: I was present for entry into the abdomen; no palpable lesions on the anterior liver or visible lesions along the peritoneum; I felt the palpable mass at the cecum and confirmed the appropriate surgery to be right hemicolectomy;
urology proceeded with their portion of the surgery; I was called back to perform mine; uneventful right hemicolectomy; urology had divided the small bowel at 10 cm from the ileocecal valve; I mobilized the cecum and ascending colon from a medial to
lateral approach; the ureter was dissected out by urology and easily identified; I entered the lesser sac through the gastrocolic ligament and mobilized to the proximal transverse and hepatic flexure; I identified the duodenum and kept the safe; I
divided the ileocolic pedicle and a high ligation fashion; I divided the colon at the proximal transverse, just distal to the right branch of the middle colic; I divided the right branch of the middle colic and a high ligation fashion; divided the
remainder of the mesentery with LigaSure; performed [id number] antiperistaltic ileocolic stapled anastomosis; anastomosis appeared healthy, well-perfused and peristalsing; urology continued with the procedure
--- NOTE | 2025-02-18 11:55 | OR.RPT ---
Operative Report
Operative Report
DATE OF OPERATION: 02/18/2025
SURGEON: Donny Todd MD
PREOPERATIVE DIAGNOSIS: Bladder cancer, ileocecal adenocarcinoma
POSTOPERATIVE DIAGNOSIS: Bladder cancer, ileocecal adenocarcinoma
OPERATION: Exploratory laparotomy, lysis of adhesions, right hemicolectomy; cystectomy with creation of ileal conduit and hysterectomy performed by urology
ASSISTANTS:
1. Orin Schmitt MD
2. Navin Chatterjee MD
3. Onel Marie MD
4. Shante Mora NP
ANESTHESIA: General
ESTIMATED BLOOD LOSS: 10 mL
FINDINGS:
1. Palpable mass in the cecum
2. Performed stapled anteperistaltic ileocolic anastomosis to the proximal transverse colon
SPECIMENS:
1. Right colectomy
DRAINS: None
COMPLICATIONS: No immediate complications.
INDICATIONS: The patient is a 74-year-old female who was found to have an adenocarcinoma at the ileocecal valve during a colonoscopy done for hematochezia. On the staging CT scans, she was also found to have bladder cancer, confirmed by cystoscopy
done by Dr. Marie. After a multidisciplinary discussion at the [place] tumor board, the recommendation was to proceed with surgery for both the colon cancer and bladder cancer. I recommended combination surgery with myself and urology due to
the ease of the intraoperative logistics. The operation was discussed with the patient before and in detail, including risks, benefits and alternatives. Risks described included, but are not limited to, bleeding, infection, anastomotic leak or
stricture, ureteral injury, bowel or solid organ injury, need for ostomy, hernia, incomplete resection of tumor with positive margins, recurrence, bowel obstruction and anesthetic risks, including but not limited to, NM, CVA, PE/DVT, pulmonary
failure, other organ failure and . The patient understood and agreed to proceed. This was also discussed preoperatively with the patient's POA, Promise Johns, who also agreed to surgery.
PROCEDURE IN DETAIL: The patient was taken to the operating room and placed on the operating table in supine position. Sequential compression devices were placed bilaterally. General anesthesia was induced and the patient was intubated without
complication. The patient was placed in lithotomy position with both arms secured in extended position. Urology prepped and draped the abdomen and perineum in a sterile fashion. A time-out was performed verifying the correct patient, procedure,
operative site, positioning, and special equipment. Anesthesia placed an orogastric tube. IV ertapenem was given preincision.
Dr. Chatterjee performed the initial midline incision with a 10 blade scalpel. I was present for assistance. Upon entry into the abdomen, the abdomen was explored. I palpated the anterior surface of the liver and there were no palpable lesions
identified. There were no obvious peritoneal lesions concerning for peritoneal involvement. I was able to palpate the mass in the cecum immediately adjacent to the ileocecal valve. I confirmed that my plan would be to perform a right
hemicolectomy. The urology team proceeded with their portion of the surgery, which will be dictated separately. After completion of the cystectomy and hysterectomy, I was called back to perform the right hemicolectomy. On arrival, the patient was
in Trendelenburg position with the Bookwalter in place.
I placed the patient in right side up. I placed body wall retractors on the Bookwalter to expose the right gutter. There were attachments from the omentum to the anterior abdominal wall, which I took down with electrocautery and the LigaSure. The
right ureter had been dissected and the right retroperitoneum had been opened up to the level of the mid ascending colon. The small bowel had been divided at 10 cm from the ileocecal valve and then divided again more proximally in preparation for
the ileal conduit. I began by performing a lateral to medial dissection in the usual sub-mesenteric space. I mobilized the cecum and ascending colon up to the hepatic flexure with a combination of blunt dissection and electrocautery, taking care to
avoid injury to retroperitoneal structures.
There were additional adhesions from the small bowel to the omentum and the mesentery of the transverse colon. These were taken down sharply, taking care to avoid injury to the bowel. The bowel was assessed and no injury was noted. The omentum
was elevated and the gastrocolic ligament was divided. I confirmed entry in the lesser sac by visualizing the posterior wall of the stomach. I mobilized the proximal transverse colon as well as the hepatic flexure using blunt dissection and
electrocautery as well as the LigaSure, taking care to avoid injury to the mesentery, stomach, duodenum and liver. There was black staining to the duodenum, likely due to the tattoo that had been placed during her EGD.
The right colon was now completely mobilized. I circumferentially dissected the base of the ileocolic pedicle and divided this in a high ligation fashion with the LigaSure. The duodenum was kept safe. I divided the mesentery up to the transected
small bowel. I selected a point along the proximal transverse colon that was distal to the right branch of the middle colic. I created a hole in the mesentery with electrocautery and divided with the JUAN 60 with a purple load. The staple line was
hemostatic. I identified the right branch of the middle colic. This was dissected circumferentially and divided in a high ligation fashion with the LigaSure. I divided the remainder of the mesentery with the goal of obtaining an adequate
lymphadenectomy and taking care to avoid injury to retroperitoneal structures including the duodenum. The specimen was passed off for pathology
Urology assessed the isolated ileum for the ileal conduit and they were satisfied with the perfusion. I began my reconstruction. The future ileal conduit was laid in the right lower quadrant and the ileum staple line was brought up to the divided
transverse colon. This laid nicely for a ileocolic antiperistaltic anastomosis. Both limbs appeared well-perfused and healthy. I placed blue towels to exclude the operative field from the limbs of bowel. I cut the antimesenteric corners of the
staple lines off. I placed the JUAN 80 with a purple load in the bowel openings, aligned the antimesenteric portion of each limb and stapled. The common channel was evaluated and appeared hemostatic. The common ileocolotomy was reapproximated with
Allis clamps. The TA 60 with a blue load was used to staple close the common ileocolotomy. The staple line was hemostatic. The anastomosis was closely evaluated and appeared healthy with good perfusion and witnessed peristalsis.
At this point, my portion of the procedure was complete. I recommended leaving the mesenteric defect open, but ensuring no bowel prolapsing through it at the end of the case, with which urology agreed. The remainder of the surgery and patient
disposition will be dictated by urology. The patient tolerated my portion of the procedure well.
I was present for the initial midline laparotomy and for the entire portion of the right hemicolectomy. The urology team and Shante Mora NP assisted me with traction, countertraction and with dissection during my portion of the surgery
DICTATED BY: Donny Todd MD
[2025-02-18 12:14] LABS: B.E. - POC -7.9 mmol/L; Glucose - POC 168 mg/dl (70-99); HCO3 - POC 19 mmol/L (21-28); Hematocrit - POC 31 % PCV (37-47); Hemodilution- POC No; Hemoglobin Calculated - POC 10.5; Ionized Calcium - POC 1.47 mmol/L (1.15-1.33); Lactate - POC 0.93 mmol/L (0.36-0.75); O2 Saturation %Calculated-POC 93.7 % (94-98); PCO2 - POC 45 mmHg (35-48); PO2 - POC 82 mmHg (83-108); Potassium - POC 5.2 mmol/L (3.5-5.1); Sodium - POC 135 mmol/L (136-145); Specimen Type - POC Venous; pH - POC 7.24 (7.35-7.45)
--- NOTE | 2025-02-18 14:06 | HPS.HSE ---
Addendum entered and electronically signed by Eric Flynn DO 02/18/25 15:28:
Patient seen and examined independently. Agree with findings and plan as set forth by LILLY Feldman.
Patient is a 74y F with recent diagnosis of colon cancer and bladder cancer who presented to today for surgical resection. Patient underwent ex lap, BING, R hemicolectomy, cystectomy and creation of ileal conduit and hysterectomy today. She was
seen and examined in the PACU post-op. Patient looks very well following extensive surgical procedure. She is awake and answering questions / following commands. She denies any chest pain, dyspnea, etc at present.
Patient has R sided ileal conduit with some blood drainage into device. LLQ АЛЕКСАНДР drain with sanguinous drainage. Midline incision intact with occlusive dressing.
Ass:
s/p ex lap, BING, R hemicolectomy, cystectomy and creation of ileal conduit and hysterectomy 02/18/25
Bladder Cancer
Colon Cancer
Acute on Chronic Blood Loss Anemia
Benign Hypertension
Chronic HFrEF
Paroxysmal Atrial Fibrillation
DM-II
Hypothyroidism
Plan:
Admit to ICU post-op.
Post-op care per Colorectal / Urology.
Launch Steward evaluation while in ICU.
Continue usual home med regimen including diuretics, etc.
Continue chronic alprazolam - holding for sedation.
Follow H&H and transfuse if needed.
Post-op DVT prophylaxis for now - resume usual Eliquis when OK with surgical services.
Original Note:
Family Physician
-
Family Physician: Mina Quintana
Chief Complaint
-
cystectomy, ileal conduit, and R colectomy
History of Present Illness
Patient is a 74-year-old female with past medical history significant for colon cancer, bladder cancer, hypertension, hyperlipidemia, hypothyroidism, nonischemic cardiomyopathy, paroxysmal atrial fibrillation, and hx complete heart block s/p PPM who
presented to [facility] for scheduled cystectomy, ileal conduit, and R colectomy. Patient with recent hospitalization 12/30/2024 - 01/09/2025 for low hemiglobin where patient noted she had intermittent hemorrhoidal bleeding and 1 day of hematuria that
resolved. During that admission patient was found to have invasive colon adenocarcinoma along with presumed muscle-invasive bladder cancer. Patient was discharged to rehab and then home. During continued out patient treatment patient elected to
proceed with recommended cystectomy, ileal conduit, and R colectomy. Denies any recent illness, fever, chills, cough, shortness of breath or chest pain.
Medical History
Past Medical History
Past Medical History: Reports Other
Additional Past Medical History:
colon cancer
bladder cancer
nonischemic cardiomyopathy, heart failure reduced EF 35 to 40% May 20, 2023
endocarditis
echo August 2022 EF 40-45% moderate bioprosthetic mitral regurg
mitral valve replacement on
Iron deficiency anemia
B12 deficiency anemia
HTN/hypotension
HLD
Pacemaker secondary to complete heart block Medtronic dual-chamber 2015
Paroxysmal A-fib
Atrial tachycardia send post PVI December 2022
small bowel obstruction
Insomnia
Hypothyroidism
Past Surgical History: Reports Other
Additional Past Surgical History:
Pacemaker secondary to complete heart block Medtronic dual-chamber 2015
Atrial tachycardia send post PVI December 2022
Mitral valve replacement 11/07/2015
Appendectomy
Social History
Tobacco: Former Smoker (In college)
Alcohol: Occasional (Last drink 6 months ago)
Personal: Single
Employment: Retired
Family History
Family History: Early CAD (Both parents in their 40s heart disease)
Allergies / Home Medications
Allergies reflects when Allergies were last updated in [facility].
Home Medications with original date entered in [facility]
Allergy/Medication List:
Allergies
Allergy/AdvReac Type Severity Reaction Status Date / Time
codeine Allergy Hives Verified 02/18/25 06:59
iodine Allergy CONGESTION Verified 02/18/25 06:59
shellfish derived Allergy CONGESTION Verified 02/18/25 06:59
Sulfa (Sulfonamide Allergy Unknown Verified 02/18/25 06:59
Antibiotics)
Home Medications
carvedilol 3.125 mg tablet 3.125 mg PO BID ##60 11/13/15
furosemide 20 mg tablet 20 mg PO SUWE Fluid retention/Swelling 12/01/15
lisinopril 2.5 mg tablet 2.5 mg PO DAILY Blood pressure 06/05/20
apixaban 5 mg tablet (Eliquis) 5 mg PO BID Blood Clot Prevention/Tx 12/26/22
atorvastatin 40 mg tablet 40 mg PO HS High Cholesterol 12/26/22
Saccharomyces boulardii 250 mg capsule (Probiotic (S.boulardii)) 250 mg PO DAILY Supplement 01/15/23
thiamine HCl (vitamin B1) 100 mg tablet (Vitamin B-1) 100 mg PO DAILY Supplement 01/15/23
ezetimibe 10 mg tablet 10 mg PO DAILY High Cholesterol 07/05/23
ivabradine 5 mg tablet 5 mg PO BID Heart Failure 07/05/23
vitamin B complex 1 cap PO DAILY Supplement 07/05/23
alprazolam 0.5 mg tablet 0.5 mg PO QID anxiety #10 tabs 01/09/25
acetaminophen 325 mg tablet 650 mg PO Q6H t>100; mild pain 02/12/25
alprazolam 0.5 mg tablet (Xanax) 0.5 mg PO ONCE prior to day of surgery 02/12/25
bisacodyl 10 mg rectal suppository (Dulcolax (bisacodyl)) 10 mg AL PRN PRN If MOM is ineffective 02/12/25
dextrose 40 % oral gel (Glucose Gel) 1 ea PO PRN PRN Hypoglycemia- Glucos < 60 02/12/25
glucagon 1 mg/0.2 mL subcutaneous auto-injector (Gvoke HypoPen 1-Pack) 1 mg SC ONCE PRN hypoglycemia 02/12/25
levothyroxine 25 mcg tablet (Synthroid) 25 mcg PO DAILY 02/12/25
magnesium hydroxide 400 mg/5 mL oral suspension (Milk of Magnesia) 30 ml PO PRN PRN No BM x 3 days 02/12/25
melatonin 5 mg tablet 5 mg PO HS PRN Insomnia 02/12/25
metformin 1,000 mg tablet 1,000 mg PO BID 02/12/25
metronidazole 500 mg tablet 500 mg PO PRE PROCEDURE 02/12/25
multivitamin 1 tab PO DAILY 02/12/25
neomycin 500 mg tablet 1 g PO PRE PROCEDURE 02/12/25
polyvinyl alcohol 1.4 % eye drops (Artificial Tears (polyvinyl alcohol)) 1 drp ophthalmic (eye) BID 02/12/25
sodium phosphates 19 gram-7 gram/118 mL enema (Fleet Enema) 118 ml AL PRN PRN If Dulcolax ineffective 02/12/25
GaviLyte-G PO DIRECTED 02/18/25
Review of Systems
-
History Source: Patient
A 12 point ROS was completed and negative except as noted: Yes
Constitutional: Reports No Symptoms
EENT: Reports No Symptoms
Respiratory: Reports No Symptoms
Cardiac: Reports No Symptoms
Abdomen/GI: Reports No Symptoms
: Reports No Symptoms
Musculoskeletal: Reports No Symptoms
Skin: Reports No Symptoms
Neurological: Reports No Symptoms
Endocrine: Reports No Symptoms
Hematologic/Lymphatic: Reports No Symptoms
Psych: Reports No Symptoms
Physical Exam
Vital Signs
Vital Signs
Temp Pulse Resp BP Pulse Ox
99 F 84 13 140/79 100
02/18/25 06:45 02/18/25 14:00 02/18/25 14:00 02/18/25 14:00 02/18/25 14:00
Physical Exam
General: Well Developed, Well Nourished, No Apparent Distress, Comfortable and Conversant
HEENT: NormoCephalic, Moist mucous membranes, PERRLA, Nose Appears Normal and Ears Appear Normal
Respiratory: Clear and Non Labored Respirations; No Wheezes, Rales or Rhonchi
Cardiac: Regular Rhythm; No Murmur, Rub, Gallop or Peripheral Edema
GI: Soft, Non Distended, Normal Bowel Sounds, Ostomy (RUQ) and Other (surgical incision present with dressing clean, dry and intact )
Genito-urinary: Other (ileum conduit)
Musculoskeletal: No Clubbing, No Cyanosis and No Edema
Skin: Warm, IV/Catheter Site and Other (abdominal surgical incision with dressing intact )
Neuro: Awake and AO x 3
Hematologic/Lymphatic: No Lymphadenopathy
Psych: Calm
Laboratory Results
-
Laboratory Results
PT 16.2 Sec (11.4-14.6) H 02/10/25 09:38
INR 1.25 02/10/25 09:38
APTT 43.7 Sec (23.4-35.0) H 02/10/25 09:38
Total Bilirubin 0.6 mg/dl (0.2-1.3) 02/10/25 09:38
AST 18 U/L (14-36) 02/10/25 09:38
ALT 20 U/L (0-35) 02/10/25 09:38
Alkaline Phosphatase 60 U/L (38-126) 02/10/25 09:38
Data Reviewed
-
Lab Data: Labs Reviewed by me (WBC 14.8, hgb 6.8, hct 22.2, neut 87.1)
Impression/Plan
-
IMPRESSION/PLAN:
#colon cancer
#bladder cancer
s/p cystectomy, ileal conduit, and R colectomy today 02/18/2025
WBC 14.8, neut 87.1
- Admit to ICU
- Consult Launch Steward
- Consult Urology
- Consult Colorectal
- pain regimen
#anemia
hgb 6.8, hct 22.2
- blood consent obtained prior to surgery
- transfuse as indicated
#hypertension
- continue lisinopril
#hyperlipidemia
- continue atorvastatin and ezetimibe
#hypothyroidism
- continue levothyroxine
#nonischemic cardiomyopathy
#heart failure reduced EF
EF 35 to 40% May 20, 2023
- I & Os
- daily weights
- hold furosemide
- continue ivabradine
#paroxysmal atrial fibrillation
- continue carvedilol and Eliquis
#type 2 diabetes
- AccuCheck AC & HS
- SSI
- hold metformin while inpatient
#hx complete heart block
s/p PPM
Code status: full code
DVT prophylaxis: Lovenox sq
[2025-02-18 14:13] LABS: Glucose - Point of Care 130 mg/dl (70-99)
[2025-02-18 14:59] LABS: Blood Urea Nitrogen 23 mg/dl (7-17); Calcium 8.4 mg/dl (8.4-10.2); Carbon Dioxide 22 mmol/L (22-30); Chloride 106 mmol/L (98-107); Estimated Creatinine Clearance 54 ml/min; Glucose 153 mg/dl (70-99); Potassium 4.5 mmol/L (3.5-5.1); Sodium 134 mmol/L (135-145); eGFR > 60.00
[2025-02-18 15:28] LABS: Hematocrit 42.7 % (37.0-47.0); Hemoglobin 13.9 g/dL (12.0-16.0); Mean Corp Hgb Conc. 32.6 g/dL (33.0-37.0); Mean Corpuscular Volume 80.9 fL (81.0-99.0); Platelet Count 305 10^3/uL (130-400); Red Cell Dist. Width 18.2 % (11.5-14.5)
[2025-02-18 15:39] LABS: Glucose - Point of Care 153 mg/dl (70-99)
--- NOTE | 2025-02-18 15:53 | W.IMMPOSTOP ---
Surgical Immed Post Op Note
-
Primary Surgeon: Cynthia
Assisting Surgeon: Oskar Chatterjee
Pre-op Diagnosis: Bladder cancer
Post-op Diagnosis: same
Procedure Performed: Radical cystectomy, pelvic exenteration, pelvic lymph node dissection, ileal conduit urinary diversion
Anesthesia Type: general
Specimen / Cultures: bladder/uterus/ovaries/anterior vagina, pelvic lymph nodes, distal ureteral margins
Estimated Blood Loss: 1200cc
Complications: none
Operative Findings: -
--- NOTE | 2025-02-18 16:05 | W.PN.UPDATE ---
Update Note
Progress Note Update
Labs and vitals stable post op
ICU admission
Hospitalist consulted
IVF x2bags overnight
Incentive spirometry
Ureteral stents to remain in place for 7-10 days
Urostomy bag to gravity
АЛЕКСАНДР drain bulb suction
Pain control:
Standing IV tylenol
Gabapentin 200mg PO TID
Dilaudid TRIBUNAL MEMBER
Bowel recovery:
- Clear liquids tonight
- Regimen and diet per colorectal
Wound/ostomy consult for stoma care and teaching
PT/OT consult
Case management consult
--- NOTE | 2025-02-18 16:11 | CON.INTV ---
Consultation
Consultation Request
Date/Time Consultation Requested: 02/18/2025
Date/Time Consultation Performed: 02/18/2025
Medical History
-
History of Present Illness:
Patient is a very pleasant 74-year-old female with known history of newly diagnosed colon cancer as well as bladder cancer in December 2024 who presented to the hospital for scheduled cystectomy and ileal conduit formation with right colectomy.
Patient initially was diagnosed with iron deficiency anemia in December 2024 along with hematuria which led to additional investigation including EGD, colonoscopy followed by cystoscopy with new diagnosis of invasive colon adenocarcinoma and
urothelial cancer. Patient was electively admitted to the hospital on 02/22 definitive surgical treatment, postprocedure was admitted to intensive care unit and vp cardiovascular consultation was requested for further input.
Past Medical History
Past Medical History: Reports Other
Additional Past Medical History:
colon cancer
bladder cancer
nonischemic cardiomyopathy, heart failure reduced EF 35 to 40% May 20, 2023
endocarditis
echo August 2022 EF 40-45% moderate bioprosthetic mitral regurg
mitral valve replacement on Eliquis
Iron deficiency anemia
B12 deficiency anemia
HTN/hypotension
HLD
Pacemaker secondary to complete heart block Medtronic dual-chamber 2015
Paroxysmal A-fib
Atrial tachycardia send post PVI December 2022
small bowel obstruction
Insomnia
Hypothyroidism
Past Surgical History: Reports Other
Additional Past Surgical History:
Pacemaker secondary to complete heart block Medtronic dual-chamber 2015
Atrial tachycardia send post PVI December 2022
Mitral valve replacement 11/07/2015
Appendectomy
Social History
Tobacco: Former Smoker (In college)
Alcohol: Occasional (Last drink 6 months ago)
Personal: Single
Employment: Retired
Family History
Family History: Early CAD (Both parents in their 40s heart disease)
Allergies / Home Medications
Allergies / Home Medications
Allergies
Allergy/AdvReac Type Severity Reaction Status Date / Time
codeine Allergy Hives Verified 02/18/25 06:59
iodine Allergy CONGESTION Verified 02/18/25 06:59
shellfish derived Allergy CONGESTION Verified 02/18/25 06:59
Sulfa (Sulfonamide Allergy Unknown Verified 02/18/25 06:59
Antibiotics)
Home Medications
�Medication �Instructions �Recorded �Confirmed �Last Taken �Type
carvedilol 3.125 mg tablet 3.125 mg PO BID ##60 11/13/15 02/18/25 02/17/25 21:00 Rx
furosemide 20 mg tablet 20 mg PO SUWE Fluid 12/01/15 02/18/25 08/04/23 08:00 History
retention/Swelling
lisinopril 2.5 mg tablet 2.5 mg PO DAILY Blood pressure 06/05/20 02/18/25 02/17/25 09:00 History
apixaban 5 mg tablet (Eliquis) 5 mg PO BID Blood Clot 12/26/22 02/18/25 02/13/25 History
Prevention/Tx
atorvastatin 40 mg tablet 40 mg PO HS High Cholesterol 12/26/22 02/18/25 02/17/25 21:00 History
Saccharomyces boulardii 250 mg 250 mg PO DAILY Supplement 01/15/23 02/18/25 02/17/25 09:00 History
capsule (Probiotic (S.boulardii))
thiamine HCl (vitamin B1) 100 mg 100 mg PO DAILY Supplement 01/15/23 02/18/25 08/05/23 08:00 History
tablet (Vitamin B-1)
ezetimibe 10 mg tablet 10 mg PO DAILY High Cholesterol 07/05/23 02/18/25 02/17/25 09:00 History
ivabradine 5 mg tablet 5 mg PO BID Heart Failure 07/05/23 02/18/25 02/18/25 05:00 History
vitamin B complex 1 cap PO DAILY Supplement 07/05/23 02/18/25 08/05/23 08:00 History
alprazolam 0.5 mg tablet 0.5 mg PO QID anxiety #10 tabs 01/09/25 02/18/25 02/17/25 21:00 Rx
acetaminophen 325 mg tablet 650 mg PO Q6H t>100; mild pain 02/12/25 02/18/25 Unknown History
alprazolam 0.5 mg tablet (Xanax) 0.5 mg PO ONCE prior to day of 02/12/25 02/18/25 02/18/25 05:00 History
surgery
bisacodyl 10 mg rectal suppository 10 mg IN PRN PRN If MOM is 02/12/25 02/18/25 02/17/25 14:00 History
(Dulcolax (bisacodyl)) ineffective
dextrose 40 % oral gel (Glucose 1 ea PO PRN PRN Hypoglycemia- 02/12/25 02/18/25 Unknown History
Gel) Glucos < 60
glucagon 1 mg/0.2 mL subcutaneous 1 mg SC ONCE PRN hypoglycemia 02/12/25 02/18/25 Unknown History
auto-injector (Gvoke HypoPen
1-Pack)
levothyroxine 25 mcg tablet 25 mcg PO DAILY 02/12/25 02/18/25 02/17/25 05:00 History
(Synthroid)
magnesium hydroxide 400 mg/5 mL 30 ml PO PRN PRN No BM x 3 days 02/12/25 02/18/25 Unknown History
oral suspension (Milk of Magnesia)
melatonin 5 mg tablet 5 mg PO HS PRN Insomnia 02/12/25 02/18/25 Unknown History
metformin 1,000 mg tablet 1,000 mg PO BID 02/12/25 02/18/25 02/16/25 21:00 History
metronidazole 500 mg tablet 500 mg PO PRE PROCEDURE 02/12/25 02/18/25 02/17/25 22:00 History
multivitamin 1 tab PO DAILY 02/12/25 02/18/25 Unknown History
neomycin 500 mg tablet 1 g PO PRE PROCEDURE 02/12/25 02/18/25 02/17/25 22:00 History
polyvinyl alcohol 1.4 % eye drops 1 drp ophthalmic (eye) BID 02/12/25 02/18/25 02/17/25 21:00 History
(Artificial Tears (polyvinyl
alcohol))
sodium phosphates 19 gram-7 118 ml IN PRN PRN If Dulcolax 02/12/25 02/18/25 Unknown History
gram/118 mL enema (Fleet Enema) ineffective
GaviLyte-G PO DIRECTED 02/18/25 02/17/25 21:00 History
Review of Systems
-
Hematologic/Lymphatic: Other (All 14 systems reviewed and negative except as stated above in the history of present illness.)
Vitals / Labs / Diagnostic Testing
Vital Signs
Temp Pulse Resp BP Pulse Ox
97.5 F 79 15 135/67 100
02/18/25 15:48 02/18/25 16:00 02/18/25 16:00 02/18/25 16:00 02/18/25 16:04
Lab Data
02/18/25 14:33
02/18/25 14:33
Diagnostic Testing:
Physical Exam
-
HEENT: Normocephalic (Watering of eyes noted.)
Cardiovascular: S1/S2
Respiratory: Clear
GI: Soft and Other (Ostomy bag in place, mild sanguinous output noted, abdomen overall soft, bowel sounds absent)
Neurology: Awake, Alert and Oriented
Skin: Warm
General: Comfortable
Assessment
-
Patient is a 74-year-old female with new diagnosis of adenocarcinoma as well as urothelial cancer, is s/p exploratory laparotomy, adhesion lysis, right hemicolectomy, hysterectomy, radical cystectomy, pelvic exenteration, pelvic lymph node
dissection, ileal conduit urinary diversion, by vascular surgery service, POD #0
Continue observation following procedure
Follow neurovascular checks per protocol
Follow BP monitoring and parameters as set by primary team
Cardiac history reviewed, cardiac status well compensated
Monitor on telemetry
Pain control per protocol
RASS goal 0
No prior history of pulmonary disease, remote smoking history during college time. Reported history of smoking pot in the past, quit in the past.
CXR reviewed indicating no acute disease
No prior PFTs for review
Encouraged IS
Diet advancement per protocol
Aspiration precautions
GI prophylaxis: None
Cr at baseline, follow UO
Critical I/Os
Void trials
Replete electrolytes as needed
No signs/symptoms suspicious for infectious etiology at this time
Will observe off antibiotics for now
Follow temperatures/CBC
Hb and platelets, monitor postoperatively
DVT prophylaxis: Subcu Lovenox
Other medical diagnoses:
- Nonischemic cardiomyopathy, ejection fraction now improved to 50 to 55%, left heart catheterization without coronary artery disease in 2016
- History of mitral valve replacement with bioprosthetic valve, residual moderate mitral regurgitation
- Pulmonary hypertension, pulmonary artery systolic pressure 38 with moderate to severe tricuspid regurgitation, Group II PH with history of mitral valve disease
- History of AV block, status post pacemaker placement
- Paroxysmal atrial fibrillation
- Hypothyroidism
- Hyperlipidemia
- Diabetes
Critical Care time 63 mins -- The patient is admitted for acute critical illness for the treatment of vital organ failure and/or prevention of further life-threatening conditions. Total care includes time spent in review of history, physical exam,
medications, hemodynamic/ventilator parameters, laboratory data, imaging and discussion with house staff, pharmacy, respiratory therapy, engine repair supervisor, and nursing.
Data:
CXR 01/2025: Unremarkable.
CT C/A/P 12/2024:
CHEST
1. Mild cardiomegaly with moderate enlargement of the left atrial and ventricular chambers.
2. Previous mitral valve replacement.
3. Left-sided cardiac pacemaker in place.
4. Minimal bilateral pleural effusions.
5. Mild scarring in both lower lungs.
ABDOMEN and PELVIS:
1. Large polypoid intraluminal masses in the URINARY BLADDER suggesting EXTENSIVE UROTHELIAL CARCINOMA. A large amount of intraluminal blood clot is a less likely diagnostic possibility given that the polypoid masses appear to demonstrate
enhancement.
2. 2.5 cm mucosal-based mass in the PROXIMAL ASCENDING COLON which was recently biopsied and is likely COLON ADENOCARCINOMA.
3. Multiple uterine leiomyoma.
4. Small bubbles of extraluminal air adjacent to the 3rd portion of the duodenum (probably secondary to recent duodenal biopsy).
5. Severe discogenic degenerative disease at L5/S1.
6. Severe bilateral facet joint arthrosis at L4/L5 with associated grade 1 anterolisthesis.
Colonoscopy 12/2024: Ileocecal valve mass biopsy, invasive colonic adenocarcinoma, moderately differentiated.
TURBT 12/2024: Bladder right wall biopsy, high-grade papillary urothelial carcinoma with necrosis, invading into lamina propria
ECHO 12/2024: 1. Compared to a prior transthoracic echocardiogram study from December 2023 which was reviewed, Ejection fraction has improved from 40-45% to 50-55%.
2. Normal left ventricular size. Mild concentric left ventricular hypertrophy. Abnormal (paradoxical) septal motion. Normal systolic function. Ejection fraction is 50 to 55 % by visual assessment.
3. #29 Bovine magna bioprosthetic mitral valve replacement with peak/mean gradients of 8/4 mmHg. Moderate mitral regurgitation.
4. Moderate to severe tricuspid regurgitation. Estimated pulmonary artery pressure of 38 mmHg assuming a right atrial pressure of 3 mmHg.
Lexiscan 05/2023: No significant ischemia
RHC 09/2015: PCWP 30-46, PA 59/32. Normal coronary arteries.
--- NOTE | 2025-02-18 16:17 | CM ---
Chart reviewed, attempted to meet with pt but she was busy with RN. Information obtained from prior CM notes.
Pt admitted from [facility] where she has been for rehab since hospitalization in December.
Prior to that pt lived alone in second floor apartment, 12-13 steps to enter. 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
Has friends that assist with transportation to appointments.
PCP: Mina Quintana
Pharmacy: [facility]
Awaiting PT/OT eval in am, CM will continue to follow for all discharge planning needs.
--- NOTE | 2025-02-18 16:45 | PTCARENOTE ---
Rec'd patient from PACU around 1530. AAOx3. Pain controlled upon arrival. 100% vpaced on tele. Pulse ox < 92%; 2L nc reapplied. Lung sounds shallow, diminished throughout. Abdomen round/distended. Midline incision dressing with small amount of old
drainage. LLQ АЛЕКСАНДР drain draining sanguineous output. Urostomy to gravity. Small amount of serosanguineous output. IVFs infusing. Patient sipping on clears. Orders placed to initiate DIRECTOR OF FUNDRAISING pump for pain control.
[2025-02-18] MEDS: NEURONTIN 200 MG PO ×2 (17:01→21:57)
[2025-02-18] MEDS: OFIRMEV 100 IV ×2 (17:01→21:57)
[2025-02-18] MEDS: XANAX 0.5 MG PO (17:01)
[2025-02-18] MEDS: LOVENOX 40 MG SC (17:02)
[2025-02-18] MEDS: NOVOLOG FLEXPEN-LOW RESISTANCE 1 UNITS SC (17:09)
[2025-02-18 17:21] LABS: Glucose - Point of Care 162 mg/dl (70-99)
[2025-02-18] MEDS: DILAUDID PCA 30 IV (19:51)
[2025-02-18] MEDS: COREG 3.125 MG PO (20:04)
[2025-02-18] MEDS: NON-FORMULARY ITEM 5 MG PO (20:05)
--- NOTE | 2025-02-18 21:00 | PTCARENOTE ---
Assumed care of patient at 1900. Patient AAOx3, mildly anxious and drowsy @ times. AV paced/V paced on the monitor - HR 70s. Patient on 2L - satting 95% - lungs diminished in the bases bilaterally. Abd soft/round/distended and tender. Hypoactive
bowel sounds. Patient rating pain in abd 5-6/10. WATER REGULATOR AND VALVE REPAIRER pump started per order - see MAY. RUQ Urostomy w/ bloody drainage - stoma dark/dusky. LLQ АЛЕКСАНДР drain w/ bloody drainage. Midline incision/aquacell w/ small amounts of old bloody drainage. 18 RFA w/
Normosol and WATER REGULATOR AND VALVE REPAIRER pump infusing as ordered - see MAY. LFA capped.
[2025-02-18 21:56] LABS: Glucose - Point of Care 202 mg/dl (70-99)
[2025-02-18] MEDS: ERYTHROMYCIN 0.5% OPHTHALMIC OINTMENT 1 APPLIC OPHTH (21:56)
[2025-02-18] MEDS: LIPITOR 40 MG PO (21:56)
[2025-02-18] MEDS: XANAX PO (21:58)
[2025-02-18] MEDS: NOVOLOG FLEXPEN 3 UNITS SC (22:25)
[2025-02-19] VITALS (74 sets, daily range): BP systolic 72–130; BP diastolic 38–87; PULSE 73; O2SAT 97; BMI 27.7
--- NOTE | 2025-02-19 01:15 | PTCARENOTE ---
Systems reviewed. Assessment unchanged. Patient remains w/ moderate amount of sang drainage from LLQ АЛЕКСАНДР. Urostomy stoma/output unchanged. Patient w/ soft BPs at times while sleeping w/ maps in low 60s - EXECUTIVE SEARCH CONSULTANT aware.
[2025-02-19] MEDS: NORMOSOL-R/PLASMALYTE-A 1000 IV (02:14)
[2025-02-19 02:40] LABS: Glucose - Point of Care 135 mg/dl (70-99)
[2025-02-19] MEDS: XANAX 0.5 MG PO ×4 (03:04→17:38)
[2025-02-19] MEDS: OFIRMEV 100 IV (04:02)
[2025-02-19 04:29] LABS: Hematocrit 31.4 % (37.0-47.0); Hemoglobin 10.6 g/dL (12.0-16.0); Mean Corp Hgb Conc. 33.8 g/dL (33.0-37.0); Mean Corpuscular Volume 80.5 fL (81.0-99.0); Nucleated Red Blood Cells % 0 %; Platelet Count 249 10^3/uL (130-400); Red Cell Dist. Width 18.6 % (11.5-14.5)
[2025-02-19 04:43] LABS: Blood Urea Nitrogen 19 mg/dl (7-17); Calcium 7.9 mg/dl (8.4-10.2); Carbon Dioxide 26 mmol/L (22-30); Chloride 106 mmol/L (98-107); Estimated Creatinine Clearance 55 ml/min; Glucose 119 mg/dl (70-99); Magnesium 2.3 mg/dl (1.6-2.3); Potassium 4.3 mmol/L (3.5-5.1); Sodium 135 mmol/L (135-145); eGFR > 60.00
[2025-02-19] MEDS: SYNTHROID 25 MCG PO (05:58)
--- NOTE | 2025-02-19 06:36 | PTCARENOTE ---
Patient complaining of anxiety. 2200 dose of Xanax held d/t patient being drowsy/lethargic. ELECTRICIAN LOCOMOTIVE notified - one time dose of Xanax ordered and administered at approximately 0300 - see MAR. BPs remain soft - patient asymptomatic - ELECTRICIAN LOCOMOTIVE aware.
--- NOTE | 2025-02-19 07:00 | PTCARENOTE ---
Received patient in sleep, arousable to voice, A&Ox3, denied pain, AV paced/V paced in Rate of 70s, BP WNL, 2LNC, Diminished lung sounds, denied N/V, Clear liquid diet ordered, Right abdomen Urostomy w/ dark stoma color post op, warm and soft to
touch, patent for dark red urine drainage, Mid abdomen ex lap site covered with original dressing with small old drainage.
[2025-02-19] MEDS: NOVOLOG FLEXPEN-MODERATE RESISTANCE SC ×3 (07:33→16:36)
[2025-02-19 07:42] LABS: Glucose - Point of Care 123 mg/dl (70-99)
[2025-02-19] MEDS: ZETIA 10 MG PO (08:15)
[2025-02-19] MEDS: NEURONTIN 200 MG PO ×3 (08:15→22:57)
[2025-02-19] MEDS: B COMPLEX w/VITAMIN C 1 CAPLET PO (08:15)
[2025-02-19] MEDS: ERYTHROMYCIN 0.5% OPHTHALMIC OINTMENT 1 APPLIC OPHTH (08:15)
[2025-02-19 08:26] LABS: Glycohemoglobin (HgbA1c) 5.2 % (4.0-5.9)
[2025-02-19] MEDS: COREG 3.125 MG PO (08:43)
[2025-02-19] MEDS: ZESTRIL 2.5 MG PO (08:44)
[2025-02-19] MEDS: NON-FORMULARY ITEM 5 MG PO ×2 (08:45→19:23)
--- NOTE | 2025-02-19 08:46 | W.PN.URO.CBU ---
Today's Communication / Plan
-
Stoma eval
Clear liquids
Pain control
PT/OT for early ambulation
Assessment / Plan
-
74F with bladder cancer and colon cancer
s/p radical cystectomy, pelvic exenteration, R hemicolectomy, ileal conduit urinary diversion 02/18/25
POD #1
- External urostomy appearance is dark and some concern for ischemia. To consider bedside cystoscopy this afternoon to evaluate stoma below fascia
D/C IV fluids
Incentive spirometry
Encourage ambulation/out of bed to chair
PT/OT consult
Bowel recovery:
- Clear liquids today pending stoma eval
- Methylnaltrexone
- Bowel regimen and diet per colorectal
Drains:
- Ureteral stents to remain in place for 7-10 days
- Urostomy bag to gravity
- АЛЕКСАНДР drain to bulb suction - to be removed prior to discharge when outputs low
Pain control:
- Switch to standing PO tylenol
- Gabapentin 200mg PO TID
- Dilaudid RECEIVER BULK SYSTEM which she is using minimally so far
Wound/ostomy consult for stoma care and teaching
Case management consult
Diagnosis
-
Date of Service: February 19, 2025
-
Patient Diagnosis:
Bladder cancer
Colon cancer
Post Op s/p radical cystectomy, pelvic exenteration, R hemicolectomy, ileal conduit urinary diversion 02/18/25
Subjective
-
Pain well controlled overnight
Tolerating clears
No Flatus
Objective
-
Vital Signs
Temp Pulse Resp BP Pulse Ox
97.9 F 81 13 117/65 97
02/19/25 03:07 02/19/25 08:44 02/19/25 06:30 02/19/25 08:44 02/19/25 06:30
Intake and Output
02/18/25 02/19/25 02/20/25
06:59 06:59 06:59
Intake Total 2120 / 2120
Output Total 1500 / 1500
Balance 620 / 620
Intake:
Oral fluids 120 / 120
IV fluids (Total) 1700 / 1700
NORMOSOL 1700 / 1700
IV piggybacks 300 / 300
Output:
Drain Output (Total) 670 / 670
Left Abdomen Cory-Barraza 670 / 670
Urine, Pollock 250 / 250
Suprapubic output 5 / 5
Urostomy output 575 / 575
Laboratory Results
02/19/25 03:35
02/19/25 03:35
Physical Exam
-
General - well developed, well nourished, no acute distress
Chest - clear
Abdomen - soft, non-tender
Ostomy dark, productive light red urine
Skin - warm & dry with no rash
Neuro - AOx3, no motor deficits
Extremities - no clubbing, no cyanosis, no edema
Incision - clean, dry
Dressing - clean, dry, intact
--- NOTE | 2025-02-19 09:02 | W.PN.HOSP.TC ---
Today's Communication/Plan
-
Urology reeval.
Assessment / Plan
Assessment / Plan
Physical exam:
General: Acutely ill
HEENT: Normocephalic, Atraumatic and Moist Mucous Membranes, left eye redness and no discharge.
Respiratory: Clear to Auscultation; Negative Wheezes, Rales or Rhonchi
Cardiac: Regular Rhythm and S1/S2
GI: Soft, Nontender and Nondistended. Postop urostomy in place
Musculoskeletal: No Clubbing, No Cyanosis and No Edema
Neuro: Awake, Alert and Oriented, no neurological deficit
Psych: Calm
A/P:
Adenocarcinoma and urothelial cancer:
Status post exp laparotomy, adhesions lysis, right hemicolectomy, hysterectomy, radical cystectomy, pelvic exenteration, pelvic lymph node dissection, ileal conduit urinary diversion.
Colorectal surgery and urology following
Pain control
Plan for cystoscopy to evaluate stoma below fascia by urology today
Acute blood loss anemia:
Blood transfusion as needed
Monitor hemoglobin closely
Chronic HFrEF:
Given IV fluid but monitor volume status closely
Monitor daily weights and ins and outs
Continue oral diuretics
Continue GDMT
Paroxysmal A-fib:
Continue rate control
Anticoagulation when cleared by surgeons
Diabetes mellitus type 2:
Monitor sugars closely
Insulin sliding scale
Left eye redness:
Less likely infection and rather dryness
Continue eyedrop
Hypertension:
Continue antihypertensive
Hyperlipidemia:
Continue home statin and ezetimibe
Hypothyroidism:
Continue thyroid replacement
Anxiety:
Continue Xanax scheduled doses
DVT prophylaxis:
Lovenox SQ
CODE STATUS:
Full code
Total time spent on today's encounter was 52 minutes which included time spent in counseling the patient/family regarding diagnosis and treatment plan as listed above, goals of care, and symptom management. Case was discussed with nursing staff,
specialists, and care coordinators/case management. All labs and imaging personally reviewed by me. Remainder the time spent in detailed review of previous records, lab data, imaging, and other medical provider documentation.
Anticipated Discharge: > 48 hours
Subjective/Interval History
-
Date of Service: February 19, 2025
Patient feels pain is well-controlled overall. Tolerating clear liquid diet. No flatus. No nausea or vomiting. Afebrile
Objective Data
-
Labs:
Laboratory Results
02/19/25
03:35
WBC 12.2 H
Hgb 10.6 L D
Hct 31.4 L
Plt Count 249
Sodium 135
Potassium 4.3
Chloride 106
Carbon Dioxide 26
BUN 19 H
Creatinine 0.7
Glucose 119 H
Calcium 7.9 L
Vital Signs:
Vital Signs
Temp Pulse Resp BP Pulse Ox
97.9 F 81 13 117/65 97
02/19/25 03:07 02/19/25 08:44 02/19/25 06:30 02/19/25 08:44 02/19/25 06:30
I&O
02/18/25 02/19/25 02/20/25
06:59 06:59 06:59
Intake Total 2120 / 2120
Output Total 1500 / 1500
Balance 620 / 620
--- NOTE | 2025-02-19 09:17 | W.PN.CRS1 ---
Today's Communication / Plan
-
remain on clears
possible cystoscopy into stoma by urology later today
pain control
Assessment/Plan
-
POD#1 Exploratory laparotomy, right hemicolectomy, Radical cystectomy, pelvic exenteration, pelvic lymph node dissection, ileal conduit urinary diversion
Vitals normal
WBC: 12.2, Hgb 10.6, Creatinine: 0.7
Urostomy output: 575ml
Pollock output: 250ml
Drain: 670ml
-Stoma dark but warm. Discussed with urology. They may perform a cystoscope later today at bedside to evaluate.
-OOB as tolerated
-On lovenox for DVT prophylaxis
-Remains on clears
-Pollock per urology
-OR pathology pending
-Pain control: Dilaudid PLANNING OFFICIAL, Tylenol 650mg po q4
-Wound RN for stoma care
Subjective Data
Procedure
02/18/2025- Exploratory laparotomy, right hemicolectomy, Radical cystectomy, pelvic exenteration, pelvic lymph node dissection, ileal conduit urinary diversion
Subjective Data
Date of Service: February 19, 2025
Patient states she feels okay. Her pain is controlled. She has no nausea or vomiting. She is hungry and thirsty.
Objective Data
-
Vital Signs
Temp Pulse Resp BP Pulse Ox
97.9 F 81 13 117/65 97
02/19/25 03:07 02/19/25 08:44 02/19/25 06:30 02/19/25 08:44 02/19/25 06:30
Intake & Output
02/18/25 02/19/25 02/20/25
06:59 06:59 06:59
Intake Total 2120 / 2120
Output Total 1500 / 1500
Balance 620 / 620
Intake:
Oral fluids 120 / 120
IV fluids (Total) 1700 / 1700
NORMOSOL 1700 / 1700
IV piggybacks 300 / 300
Output:
Drain Output (Total) /
Left Abdomen Cory-Barraza /
Urine, Pollock 250 / 250
Suprapubic output 5 / 5
Urostomy output 575 / 575
Lab Results
02/19/25 03:35
02/19/25 03:35
Physical Exam
-
General: No Acute Distress and AOx3
Abdomen: Soft, Non Distended, Non Tender and Other (urostomy warm but dark, some urine in bag)
Wound: Dressing in Place
--- NOTE | 2025-02-19 09:32 | WOUNDNOTE ---
[facility] RN Note: Patient s/p Ileal conduit. Isabel 1 piece #[id number] intact. Stoma dark red with stents. Patient and nurse Leena stated the urologist is planning to scope her stoma d/t darkish appearance. Sacral skin intact. Patient ambulated to chair with
air chair cushion by PT/OT team. Ostomy supplies and urostomy teaching folder (Isabel wafer # [id number], Reba seals and Argyle pouch # [id number]) left at bedside . Stoma flush. t/C SPD and ordered Isabel 1 piece pouch # [id number]. Discussed with RN
Leena. Skin on sacrum intact. Skin on heels blanchable mild red and intact. Instructed patient how to empty pouch and connect and disconnect to straight drainage. Instructed patient how to clean overnight bedside bag. Will plan for appliance change
teaching on Saturday.
--- NOTE | 2025-02-19 10:08 | WOUNDNOTE ---
Patient gave verbal permission to order Libby ostomy secure starter kit.
[2025-02-19 11:47] LABS: Glucose - Point of Care 134 mg/dl (70-99)
--- NOTE | 2025-02-19 12:00 | PTCARENOTE ---
Reassessed the patient, pt was OOB to chair with PT and OT, tolerated activity. Continue draining Left Abdomen АЛЕКСАНДР drain Q2hrs, sanguineous but less bloody.
[2025-02-19] MEDS: TYLENOL 650 MG PO ×3 (12:21→19:23)
[2025-02-19] MEDS: POLYTRIM OPHTHALMIC SOLUTION 2 DROP LEFT EYE ×3 (12:22→22:57)
--- NOTE | 2025-02-19 13:00 | PTCARENOTE ---
Noticed patient's BP trending down, made rn orthopaedics aware and MD ordered IV bolus x1.
[2025-02-19] MEDS: LR 500 IV ×2 (13:09→15:29)
--- NOTE | 2025-02-19 13:25 | CM ---
POD #1 Right hemicolectomy; cystectomy with creation of ileal conduit and hysterectomy. Discharge POC: Therapy rec today is SNF vs home PT. Will await further evals for determination.
--- NOTE | 2025-02-19 14:37 | W.PN.INTV ---
Today's Communication / Plan
Recommendations
- Hold Coreg, lisinopril and Lasix, give 500 mL LR bolus
Assessment
-
Patient is a 74-year-old female with new diagnosis of adenocarcinoma as well as urothelial cancer, is s/p exploratory laparotomy, adhesion lysis, right hemicolectomy, hysterectomy, radical cystectomy, pelvic exenteration, pelvic lymph node
dissection, ileal conduit urinary diversion, by vascular surgery service, POD #1
Continue observation following procedure
Follow neurovascular checks per protocol
Follow BP monitoring and parameters as set by primary team
Cardiac history reviewed, cardiac status well compensated
Monitor on telemetry
Low blood pressure noted after morning medications, Lisinopril/Coreg. Give LR 500 ml bolus, hold BP meds for now.
Concern for ischemia of ostomy, planned for cystoscopy later today.
Pain control per protocol
RASS goal 0
No prior history of pulmonary disease, remote smoking history during college time. Reported history of smoking pot in the past, quit in the past.
CXR reviewed indicating no acute disease
No prior PFTs for review
Encouraged IS
Diet advancement per protocol
Aspiration precautions
GI prophylaxis: None
Cr at baseline, follow UO
Critical I/Os
Void trials
Replete electrolytes as needed
No signs/symptoms suspicious for infectious etiology at this time
Will observe off antibiotics for now
Follow temperatures/CBC
Hb and platelets, monitor postoperatively
DVT prophylaxis: Subcu Lovenox
Other medical diagnoses:
- Nonischemic cardiomyopathy, ejection fraction now improved to 50 to 55%, left heart catheterization without coronary artery disease in 2016
- History of mitral valve replacement with bioprosthetic valve, residual moderate mitral regurgitation
- Pulmonary hypertension, pulmonary artery systolic pressure 38 with moderate to severe tricuspid regurgitation, Group II PH with history of mitral valve disease
- History of AV block, status post pacemaker placement
- Paroxysmal atrial fibrillation
- Hypothyroidism
- Hyperlipidemia
- Diabetes
Critical Care time 43 mins -- The patient is admitted for acute critical illness for the treatment of vital organ failure and/or prevention of further life-threatening conditions. Total care includes time spent in review of history, physical exam,
medications, hemodynamic/ventilator parameters, laboratory data, imaging and discussion with house staff, pharmacy, respiratory therapy, topper press operator automatic, and nursing.
Data:
CXR 01/2025: Unremarkable.
CT C/A/P 12/2024:
CHEST
1. Mild cardiomegaly with moderate enlargement of the left atrial and ventricular chambers.
2. Previous mitral valve replacement.
3. Left-sided cardiac pacemaker in place.
4. Minimal bilateral pleural effusions.
5. Mild scarring in both lower lungs.
ABDOMEN and PELVIS:
1. Large polypoid intraluminal masses in the URINARY BLADDER suggesting EXTENSIVE UROTHELIAL CARCINOMA. A large amount of intraluminal blood clot is a less likely diagnostic possibility given that the polypoid masses appear to demonstrate
enhancement.
2. 2.5 cm mucosal-based mass in the PROXIMAL ASCENDING COLON which was recently biopsied and is likely COLON ADENOCARCINOMA.
3. Multiple uterine leiomyoma.
4. Small bubbles of extraluminal air adjacent to the 3rd portion of the duodenum (probably secondary to recent duodenal biopsy).
5. Severe discogenic degenerative disease at L5/S1.
6. Severe bilateral facet joint arthrosis at L4/L5 with associated grade 1 anterolisthesis.
Colonoscopy 12/2024: Ileocecal valve mass biopsy, invasive colonic adenocarcinoma, moderately differentiated.
TURBT 12/2024: Bladder right wall biopsy, high-grade papillary urothelial carcinoma with necrosis, invading into lamina propria
ECHO 12/2024: 1. Compared to a prior transthoracic echocardiogram study from December 2023 which was reviewed, Ejection fraction has improved from 40-45% to 50-55%.
2. Normal left ventricular size. Mild concentric left ventricular hypertrophy. Abnormal (paradoxical) septal motion. Normal systolic function. Ejection fraction is 50 to 55 % by visual assessment.
3. #29 Bovine magna bioprosthetic mitral valve replacement with peak/mean gradients of 8/4 mmHg. Moderate mitral regurgitation.
4. Moderate to severe tricuspid regurgitation. Estimated pulmonary artery pressure of 38 mmHg assuming a right atrial pressure of 3 mmHg.
Lexiscan 05/2023: No significant ischemia
[facility] 09/2015: PCWP 30-46, PA 59/32. Normal coronary arteries.
Subjective Dataa
Subjective Data
Date of Service:
Date of Service: February 19, 2025
Subjective:
Patient comfortably sitting in chair in no acute distress
Review of Systems
Genitourinary: Other (Other than expected post op pain, all 14 systems reviewed and negative except as stated above in the history of present illness.)
Objective Data
Data Reviewed
Vital Signs / I&O / Oxygen:
Vital Signs
Temp Pulse Resp BP Pulse Ox
98.1 F 71 20 99/57 96
02/19/25 11:20 02/19/25 11:00 02/19/25 11:00 02/19/25 11:00 02/19/25 11:00
Intake and Output
02/18/25 02/19/25 02/20/25
06:59 06:59 06:59
Intake Total 2120 / 2220 800 / 800
Output Total 1500 / 1500 375 / 375
Balance 620 / 720 425 / 425
SaO2 96
Nasal Cannula flow liters per 2
minute
Physical Exam
General: Comfortable
HEENT: Normocephalic
Cardiovascular: S1-S2
Respiratory: Clear
GI: Soft and Other (No bowel sounds, mild sanguinous discharge noted in ostomy)
Neurology: Awake, Alert and Oriented
Skin: Warm
Labs/Micro/Reports
Lab Data
02/19/25 03:35
02/19/25 03:35
[2025-02-19 15:28] LABS: Hematocrit 28.2 % (37.0-47.0); Hemoglobin 9.3 g/dL (12.0-16.0)
[2025-02-19] MEDS: LR 1000 IV ×2 (15:28→17:29)
--- NOTE | 2025-02-19 16:00 | PTCARENOTE ---
Reassessed the patient, continue giving additional IV Bolus for low BP, patient asymptomatic.
[2025-02-19 16:40] LABS: Glucose - Point of Care 119 mg/dl (70-99)
--- NOTE | 2025-02-19 17:24 | WOUNDNOTE ---
[facility] RN note: ronaldo Hall, spoke with Cherelle and ordered patient an ostomy starter kit.
[2025-02-19] MEDS: LOVENOX 40 MG SC (17:38)
--- NOTE | 2025-02-19 17:47 | W.PN.UPDATE ---
Update Note
Progress Note Update
Hypotension this afternoon which is asymptomatic
Patient appears well and worked with PT today
АЛЕКСАНДР drain with serous/pink output
HGB drifted downward and getting IVF bolus/maintenance
BP meds held
Repeat HGB this evening
Trend I/O
No plan for procedures at this time
Trend urostomy appearance with superficial ischemia
maintain ureteral stents
--- NOTE | 2025-02-19 18:00 | PTCARENOTE ---
Per Dr. Marie at bedside, no plan to scope Urostomy site or to have surgery. Urostomy color assessment unchanged from previous.
--- NOTE | 2025-02-19 21:00 | PTCARENOTE ---
Assumed care of patient at 1900. AAOx3, anxious/drowsy @ times. AV/V paced on the monitor. Patient on RA satting 95%. Lungs diminshed in the bases bilaterally. Abd soft/round distended and tender. + bowel sounds. Patient w/ abdominal pain 5/10 when
moving - reports minimal pain while at rest. ATG JAVA DEVELOPER pump connected to RFA 18 as ordered - see MAY. RUQ urostomy w/ blood tinged/occasionally bloody drainage. Stoma dark, but warm/soft to touch. LLQ АЛЕКСАНДР drain with serosang drainage. Midline
incision/aquacell w/ small amts of old drainage. 18RFA w/ LR @ 30mls/hr & ATG JAVA DEVELOPER pump. 18LF capped.
[2025-02-19 22:35] LABS: Hematocrit 29.2 % (37.0-47.0); Hemoglobin 9.6 g/dL (12.0-16.0)
[2025-02-19] MEDS: LIPITOR 40 MG PO (22:57)
[2025-02-19 22:58] LABS: Blood Urea Nitrogen 16 mg/dl (7-17); Calcium 8.0 mg/dl (8.4-10.2); Carbon Dioxide 25 mmol/L (22-30); Chloride 106 mmol/L (98-107); Estimated Creatinine Clearance 55 ml/min; Glucose 186 mg/dl (70-99); Potassium 4.5 mmol/L (3.5-5.1); Sodium 129 mmol/L (135-145); eGFR > 60.00
[2025-02-19] MEDS: FLEXBUMIN 100 IV (22:58)
[2025-02-19 23:13] LABS: Glucose - Point of Care 190 mg/dl (70-99)
[2025-02-19] MEDS: NOVOLOG FLEXPEN 1 UNITS SC (23:24)
[2025-02-20] VITALS (54 sets, daily range): BP systolic 82–141; BP diastolic 39–77; BMI 28.9
[2025-02-20] MEDS: XANAX PO ×2 (00:06→16:37)
[2025-02-20] MEDS: TYLENOL 650 MG PO ×5 (00:12→21:15)
[2025-02-20] MEDS: NSS 500 IV (00:45)
--- NOTE | 2025-02-20 01:00 | PTCARENOTE ---
Patient w/ multiple BP readings w/ MAP <60 and SBP <90 - asymptomatic. ADVERTISING OPERATIONS MANAGER notified. Albumin ordered and administered - see MAY. After albumin administration, patient's BP remained soft - ADVERTISING OPERATIONS MANAGER notified - 500ml bolus NSS ordered and administered -
see MAY. 2L NC applied d/t patient's POX occasionally dropping to 88 while sleeping - POX improved to 95-98 on 2L NC.
[2025-02-20 01:29] LABS: Glucose - Point of Care 147 mg/dl (70-99)
[2025-02-20] MEDS: SYNTHROID 25 MCG PO (05:01)
[2025-02-20 05:28] LABS: Hematocrit 25.2 % (37.0-47.0); Hemoglobin 8.0 g/dL (12.0-16.0); Mean Corp Hgb Conc. 31.7 g/dL (33.0-37.0); Mean Corpuscular Volume 82.6 fL (81.0-99.0); Nucleated Red Blood Cells % 0 %; Platelet Count 206 10^3/uL (130-400); Red Cell Dist. Width 18.8 % (11.5-14.5)
[2025-02-20 05:48] LABS: Albumin 2.3 g/dl (3.5-5.0); Blood Urea Nitrogen 13 mg/dl (7-17); Calcium 7.8 mg/dl (8.4-10.2); Carbon Dioxide 28 mmol/L (22-30); Chloride 109 mmol/L (98-107); Estimated Creatinine Clearance 55 ml/min; Glucose 108 mg/dl (70-99); Magnesium 2.2 mg/dl (1.6-2.3); Potassium 4.1 mmol/L (3.5-5.1); Sodium 134 mmol/L (135-145); eGFR > 60.00
[2025-02-20] MEDS: FLEXBUMIN 100 IV (05:53)
--- NOTE | 2025-02-20 06:18 | PTCARENOTE ---
Patient's BP improved after 500ml bolus of NSS, but remains soft. GLASS TOUGHENING OPERATOR aware. Patient remains asymptomatic. Albumin ordered and administered - see MAY.
--- NOTE | 2025-02-20 07:27 | W.PN.INTV ---
Today's Communication / Plan
Recommendations
- Continue to hold Coreg, lisinopril and furosemide
- Continue MEDICAL HEALTH RESEARCHER
- Await further recommendation from urology/colorectal surgery service
Assessment
-
Patient is a 74-year-old female with new diagnosis of adenocarcinoma as well as urothelial cancer, is s/p exploratory laparotomy, adhesion lysis, right hemicolectomy, hysterectomy, radical cystectomy, pelvic exenteration, pelvic lymph node
dissection, ileal conduit urinary diversion, by vascular surgery service, POD #2
Continue observation following procedure
Follow neurovascular checks per protocol
Follow BP monitoring and parameters as set by primary team
Cardiac history reviewed, cardiac status well compensated
Monitor on telemetry
Low blood pressure noted after morning medications, Lisinopril/Coreg. Responded well to IV fluid resuscitation as well as IV albumin overnight.
Concern for ischemia of ostomy, urology service on case, anticipate cystoscopy within next 24 hours.
Pain control per protocol
RASS goal 0
No prior history of pulmonary disease, remote smoking history during college time. Reported history of smoking pot in the past, quit in the past.
CXR reviewed indicating no acute disease
No prior PFTs for review
Encouraged IS
Diet advancement per protocol
Aspiration precautions
GI prophylaxis: None
Cr at baseline, follow UO
Critical I/Os
Void trials
Replete electrolytes as needed
No signs/symptoms suspicious for infectious etiology at this time
Will observe off antibiotics for now
Follow temperatures/CBC
Hb and platelets, monitor postoperatively
DVT prophylaxis: Subcu Lovenox
Other medical diagnoses:
- Nonischemic cardiomyopathy, ejection fraction now improved to 50 to 55%, left heart catheterization without coronary artery disease in 2016
- History of mitral valve replacement with bioprosthetic valve, residual moderate mitral regurgitation
- Pulmonary hypertension, pulmonary artery systolic pressure 38 with moderate to severe tricuspid regurgitation, Group II PH with history of mitral valve disease
- History of AV block, status post pacemaker placement
- Paroxysmal atrial fibrillation
- Hypothyroidism
- Hyperlipidemia
- Diabetes
Critical Care time 42 mins -- The patient is admitted for acute critical illness for the treatment of vital organ failure and/or prevention of further life-threatening conditions. Total care includes time spent in review of history, physical exam,
medications, hemodynamic/ventilator parameters, laboratory data, imaging and discussion with house staff, pharmacy, respiratory therapy, ruby on rails software developer, and nursing.
Data:
CXR 01/2025: Unremarkable.
CT C/A/P 12/2024:
CHEST
1. Mild cardiomegaly with moderate enlargement of the left atrial and ventricular chambers.
2. Previous mitral valve replacement.
3. Left-sided cardiac pacemaker in place.
4. Minimal bilateral pleural effusions.
5. Mild scarring in both lower lungs.
ABDOMEN and PELVIS:
1. Large polypoid intraluminal masses in the URINARY BLADDER suggesting EXTENSIVE UROTHELIAL CARCINOMA. A large amount of intraluminal blood clot is a less likely diagnostic possibility given that the polypoid masses appear to demonstrate
enhancement.
2. 2.5 cm mucosal-based mass in the PROXIMAL ASCENDING COLON which was recently biopsied and is likely COLON ADENOCARCINOMA.
3. Multiple uterine leiomyoma.
4. Small bubbles of extraluminal air adjacent to the 3rd portion of the duodenum (probably secondary to recent duodenal biopsy).
5. Severe discogenic degenerative disease at L5/S1.
6. Severe bilateral facet joint arthrosis at L4/L5 with associated grade 1 anterolisthesis.
Colonoscopy 12/2024: Ileocecal valve mass biopsy, invasive colonic adenocarcinoma, moderately differentiated.
TURBT 12/2024: Bladder right wall biopsy, high-grade papillary urothelial carcinoma with necrosis, invading into lamina propria
ECHO 12/2024: 1. Compared to a prior transthoracic echocardiogram study from December 2023 which was reviewed, Ejection fraction has improved from 40-45% to 50-55%.
2. Normal left ventricular size. Mild concentric left ventricular hypertrophy. Abnormal (paradoxical) septal motion. Normal systolic function. Ejection fraction is 50 to 55 % by visual assessment.
3. #29 Bovine magna bioprosthetic mitral valve replacement with peak/mean gradients of 8/4 mmHg. Moderate mitral regurgitation.
4. Moderate to severe tricuspid regurgitation. Estimated pulmonary artery pressure of 38 mmHg assuming a right atrial pressure of 3 mmHg.
Lexiscan 05/2023: No significant ischemia
[facility] 09/2015: PCWP 30-46, PA 59/32. Normal coronary arteries.
Subjective Dataa
Subjective Data
Date of Service:
Date of Service: February 20, 2025
Subjective:
Patient comfortable lying in bed in no acute distress.
Review of Systems
Genitourinary: Other (All 14 systems reviewed and negative except as stated above in the history of present illness.)
Objective Data
Data Reviewed
Vital Signs / I&O / Oxygen:
Vital Signs
Temp Pulse Resp BP Pulse Ox
98.2 F 70 19 92/46 99
02/20/25 05:02 02/20/25 06:00 02/20/25 06:00 02/20/25 06:00 02/20/25 06:00
Intake and Output
02/19/25 02/20/25 02/21/25
06:59 06:59 06:59
Intake Total 2120 / 2220 4445 / 4445
Output Total 1500 / 1500 2760 / 2760
Balance 620 / 720 1685 / 1685
SaO2 99
Nasal Cannula flow liters per 2
minute
Physical Exam
General: Comfortable
HEENT: Normocephalic
Cardiovascular: S1-S2
Respiratory: Clear
GI: Other (No bowel sounds, mild sanguinous discharge noted in ostomy, mildly tender)
Neurology: Awake, Alert and Oriented
Skin: Warm
Labs/Micro/Reports
Lab Data
02/20/25 04:57
02/20/25 04:57
[2025-02-20] MEDS: NOVOLOG FLEXPEN-MODERATE RESISTANCE SC (08:15)
[2025-02-20 08:25] LABS: Glucose - Point of Care 122 mg/dl (70-99)
--- NOTE | 2025-02-20 08:50 | W.PN.URO.CBU ---
Today's Communication / Plan
-
OOB and ambulating
Clear liquids - diet per Colorectal
PRBC x1 this AM
Trend H/H
Assessment / Plan
-
74F with bladder cancer and colon cancer
02/18/25: s/p radical cystectomy, pelvic exenteration, R hemicolectomy, ileal conduit urinary diversion
POD #2
- External urostomy appearance is dark w/ some concern for ischemia - observation
Incentive spirometry
Encourage ambulation/out of bed to chair
PT/OT consult - consider rehab on discharge (patient lives alone)
Bowel recovery:
- Clear liquids
- Methylnaltrexone
- Bowel regimen and diet per Colorectal
Drains:
- Ureteral stents to remain in place x7-10 days
- Urostomy bag to gravity
- АЛЕКСАНДР drain to bulb suction - to be removed prior to discharge when outputs low
Pain control:
- PO analgesics
- Gabapentin 200mg PO TID
WOCN consult for stoma care and teaching
Case management consult for rehab
Diagnosis
-
Date of Service: February 20, 2025
-
Patient Diagnosis:
Bladder cancer
Colon cancer
02/18/25: s/p radical cystectomy, pelvic exenteration, R hemicolectomy, ileal conduit urinary diversion
Subjective
-
Feels well.
Zoran abdominal pain.
SBPs soft o/n, but MAPs normal.
Good UOP per urostomy.
Objective
-
Vital Signs
Temp Pulse Resp BP Pulse Ox
97.9 F 90 14 93/68 98
02/20/25 08:00 02/20/25 09:00 02/20/25 09:00 02/20/25 09:00 02/20/25 09:29
Intake and Output
02/19/25 02/20/25 02/21/25
06:59 06:59 06:59
Intake Total 2120 / 2220 4445 / 4445 150 / 150
Output Total 1500 / 1500 2760 / 2760 140 / 140
Balance 620 / 720 1685 / 1685 10 / 10
Intake:
Oral fluids 120 / 120 1200 / 1200 120 / 120
IV fluids (Total) 1700 / 1800 745 / 745 30 / 30
Lr 1,000 ml @ 30 mls/hr IV . 545 / 545
Q24H ALVARADO Rx#:[id number]
NORMOSOL 1700 / 1800 200 / 200
IV piggybacks 300 / 300 2500 / 2500
Output:
Drain Output (Total) 670 / 670 675 / 675
Left Abdomen Cory-Barraza 670 / 670 675 / 675
Urine, Pollock 250 / 250
Suprapubic output 5 / 5
Urostomy output 575 / 575 2085 / 2085 140 / 140
Laboratory Results
02/20/25 04:57
02/20/25 04:57
Physical Exam
-
General - well developed, well nourished, no acute distress
Abdomen - soft, non-tender, non-distended, no incisional pain or distention, RLQ urostomy w/ chantal-colored UOP, bilateral stents in place, stoma purple
Genitalia - normal
Skin - warm & dry with no rash
Neuro - AOx3, no motor deficits
Extremities - no clubbing, no cyanosis, no edema
Incision - clean, dry
Dressing - clean, dry, intact
Care Review
Data Reviewed
Discussed with: Hospitalist and Nursing
Total Time Spent with Patient (in minutes): 40
[2025-02-20] MEDS: XANAX 0.5 MG PO ×3 (09:14→21:15)
[2025-02-20] MEDS: ZETIA 10 MG PO (09:14)
[2025-02-20] MEDS: NEURONTIN 200 MG PO ×3 (09:14→21:15)
[2025-02-20] MEDS: NON-FORMULARY ITEM 5 MG PO ×2 (09:15→21:15)
[2025-02-20] MEDS: POLYTRIM OPHTHALMIC SOLUTION 2 DROP LEFT EYE ×4 (09:16→21:14)
[2025-02-20] MEDS: B COMPLEX w/VITAMIN C 1 CAPLET PO (09:46)
--- NOTE | 2025-02-20 10:21 | W.PN.UPDATE ---
Update Note
Progress Note Update
Stoma continues to be dark POD#2 - concern for ischemia.
Otherwise good UOP w/ normal renal function.
Will consider bedside flexible cystoscopy w/n next 24 hrs - to determine if observation vs. stoma revision is indicated.
D/w Dr. Todd.
[2025-02-20] MEDS: RELISTOR 4 MG SC (10:35)
--- NOTE | 2025-02-20 11:00 | PTCARENOTE ---
S/P complete CHG bath. Incontinent for large amount of liquid bilious stool. Pt states no bowel control. Optifoam dressing removed d/t soilage. She is demonstrating proper use of IS to 750ml's after several guided instructions on proper use. PRBC's
infusing without difficulty. Urostomy w/ureteral stents draining bloody urine output. LLQ АЛЕКСАНДР drain to bulb suction with 100ml's sanguanous drainage. Abdomen distended. Tolerating full liquid diet. Pt repeating herself now on several occasions. Safe
environment maintained.
--- NOTE | 2025-02-20 11:32 | W.PN.HOSP.TC ---
Today's Communication/Plan
-
Blood transfusion. Possible cystoscopy over the next 24 hours.
Assessment / Plan
Assessment / Plan
Physical exam:
General: Acutely ill
HEENT: Normocephalic, Atraumatic and Moist Mucous Membranes, left eye redness and no discharge.
Respiratory: Clear to Auscultation; Negative Wheezes, Rales or Rhonchi
Cardiac: Regular Rhythm and S1/S2
GI: Soft, Nontender and Nondistended. Postop urostomy in place
Musculoskeletal: No Clubbing, No Cyanosis and No Edema
Neuro: Awake, Alert and Oriented, no neurological deficit
Psych: Calm
A/P:
Adenocarcinoma and urothelial cancer:
Status post exp laparotomy, adhesions lysis, right hemicolectomy, hysterectomy, radical cystectomy, pelvic exenteration, pelvic lymph node dissection, ileal conduit urinary diversion.
Colorectal surgery and urology following
Pain control
Urology noticed possible flexible cystoscopy within the next 24 hours to determine if observation versus stoma revision is indicated
Acute blood loss anemia:
Blood transfusion today again and as needed
Monitor hemoglobin closely
Chronic HFrEF:
Monitor volume status closely
Monitor daily weights and ins and outs
Continue oral diuretics
Continue GDMT
Paroxysmal A-fib:
Continue rate control
Anticoagulation when cleared by surgeons
Diabetes mellitus type 2:
Monitor sugars closely
Insulin sliding scale
Left eye redness:
Less likely infection and rather dryness
Continue eyedrop
Hypertension:
Continue antihypertensive
Hyperlipidemia:
Continue home statin and ezetimibe
Hypothyroidism:
Continue thyroid replacement
Anxiety:
Continue Xanax scheduled doses
DVT prophylaxis:
Lovenox SQ
CODE STATUS:
Full code
Total time spent on today's encounter was 52 minutes which included time spent in counseling the patient/family regarding diagnosis and treatment plan as listed above, goals of care, and symptom management. Case was discussed with nursing staff,
specialists, and care coordinators/case management. All labs and imaging personally reviewed by me. Remainder the time spent in detailed review of previous records, lab data, imaging, and other medical provider documentation.
Anticipated Discharge: > 48 hours
Subjective/Interval History
-
Date of Service: February 20, 2025
Patient with generalized fatigue. Pain tolerable. No chest pain or shortness of breath. Afebrile
Objective Data
-
Labs:
Laboratory Results
02/20/25
04:57
WBC 13.4 H
Hgb 8.0 L
Hct 25.2 L
Plt Count 206
Sodium 134 L
Potassium 4.1
Chloride 109 H
Carbon Dioxide 28
BUN 13
Creatinine 0.7
Glucose 108 H
Calcium 7.8 L
Vital Signs:
Vital Signs
Temp Pulse Resp BP Pulse Ox
98.7 F 71 20 99/44 93
02/20/25 09:59 02/20/25 09:59 02/20/25 09:59 02/20/25 09:59 02/20/25 09:59
I&O
02/19/25 02/20/25 02/21/25
06:59 06:59 06:59
Intake Total 2120 / 2220 4445 / 4445 420 / 420
Output Total 1500 / 1500 2760 / 2760 240 / 240
Balance 620 / 720 1685 / 1685 180 / 180
[2025-02-20 12:05] LABS: Glucose - Point of Care 217 mg/dl (70-99)
--- NOTE | 2025-02-20 13:22 | W.PN.CRS1 ---
Addendum entered and electronically signed by Donny Todd MD 02/20/25 15:38:
No issues overnight or this morning. Tolerating fulls. Pain controlled. Passing flatus and had BMs (a few episodes of incontinence). Good urine output from ileal conduit
AF, normal HR, low BPs requiring fluid boluses, ABD soft, moderately distended with subtle tympany, appropriately tender near midline incision; АЛЕКСАНДР�serosanguineous; ileal conduit purple with sloughing mucosa
WBC 13.4 from 12.2, Hb 8.0 from 9.6, CR 0.7, UOP 1.9 L
�Keep fulls; low threshold to de-escalate diet due to abdominal distention; will obtain AXR to rule out ileus
�Pain control with Dilaudid CHIEF ACCOUNTANT
�Anemia likely related to hemodilution and operative blood loss; recommend pRBC; due to cardiac history, recommend maintaining Hb greater than 8.0
�Concern for appearance of urostomy; discussed with Dr. Gonzales; will continue expectant management; may be related to mild ischemia to the subcutaneous portion of the urostomy, which would improve with time; if patient worsens hemodynamically, would
keep ischemic bowel on the differential
�Continue DVT PPx with Lovenox
� Remainder of care per urology and hospitalist
Original Note:
Today's Communication / Plan
-
xr abd
Assessment/Plan
-
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
POD#2 Exploratory laparotomy, right hemicolectomy, Radical cystectomy, pelvic exenteration, pelvic lymph node dissection, ileal conduit urinary diversion
Afebrile, bp's low but stable
Acute blood loss anemia with hgb drop to 8.0 from 9.6 (s/p 4 units on 02/18)
Mild leukocytosis
Distention present on exam but passing flatus/loose stools and denies n/v with FLD
Urostomy output: 2125ml. Stoma dark/concern for ?ischemia
Drain: 665 ml
Plan:
-Transfuse one unit of prbc's today
-Repeat labs in am
-Stoma management as per urology
-OOB as tolerated
-Remains on fulls, will check abd XR given distention
-Pollock per urology
-OR pathology pending
-Pain control: Dilaudid CHIEF ACCOUNTANT, Tylenol 650mg po q4
-Wound RN for stoma care
-On lovenox for DVT prophylaxis
Subjective Data
Procedure
02/18/2025- Exploratory laparotomy, right hemicolectomy, Radical cystectomy, pelvic exenteration, pelvic lymph node dissection, ileal conduit urinary diversion
Subjective Data
Date of Service: February 20, 2025
Pt seen and examined at bedside with Dr. Todd. Denies n/v. Passing flatus and loose stools. Not much bowel control. Denies much pain and reports feeling overall like she is improving.
Objective Data
-
Vital Signs
Temp Pulse Resp BP Pulse Ox
97.8 F 80 24 93/77 93
02/20/25 12:22 02/20/25 12:22 02/20/25 12:22 02/20/25 12:22 02/20/25 09:59
Intake & Output
02/19/25 02/20/25 02/21/25
06:59 06:59 06:59
Intake Total 2120 / 2220 4445 / 4445 670 / 670
Output Total 1500 / 1500 2760 / 2760 240 / 240
Balance 620 / 720 1685 / 1685 430 / 430
Intake:
Oral fluids 120 / 120 1200 / 1200 360 / 360
IV fluids (Total) 1700 / 1800 745 / 745 60 / 60
Lr 1,000 ml @ 30 mls/hr IV . 545 / 545 60 / 60
Q24H ALVARADO Rx#:[id number]
NORMOSOL 1700 / 1800 200 / 200
IV piggybacks 300 / 300 2500 / 2500
Blood Product Amount Infused ( 250 / 250
mL)
Packed Rbc Leukoreduced Unit 250 / 250
[id number]
Output:
Drain Output (Total) / 670 675 / 675 100 / 100
Left Abdomen Cory-Barraza 670 / 670 675 / 675 100 / 100
Urine, Pollock 250 / 250
Suprapubic output 5 / 5
Urostomy output 575 / 575 2084 / 2084 140 / 140
Lab Results
02/20/25 04:57
02/20/25 04:57
Physical Exam
-
General: No Acute Distress and AOx3
Abdomen: Soft, Distended, Non Tender and Other (urostomy warm but dark/purple with bloody urine in appliance)
Wound: Dressing in Place
Incision: Other (АЛЕКСАНДР with light SSF)
[2025-02-20] MEDS: TYLENOL PO (14:03)
[2025-02-20] MEDS: NOVOLOG FLEXPEN-MODERATE RESISTANCE 3 UNITS SC (14:05)
[2025-02-20 14:16] LABS: Glucose - Point of Care 224 mg/dl (70-99)
--- NOTE | 2025-02-20 14:25 | PTCARENOTE ---
OOB to the chair 2 assist, Gait unsteady. Using rolling walker. She was able to take several steps. RA pulse ox 97%. +BSX4. Bloody UOP from urostomy. Safe environment maintained.
--- NOTE | 2025-02-20 16:30 | PTCARENOTE ---
Back to bed for abdoninal film. Pt expressed her desire to get back in the chair. Encouraged to use the [employer] pump for pain management.
[2025-02-20] MEDS: LR 1000 IV (16:41)
[2025-02-20] MEDS: NOVOLOG FLEXPEN-MODERATE RESISTANCE 1 UNITS SC (16:49)
[2025-02-20 17:00] LABS: Glucose - Point of Care 158 mg/dl (70-99)
[2025-02-20] MEDS: LOVENOX 40 MG SC (18:03)
[2025-02-20] MEDS: LIPITOR 40 MG PO (21:15)
[2025-02-20 21:40] LABS: Glucose - Point of Care 345 mg/dl (70-99)
[2025-02-20] MEDS: NOVOLOG FLEXPEN 7 UNITS SC (21:59)
[2025-02-21] VITALS (20 sets, daily range): BP systolic 103–126; BP diastolic 45–88; BMI 29.1
[2025-02-21] MEDS: TYLENOL PO ×2 (01:35→23:44)
[2025-02-21] MEDS: SYNTHROID 25 MCG PO (04:16)
[2025-02-21] MEDS: TYLENOL 650 MG PO ×5 (04:16→19:25)
[2025-02-21] MEDS: LR 500 IV ×2 (04:16→17:17)
--- NOTE | 2025-02-21 04:47 | PTCARENOTE ---
no changes in assessment overnight. AM labs sent. pt OOB to bedside commode with assist x1 and rolling walker for BM, incontinent of BM x1 while in chair. BM liquid brown. pt oriented x3, forgetful and repetitive at times. AV/V paced on monitor. BP
in goal range, see VS. RA overnight, O2 >92%. LLQ АЛЕКСАНДР drain with moderate serosanguineous output overnight. urostomy with stents x2 in act. midline Aquacel with old drainage noted. dilaudid LAMP STACK DEVELOPER continues, pt offering minimal complains of pain
overnight, mostly with movement. CHG bath complete. АЛЕКСАНДР site dressing changed. call ovalle in reach.
[2025-02-21 04:57] LABS: INR 1.14; PT 14.9 Sec (11.4-14.6)
[2025-02-21 04:58] LABS: APTT 43.8 Sec (23.4-35.0)
[2025-02-21 05:15] LABS: Blood Urea Nitrogen 9 mg/dl (7-17); Calcium 8.6 mg/dl (8.4-10.2); Carbon Dioxide 29 mmol/L (22-30); Chloride 106 mmol/L (98-107); Estimated Creatinine Clearance 56 ml/min; Glucose 78 mg/dl (70-99); Magnesium 2.1 mg/dl (1.6-2.3); Potassium 4.0 mmol/L (3.5-5.1); Sodium 134 mmol/L (135-145); eGFR > 60.00
[2025-02-21 05:25] LABS: Hematocrit 32.0 % (37.0-47.0); Hemoglobin 10.3 g/dL (12.0-16.0); Mean Corp Hgb Conc. 32.2 g/dL (33.0-37.0); Mean Corpuscular Volume 84.7 fL (81.0-99.0); Nucleated Red Blood Cells % 0 %; Platelet Count 219 10^3/uL (130-400); Red Cell Dist. Width 17.9 % (11.5-14.5)
[2025-02-21] MEDS: NOVOLOG FLEXPEN-MODERATE RESISTANCE SC (07:54)
[2025-02-21] MEDS: ZETIA 10 MG PO (07:55)
[2025-02-21] MEDS: NEURONTIN 200 MG PO ×3 (07:55→21:01)
[2025-02-21] MEDS: B COMPLEX w/VITAMIN C 1 CAPLET PO (07:55)
[2025-02-21] MEDS: POLYTRIM OPHTHALMIC SOLUTION 2 DROP LEFT EYE ×4 (07:55→21:01)
[2025-02-21] MEDS: XANAX 0.5 MG PO ×4 (07:55→21:01)
[2025-02-21] MEDS: NON-FORMULARY ITEM 5 MG PO ×2 (07:56→19:25)
[2025-02-21] MEDS: LASIX 20 MG PO (07:58)
[2025-02-21 08:05] LABS: Glucose - Point of Care 114 mg/dl (70-99)
--- NOTE | 2025-02-21 08:15 | W.PN.URO.CBU ---
Addendum entered and electronically signed by Omkar Gonzales MD 02/21/25 23:32:
Of note, ileal conduit stoma w/ mild improvement in color - pinkish-purple appearance noted today (02/21).
Original Note:
Today's Communication / Plan
-
OOB and ambulating
Full liquids - advance per CRS
Trend labs (H/H and Cr stable)
Midline dressing removed - jay intact
Plan to remove АЛЕКСАНДР in next 24 hrs
Assessment / Plan
-
74F with bladder cancer and colon cancer
02/18/25: s/p radical cystectomy, pelvic exenteration, R hemicolectomy, ileal conduit urinary diversion
POD #3
- External urostomy appearance is dark w/ some concern for ischemia, however remains stable >48-7s hrs now - observation
- Ileal conduit draining well into urostomy bag, serum Cr remains stable
Incentive spirometry
OOB and ambulating
Bowel recovery:
- Full liquids - diet per Colorectal
- Methylnaltrexone
- Bowel regimen
Drains:
- Ureteral stents to remain in place x7-10 days
- Urostomy bag to gravity
- АЛЕКСАНДР drain to bulb suction - to be removed prior to discharge when outputs low
Pain control:
- PO analgesics
- Gabapentin 200mg PO TID
PT consult
WOCN consult for stoma care and teaching
Case management consult for rehab (patient lives alone)
Diagnosis
-
Date of Service: February 21, 2025
-
Patient Diagnosis:
Bladder cancer
Colon cancer
02/18/25: s/p radical cystectomy, pelvic exenteration, R hemicolectomy, ileal conduit urinary diversion
Subjective
-
Tolerating fulls.
Passing flatus + BMs.
Denies pain - requiring analgesics when OOB and ambulating.
Urine output appropriate.
Objective
-
Vital Signs
Temp Pulse Resp BP Pulse Ox
98.2 F 90 19 118/58 95
02/21/25 04:10 02/21/25 06:00 02/21/25 06:00 02/21/25 06:00 02/21/25 06:00
Intake and Output
02/20/25 02/21/25 02/22/25
06:59 06:59 06:59
Intake Total 4445 / 4445 2470 / 2470
Output Total 2760 / 2760 1795 / 1795
Balance 1685 / 1685 675 / 675
Intake:
Oral fluids 1200 / 1200 1680 / 1680
IV fluids (Total) 745 / 745 540 / 540
Lr 1,000 ml @ 30 mls/hr IV . 545 / 545 540 / 540
Q24H ALVARADO Rx#:[id number]
NORMOSOL 200 / 200
IV piggybacks 2500 / 2500
Blood Product Amount Infused ( 250 / 250
mL)
Packed Rbc Leukoreduced Unit 250 / 250
[id number]
Output:
Drain Output (Total) 675 / 675 605 / 605
Left Abdomen Cory-Barraza 675 / 675 605 / 605
Urostomy output 2084 / 5 1190 / 1190
Laboratory Results
02/21/25 04:27
02/21/25 04:27
Physical Exam
-
General - well developed, well nourished, no acute distress
Abdomen - soft, non-tender, non-distended, RLQ ileal conduit w/ stable purple stoma and sloughing x72 hrs, clear UOP, bilateral ureteral stents in place, L АЛЕКСАНДР drain w/ SSF
Neuro - AOx3, no motor deficits
Extremities - no clubbing, no cyanosis, no edema
Incision - clean, dry
Dressing - clean, dry, intact
Counseling
-
Discussed plan of care w/ Drs. Marie and Sen.
Care Review
Data Reviewed
Discussed with: Hospitalist, Nursing and Other (Colorectal Surgery)
Total Time Spent with Patient (in minutes): 45
--- NOTE | 2025-02-21 08:30 | PTCARENOTE ---
Assumed care of pt. pt OOB to bedside commode then chair with assist x1 and rolling walker. No BM at this time. pt oriented x3, forgetful and repetitive at times. AV/V paced on monitor. BP in goal range, see VS. RA, O2 >92%. LLQ АЛЕКСАНДР drain with
moderate serosanguineous output. urostomy with stents x2 in act. midline Aquacel with old drainage noted. dilaudid CARBON PRINTER continues, pt offering minimal complains of pain, mostly with movement. АЛЕКСАНДР draining serosang drainage. call ovalle in reach.
--- NOTE | 2025-02-21 12:02 | W.PN.HOSP.TC ---
Today's Communication/Plan
-
Postop care. Pain control. Monitor blood pressure
Assessment / Plan
Assessment / Plan
Physical exam:
General: Acutely ill
HEENT: Normocephalic, Atraumatic and Moist Mucous Membranes, left eye redness and no discharge.
Respiratory: Clear to Auscultation; Negative Wheezes, Rales or Rhonchi
Cardiac: Regular Rhythm and S1/S2
GI: Soft, Nontender and Nondistended. Postop urostomy in place
Musculoskeletal: No Clubbing, No Cyanosis and No Edema
Neuro: Awake, Alert and Oriented, no neurological deficit
Psych: Calm
A/P:
Adenocarcinoma and urothelial cancer:
Status post exp laparotomy, adhesions lysis, right hemicolectomy, hysterectomy, radical cystectomy, pelvic exenteration, pelvic lymph node dissection, ileal conduit urinary diversion.
Colorectal surgery and urology following
Pain control on INFORMATICA DEVELOPER pump and scheduled pain medications
Urology following urostomy for concerns of ischemia
Colorectal surgery advancing to regular diet today
Hypotension:
Holding antihypertensives
Monitor blood pressure
Acute blood loss anemia:
Blood transfusion as needed
Monitor hemoglobin closely
Chronic HFrEF:
Monitor volume status closely
Monitor daily weights and ins and outs
Holding oral diuretics
Continue GDMT
Paroxysmal A-fib:
Continue rate control
Anticoagulation when cleared by surgeons
Diabetes mellitus type 2:
Monitor sugars closely
Insulin sliding scale
Left eye redness:
Less likely infection and rather dryness
Continue eyedrop
Hypertension:
Holding antihypertensives
Hyperlipidemia:
Continue home statin and ezetimibe
Hypothyroidism:
Continue thyroid replacement
Anxiety:
Continue Xanax scheduled doses
DVT prophylaxis:
Lovenox SQ
CODE STATUS:
Full code
Total time spent on today's encounter was 36 minutes which included time spent in counseling the patient/family regarding diagnosis and treatment plan as listed above, goals of care, and symptom management. Case was discussed with nursing staff,
specialists, and care coordinators/case management. All labs and imaging personally reviewed by me. Remainder the time spent in detailed review of previous records, lab data, imaging, and other medical provider documentation.
Anticipated Discharge: > 48 hours
Subjective/Interval History
-
Date of Service: February 21, 2025
Patient states pain is manageable. Denies nausea or vomiting. She has flatus and bowel movements. Blood pressure soft but improving. Afebrile.
Objective Data
-
Labs:
Laboratory Results
02/21/25
04:27
WBC 13.6 H
Hgb 10.3 L D
Hct 32.0 L
Plt Count 219
PT 14.9 H
INR 1.14
APTT 43.8 H
Sodium 134 L
Potassium 4.0
Chloride 106
Carbon Dioxide 29
BUN 9
Creatinine 0.7
Glucose 78
Calcium 8.6
Vital Signs:
Vital Signs
Temp Pulse Resp BP Pulse Ox
98.2 F 84 15 117/58 97
02/21/25 04:10 02/21/25 11:00 02/21/25 11:00 02/21/25 11:00 02/21/25 11:00
I&O
02/20/25 02/21/25 02/22/25
06:59 06:59 06:59
Intake Total 4445 / 4445 2470 / 2470 60 / 60
Output Total 2760 / 2760 1795 / 1795 565 / 565
Balance 1685 / 1685 675 / 675 -505 / -505
[2025-02-21] MEDS: NOVOLOG FLEXPEN-MODERATE RESISTANCE 3 UNITS SC (12:18)
[2025-02-21 12:31] LABS: Glucose - Point of Care 218 mg/dl (70-99)
--- NOTE | 2025-02-21 12:36 | PTCARENOTE ---
Dr Todd and Urologist to bedside. Midline dressing removed, jay intact
--- NOTE | 2025-02-21 13:24 | W.PN.INTV ---
Today's Communication / Plan
Recommendations
- Continue to monitor hematocrit
- Medical Social Worker service will sign off once patient is transferred out of ICU.
Assessment
-
Patient is a 74-year-old female with new diagnosis of adenocarcinoma as well as urothelial cancer, is s/p exploratory laparotomy, adhesion lysis, right hemicolectomy, hysterectomy, radical cystectomy, pelvic exenteration, pelvic lymph node
dissection, ileal conduit urinary diversion, by vascular surgery service, POD #3
Continue observation following procedure
Follow neurovascular checks per protocol
Follow BP monitoring and parameters as set by primary team
Cardiac history reviewed, cardiac status well compensated
Monitor on telemetry
Low blood pressure noted after morning medications, Lisinopril/Coreg. Responded well to IV fluid resuscitation as well as IV albumin, oral antihypertensives on hold
Concern for ischemia of ostomy, urology service on case. Considering stability over last 48 hours, continuing to monitor conservatively. Good urine output.
Pain control per protocol
RASS goal 0
No prior history of pulmonary disease, remote smoking history during college time. Reported history of smoking pot in the past.
CXR reviewed indicating no acute disease
No prior PFTs for review
Encouraged IS
Diet advancement per protocol
Aspiration precautions
GI prophylaxis: None
Cr at baseline, follow UO
Critical I/Os
Void trials
Replete electrolytes as needed
No signs/symptoms suspicious for infectious etiology at this time
Will observe off antibiotics for now
Follow temperatures/CBC
Hb and platelets, monitor postoperatively
DVT prophylaxis: Subcu Lovenox
Other medical diagnoses:
- Nonischemic cardiomyopathy, ejection fraction now improved to 50 to 55%, left heart catheterization without coronary artery disease in 2016
- History of mitral valve replacement with bioprosthetic valve, residual moderate mitral regurgitation
- Pulmonary hypertension, pulmonary artery systolic pressure 38 with moderate to severe tricuspid regurgitation, Group II PH with history of mitral valve disease
- History of AV block, status post pacemaker placement
- Paroxysmal atrial fibrillation
- Hypothyroidism
- Hyperlipidemia
- Diabetes
Critical Care time 40 mins -- The patient is admitted for acute critical illness for the treatment of vital organ failure and/or prevention of further life-threatening conditions. Total care includes time spent in review of history, physical exam,
medications, hemodynamic/ventilator parameters, laboratory data, imaging and discussion with house staff, pharmacy, respiratory therapy, customer relations representative, and nursing.
Data:
CXR 01/2025: Unremarkable.
CT C/A/P 12/2024:
CHEST
1. Mild cardiomegaly with moderate enlargement of the left atrial and ventricular chambers.
2. Previous mitral valve replacement.
3. Left-sided cardiac pacemaker in place.
4. Minimal bilateral pleural effusions.
5. Mild scarring in both lower lungs.
ABDOMEN and PELVIS:
1. Large polypoid intraluminal masses in the URINARY BLADDER suggesting EXTENSIVE UROTHELIAL CARCINOMA. A large amount of intraluminal blood clot is a less likely diagnostic possibility given that the polypoid masses appear to demonstrate
enhancement.
2. 2.5 cm mucosal-based mass in the PROXIMAL ASCENDING COLON which was recently biopsied and is likely COLON ADENOCARCINOMA.
3. Multiple uterine leiomyoma.
4. Small bubbles of extraluminal air adjacent to the 3rd portion of the duodenum (probably secondary to recent duodenal biopsy).
5. Severe discogenic degenerative disease at L5/S1.
6. Severe bilateral facet joint arthrosis at L4/L5 with associated grade 1 anterolisthesis.
Colonoscopy 12/2024: Ileocecal valve mass biopsy, invasive colonic adenocarcinoma, moderately differentiated.
TURBT 12/2024: Bladder right wall biopsy, high-grade papillary urothelial carcinoma with necrosis, invading into lamina propria
ECHO 12/2024: 1. Compared to a prior transthoracic echocardiogram study from December 2023 which was reviewed, Ejection fraction has improved from 40-45% to 50-55%.
2. Normal left ventricular size. Mild concentric left ventricular hypertrophy. Abnormal (paradoxical) septal motion. Normal systolic function. Ejection fraction is 50 to 55 % by visual assessment.
3. #29 Bovine magna bioprosthetic mitral valve replacement with peak/mean gradients of 8/4 mmHg. Moderate mitral regurgitation.
4. Moderate to severe tricuspid regurgitation. Estimated pulmonary artery pressure of 38 mmHg assuming a right atrial pressure of 3 mmHg.
Lexiscan 05/2023: No significant ischemia
[facility] 09/2015: PCWP 30-46, PA 59/32. Normal coronary arteries.
Subjective Dataa
Subjective Data
Date of Service:
Date of Service: February 21, 2025
Subjective:
Patient comfortably lying in bed in no acute distress.
Review of Systems
Genitourinary: Other (All 14 systems reviewed and negative except as stated above in the history of present illness. Pain improving, appetite improving.)
Objective Data
Data Reviewed
Vital Signs / I&O / Oxygen:
Vital Signs
Temp Pulse Resp BP Pulse Ox
97.7 F 90 21 112/88 97
02/21/25 12:42 02/21/25 13:00 02/21/25 13:00 02/21/25 13:00 02/21/25 12:00
Intake and Output
02/20/25 02/21/25 02/22/25
06:59 06:59 06:59
Intake Total 4445 / 4445 2470 / 2470 570 / 570
Output Total 2760 / 2760 1795 / 1795 935 / 935
Balance 1685 / 1685 675 / 675 -365 / -365
SaO2 97
Nasal Cannula flow liters per 2
minute
Physical Exam
General: Comfortable
HEENT: Normocephalic
Cardiovascular: S1-S2
Respiratory: Clear
GI: Soft and Non Distended
Neurology: Awake, Alert and Oriented
Skin: Warm
Labs/Micro/Reports
Lab Data
02/21/25 04:27
02/21/25 04:27
Laboratory Results
02/21/25
04:27
PT 14.9 H
INR 1.14
APTT 43.8 H
--- NOTE | 2025-02-21 13:25 | W.PN.CRS1 ---
Today's Communication / Plan
-
regular diet
monitor stoma
Assessment/Plan
-
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
POD#3 Exploratory laparotomy, right hemicolectomy, Radical cystectomy, pelvic exenteration, pelvic lymph node dissection, ileal conduit urinary diversion
Vitals normal
WBC: 13.6 (13.4, 12.2), Hgb 10.3 (8.0)
02/20- transfused 1 unit
Urostomy output: 1050ml. Stoma dark/mucus covered, skin edges present
Drain: 605 ml
Plan:
-Advance diet to regular
-Repeat labs in am
-Stoma management as per urology - discussed with Dr. Hyde today
-OOB as tolerated
-Pollock per urology
-OR pathology pending
-Pain control: Dilaudid INTERNAL COMBUSTION ENGINE INSPECTOR, Tylenol 650mg po q4
-Wound RN for stoma care
-On lovenox for DVT prophylaxis
-АЛЕКСАНДР drain to remain in place for now
-Dilaudid INTERNAL COMBUSTION ENGINE INSPECTOR for pain control
Subjective Data
Procedure
02/18/2025- Exploratory laparotomy, right hemicolectomy, Radical cystectomy, pelvic exenteration, pelvic lymph node dissection, ileal conduit urinary diversion
Subjective Data
Date of Service: February 21, 2025
Patient states she has no nausea or vomiting. She has loose bowel movements. She is hungry. She has flatus.
Objective Data
-
Vital Signs
Temp Pulse Resp BP Pulse Ox
97.7 F 90 21 112/88 97
02/21/25 12:42 02/21/25 13:00 02/21/25 13:00 02/21/25 13:00 02/21/25 12:00
Intake & Output
11/02/21/25 02/22/25
06:59 06:59 06:59
Intake Total 4445 / 4445 2470 / 2470 570 / 570
Output Total 2760 / 2760 1795 / 1795 935 / 935
Balance 1685 / 1685 675 / 675 -365 / -365
Intake:
Oral fluids 1200 / 1200 1680 / 1680 480 / 480
IV fluids (Total) 745 / 745 540 / 540 90 / 90
Lr 1,000 ml @ 30 mls/hr IV . 545 / 545 540 / 540 90 / 90
Q24H ALVARADO Rx#:[id number]
NORMOSOL 200 / 200
IV piggybacks 2500 / 2500
Blood Product Amount Infused ( 250 / 250
mL)
Packed Rbc Leukoreduced Unit 250 / 250
[id number]
Output:
Drain Output (Total) 675 / 675 605 / 605 255 / 255
Left Abdomen Cory-Barraza 675 / 675 605 / 605 255 / 255
Urostomy output 2084 / 5 1190 / 1190 680 / 680
Lab Results
02/21/25 04:27
02/21/25 04:27
Physical Exam
-
General: No Acute Distress and AOx3
Abdomen: Soft, Non Distended, Non Tender and Other (urostomy with mucus covering it, somewhat retracted with skin edges present)
Skin: Warm and Dry
Incision: Clear, Dry, Intact
[2025-02-21] MEDS: NOVOLOG FLEXPEN-MODERATE RESISTANCE 1 UNITS SC (17:16)
[2025-02-21] MEDS: LOVENOX 40 MG SC (17:18)
[2025-02-21 17:27] LABS: Glucose - Point of Care 195 mg/dl (70-99)
[2025-02-21] MEDS: LIPITOR 40 MG PO (21:00)
[2025-02-21 21:11] LABS: Glucose - Point of Care 185 mg/dl (70-99)
[2025-02-22] VITALS (11 sets, daily range): BP systolic 110–153; BP diastolic 55–86; PULSE 94; BMI 29.7
[2025-02-22] MEDS: SYNTHROID 25 MCG PO (04:35)
[2025-02-22] MEDS: TYLENOL 650 MG PO ×5 (04:35→20:11)
[2025-02-22 05:03] LABS: Hematocrit 29.9 % (37.0-47.0); Hemoglobin 9.6 g/dL (12.0-16.0); Mean Corp Hgb Conc. 32.1 g/dL (33.0-37.0); Mean Corpuscular Volume 85.2 fL (81.0-99.0); Nucleated Red Blood Cells % 0 %; Platelet Count 223 10^3/uL (130-400); Red Cell Dist. Width 17.6 % (11.5-14.5)
[2025-02-22 05:20] LABS: Blood Urea Nitrogen 10 mg/dl (7-17); Calcium 8.4 mg/dl (8.4-10.2); Carbon Dioxide 26 mmol/L (22-30); Chloride 107 mmol/L (98-107); Estimated Creatinine Clearance 66 ml/min; Glucose 145 mg/dl (70-99); Magnesium 1.8 mg/dl (1.6-2.3); Potassium 4.2 mmol/L (3.5-5.1); Sodium 135 mmol/L (135-145); eGFR > 60.00
--- NOTE | 2025-02-22 05:28 | PTCARENOTE ---
Received patient at 1900 on the CONDUIT HELPER pump. Right urostomy draining blood tinged urine. L abd АЛЕКСАНДР drain with serosanguineous drainage. Abd tender with hyperactive bowel sounds. Pain controlled with the pump. Patient pleasant but forgetful. Able to make
needs known. Ate 100 percent of dinner plus a snack at 0230. AV paced on the monitor. See worklist for nursing assessment details.
[2025-02-22] MEDS: B COMPLEX w/VITAMIN C 1 CAPLET PO (07:12)
[2025-02-22] MEDS: NEURONTIN 200 MG PO ×3 (07:12→21:14)
[2025-02-22] MEDS: XANAX 0.5 MG PO ×4 (07:13→21:14)
[2025-02-22] MEDS: ZETIA 10 MG PO (07:13)
[2025-02-22] MEDS: NON-FORMULARY ITEM 5 MG PO ×2 (07:14→20:18)
[2025-02-22] MEDS: POLYTRIM OPHTHALMIC SOLUTION 2 DROP LEFT EYE ×4 (07:14→23:17)
[2025-02-22] MEDS: RELISTOR 4 MG SC (07:15)
[2025-02-22] MEDS: NOVOLOG FLEXPEN-MODERATE RESISTANCE 1 UNITS SC ×2 (07:15→17:36)
[2025-02-22 07:24] LABS: Glucose - Point of Care 167 mg/dl (70-99)
--- NOTE | 2025-02-22 08:39 | PTCARENOTE ---
Update with hospitalist team. Possible downgrade await surgery to dc regional rehabilitation director and approve PT/OT. Continue drain management, follow up assessment trends ongoing. Vital signs as documented. Continue mobility protocols, cough deep breath exercises and
incentive spirometer. Follow up await pt/ot needs. Continue in and out of bed to chair, commode while in ICU.
--- NOTE | 2025-02-22 09:20 | W.PN.HOSP.TC ---
Today's Communication/Plan
-
resume Coreg / Lasix at low dose
Assessment / Plan
Assessment / Plan
Physical exam:
General: not in distress, feeling comfortable
HEENT: Normocephalic, Atraumatic and Moist Mucous Membranes, left eye redness and no discharge.
Respiratory: Clear to Auscultation; Negative Wheezes, Rales or Rhonchi
Cardiac: Regular Rhythm and S1/S2
GI: Soft, Nontender and Nondistended. Postop urostomy in place
Musculoskeletal: No Clubbing, No Cyanosis and No Edema
Neuro: Awake, Alert and Oriented, no neurological deficit
Psych: Calm
A/P:
Adenocarcinoma and urothelial cancer:
Status post exp laparotomy, adhesions lysis, right hemicolectomy, hysterectomy, radical cystectomy, pelvic exenteration, pelvic lymph node dissection, ileal conduit urinary diversion.
Colorectal surgery and urology following
Pain control on AGILE SCRUM MASTER pump and scheduled pain medications, per surgery, can dc now
Urology following urostomy for concerns of ischemia
Colorectal surgery advancing to regular diet
Hypotension/ hemorrhagic shock exacerbated by opioid use :
Holding antihypertensives, reduced opioid. can resume BB at lower dose
c/w volume resuscitation
Acute blood loss anemia:
Yes, Acute GI Bleed is enhanced by/contributed to/associated with/due to Eliquis.
Blood transfusion as needed
s/p 5 units RBCs
Chronic HFrEF:
Monitor volume status closely
Monitor daily weights and ins and outs
Holding oral diuretics
Continue GDMT
Paroxysmal A-fib:
Continue rate control
Anticoagulation when cleared by surgeons
Diabetes mellitus type 2:
Monitor sugars closely
Insulin sliding scale
Hyponatremia
Left eye redness:
Less likely infection and rather dryness
Continue eyedrop
Hypertension:
ok to resume antihypertensives slowly
Hyperlipidemia:
Continue home statin and ezetimibe
Hypothyroidism:
Continue thyroid replacement
Anxiety:
Continue Xanax scheduled doses
DVT prophylaxis:
Lovenox SQ
CODE STATUS:
Full code
Total time spent to see the patient, examine the patient, review data and lab results, discuss treatment plan with patient, nursing staff around 55 minutes�
Anticipated Discharge: > 48 hours
Subjective/Interval History
-
Date of Service: February 22, 2025
Objective Data
-
Labs:
Laboratory Results
02/22/25
04:43
WBC 10.5
Hgb 9.6 L
Hct 29.9 L
Plt Count 223
Sodium 135
Potassium 4.2
Chloride 107
Carbon Dioxide 26
BUN 10
Creatinine 0.6
Glucose 145 H
Calcium 8.4
Vital Signs:
Vital Signs
Temp Pulse Resp BP Pulse Ox
97.5 F 97 20 110/86 97
02/22/25 07:20 02/22/25 08:34 02/22/25 08:34 02/22/25 08:34 02/22/25 08:34
I&O
02/21/25 02/22/25 02/23/25
06:59 06:59 06:59
Intake Total 2470 / 2470 1440 / 1440 270 / 270
Output Total 1795 / 1795 2069 / 2069 75 / 75
Balance 675 / 675 -630 / -630 195 / 195
[2025-02-22] MEDS: ROXICODONE 5 MG PO ×2 (09:42→15:12)
--- NOTE | 2025-02-22 10:09 | PTCARENOTE ---
Plan to transition to med/surg 2south. Follow up bedside with surgical teams. Clear for PT/OT. Dc'd entry level assistant manager transition to oral. Continue with teaching. Continue with mobility protocols. Presently out of bed to chair. Follow up drain management, input
and outputs trends. Supportive cares, teaching and emotional support ongoing. Patient verbalizing satisfaction of cares in [facility].
--- NOTE | 2025-02-22 10:21 | W.PN.CRS1 ---
Today's Communication / Plan
-
continue regular diet
d/c INFORMATICS PHARMACIST and convert to oral pain meds
Assessment/Plan
-
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
POD#4 Exploratory laparotomy, right hemicolectomy, Radical cystectomy, pelvic exenteration, pelvic lymph node dissection, ileal conduit urinary diversion
Vitals normal
WBC: 10.5 (13.6, 13.4, 12.2), Hgb 9.6 (10.3, 8.0)
02/20- transfused 1 unit
Urostomy output: 525ml. Stoma dark/mucus covered, skin edges present
Drain: 555 ml
Plan:
-Continue regular
-Urostomy management as per urology
-OOB as tolerated
-Pollock per urology
-OR pathology pending
-Pain control: Dilaudid INFORMATICS PHARMACIST, Tylenol 650mg po q4 - converting to po pain meds today
-Wound RN for stoma care
-On lovenox for DVT prophylaxis
-АЛЕКСАНДР drain to remain in place for now
Subjective Data
Procedure
02/18/2025- Exploratory laparotomy, right hemicolectomy, Radical cystectomy, pelvic exenteration, pelvic lymph node dissection, ileal conduit urinary diversion
Subjective Data
Date of Service: February 22, 2025
Patient states she is feeling well. Her pain is controlled. Denies nausea or vomiting. She has flatus.
Objective Data
-
Vital Signs
Temp Pulse Resp BP Pulse Ox
97.5 F 70 20 149/67 98
02/22/25 07:20 02/22/25 10:00 02/22/25 10:01 02/22/25 10:00 02/22/25 10:01
Intake & Output
02/21/25 02/22/25 02/23/25
06:59 06:59 06:59
Intake Total 2470 / 2470 1440 / 1440 540 / 540
Output Total 1795 / 1795 2070 / 2070 275 / 275
Balance 675 / 675 -630 / -630 265 / 265
Intake:
Oral fluids 1680 / 1680 1080 / 1080 480 / 480
IV fluids (Total) 540 / 540 360 / 360 60 / 60
Lr 1,000 ml @ 30 mls/hr IV . 540 / 540 360 / 360 60 / 60
Q24H ALVARADO Rx#:[id number]
Blood Product Amount Infused ( 250 / 250
mL)
Packed Rbc Leukoreduced Unit 250 / 250
[id number]
Output:
Drain Output (Total) 605 / 605 555 / 555 75 / 75
Left Abdomen Cory-Barraza 605 / 605 555 / 555 75 / 75
Urine, Pollock 710 / 710
Urostomy output 1190 / 1190 805 / 805 200 / 200
Lab Results
02/22/25 04:43
02/22/25 04:43
Physical Exam
-
General: No Acute Distress and AOx3
Abdomen: Soft, Non Distended, Non Tender and Other (urostomy dark but pinker today, warm)
Skin: Warm and Dry
--- NOTE | 2025-02-22 11:58 | WOUNDNOTE ---
STOMA RUQ (WITH PHOTO FLASH)(patient sitting straight up)
--- NOTE | 2025-02-22 11:59 | WOUNDNOTE ---
STOMA (RUQ)(in chair slightly reclined)
--- NOTE | 2025-02-22 12:04 | WOUNDNOTE ---
[facility] RN note: Patient's RUQ stoma pink/purple with mucous/clotted blood. Stents in place. Urine yellow. Peristomal skin intact. Instructed patient how to open and close pouch, how to disconnect and reconnect bedside drainage and how to clean and when
to replace overnight drainage bag. Instructed patient urostomy appliance is changed an average of 2 times a week and as needed for leakage. Patient was able to open and close pouch and disconnect and reconnect bedside drainage bag. Morrison 1 piece
pouch applied (Morrison # [id number]) with an Reba seal (Reba seal pinched/bulked up at 3 and 9 o'clock where skin creases are when when sits up straight). Ostomy supplies in room (including flat 1 piece #8450 and 2 piece # [id number]/pouch # 30564 and
Isabel soft convex 1 piece pouch #[id number]) and Reba seals. [place] texted Dr. aMrie stoma pictures. Confirmed with Dr. Marie can use convexity if needed for leakage.
--- NOTE | 2025-02-22 12:05 | WOUNDNOTE ---
WOC RN Note: Patient stood with walker during sacral skin check. Sacral and heel skin intact.
--- NOTE | 2025-02-22 12:12 | PTCARENOTE ---
Updates at bedside with wound care team assist teaching urostomy cares. PT/OT at bedside ambulate unit at this time, james barone and two team members form PT. Lunch on way will follow accu data trends. Assessment unchanged. Patient in good
spirits anxious to continue PT. Follow up report to 2 south team.
--- NOTE | 2025-02-22 12:16 | W.PN.URO.CBU ---
Today's Communication / Plan
-
Regular diet
Ambulation/PT/OT
PO pain control
Stable for transfer to surgical floor
Assessment / Plan
-
74F with bladder cancer and colon cancer
02/18/25: s/p radical cystectomy, pelvic exenteration, R hemicolectomy, ileal conduit urinary diversion
POD #4
- Urostomy with special needs librarian appearance today, likely some improved perfusion
- Ileal conduit draining well into urostomy bag, serum Cr remains stable
Incentive spirometry
Encourage progressive ambulation
PT/OT
Bowel recovery:
- Regular diet
- Methylnaltrexone
- Bowel regimen and diet per colorectal
Drains:
- Ureteral stents to remain in place x7-10 days post op
- Urostomy bag to gravity
- АЛЕКСАНДР drain to bulb suction - to be removed prior to discharge when outputs low
Pain control:
- PO analgesics
- Gabapentin 200mg PO TID
WOCN consult for stoma care and teaching
Case management consult for rehab (patient lives alone)
Diagnosis
-
Date of Service: February 22, 2025
-
Patient Diagnosis:
Post Op Day:
Patient Diagnosis:
Bladder cancer
Colon cancer
02/18/25: s/p radical cystectomy, pelvic exenteration, R hemicolectomy, ileal conduit urinary diversion
Subjective
-
Tolerating regular diet
Ambulating and moving to chair
Pain controlled
No N/V
Passed some stool over weekend
Objective
-
Vital Signs
Temp Pulse Resp BP Pulse Ox
97.7 F 94 21 149/67 98
02/22/25 11:15 02/22/25 12:00 02/22/25 12:00 02/22/25 10:00 02/22/25 10:01
Intake and Output
02/21/25 02/22/25 02/23/25
06:59 06:59 06:59
Intake Total 2470 / 2470 1440 / 1440 780 / 780
Output Total 1795 / 1795 2070 / 2070 275 / 275
Balance 675 / 675 -630 / -630 505 / 505
Intake:
Oral fluids 1680 / 1680 1080 / 1080 720 / 720
IV fluids (Total) 540 / 540 360 / 360 60 / 60
Lr 1,000 ml @ 30 mls/hr IV . 540 / 540 360 / 360 60 / 60
Q24H ALVARADO Rx#:[id number]
Blood Product Amount Infused ( 250 / 250
mL)
Packed Rbc Leukoreduced Unit 250 / 250
[id number]
Output:
Drain Output (Total) 605 / 605 555 / 555 75 / 75
Left Abdomen Cory-Barraza 605 / 605 555 / 555 75 / 75
Urine, Pollock 710 / 710
Urostomy output 1190 / 1190 805 / 805 200 / 200
Laboratory Results
02/22/25 04:43
02/22/25 04:43
Physical Exam
-
General - well developed, well nourished, no acute distress
Chest - clear
Abdomen - soft, non-tender
АЛЕКСАНДР drain serosanguinous
Ostomy purple in color with improved perfusion compared to Saturday
Skin - warm & dry with no rash
Neuro - AOx3, no motor deficits
Extremities - no clubbing, no cyanosis, no edema
[2025-02-22] MEDS: NOVOLOG FLEXPEN-MODERATE RESISTANCE SC (12:28)
[2025-02-22 12:36] LABS: Glucose - Point of Care 141 mg/dl (70-99)
--- NOTE | 2025-02-22 15:54 | CM ---
Transferred to Room 2105. Adenocarcinoma and urothelial cancer: S/P exp lap, adhesions lysis, right hemicolectomy, hysterectomy, radical cystectomy, pelvic exenteration, pelvic lymph node dissection, ileal conduit urinary diversion. Tolerating
regular diet, bowel function, SPORTS REPORTER Dilaudid. Discharge POC: Therapy rec still SNF vs . Will await further evals for final rec. If home will need RN also.
[2025-02-22 17:02] LABS: Glucose - Point of Care 171 mg/dl (70-99)
[2025-02-22] MEDS: LOVENOX 40 MG SC (17:37)
[2025-02-22] MEDS: COREG 3.125 MG PO (20:11)
[2025-02-22 20:48] LABS: Glucose - Point of Care 190 mg/dl (70-99)
[2025-02-22] MEDS: LIPITOR 40 MG PO (21:14)
[2025-02-23] MEDS: TYLENOL 650 MG PO ×6 (00:15→20:01)
[2025-02-23] MEDS: ROXICODONE 5 MG PO ×2 (05:34→16:18)
[2025-02-23] MEDS: SYNTHROID 25 MCG PO (05:35)
[2025-02-23 06:00] VITALS: BMI 29.6
[2025-02-23 07:00] VITALS: BP 125/66
[2025-02-23 07:20] LABS: Glucose - Point of Care 136 mg/dl (70-99)
[2025-02-23 07:20] LABS: Hematocrit 29.2 % (37.0-47.0); Hemoglobin 9.5 g/dL (12.0-16.0); Mean Corp Hgb Conc. 32.5 g/dL (33.0-37.0); Mean Corpuscular Volume 84.9 fL (81.0-99.0); Nucleated Red Blood Cells % 0 %; Platelet Count 242 10^3/uL (130-400); Red Cell Dist. Width 17.4 % (11.5-14.5)
[2025-02-23] MEDS: POLYTRIM OPHTHALMIC SOLUTION 2 DROP LEFT EYE ×4 (07:56→22:47)
[2025-02-23] MEDS: NEURONTIN 200 MG PO (07:56)
[2025-02-23] MEDS: XANAX 0.5 MG PO ×4 (07:56→22:47)
[2025-02-23] MEDS: B COMPLEX w/VITAMIN C 1 CAPLET PO (07:57)
[2025-02-23] MEDS: ZETIA 10 MG PO (07:57)
[2025-02-23] MEDS: COREG 3.125 MG PO ×2 (07:57→20:00)
[2025-02-23] MEDS: NON-FORMULARY ITEM 5 MG PO ×2 (07:57→20:01)
[2025-02-23] MEDS: NOVOLOG FLEXPEN-MODERATE RESISTANCE SC ×2 (07:58→17:15)
[2025-02-23 08:17] LABS: Blood Urea Nitrogen 13 mg/dl (7-17); Calcium 8.7 mg/dl (8.4-10.2); Carbon Dioxide 29 mmol/L (22-30); Chloride 106 mmol/L (98-107); Estimated Creatinine Clearance 57 ml/min; Glucose 125 mg/dl (70-99); Potassium 4.5 mmol/L (3.5-5.1); Sodium 135 mmol/L (135-145); eGFR > 60.00
--- NOTE | 2025-02-23 09:10 | W.PN.URO.CBU ---
Today's Communication / Plan
-
PT/OT
CM for dispo planning
Ostomy teaching
АЛЕКСАНДР creatinine
Restart Eliquis
Possible discharge tomorrow
Assessment / Plan
-
74F with bladder cancer and colon cancer
02/18/25: s/p radical cystectomy, pelvic exenteration, R hemicolectomy, ileal conduit urinary diversion
POD #5
Urostomy with improved appearance this week
Encourage progressive ambulation
PT/OT
Wound/ostomy nurse care and teaching
Case management consult for rehab (patient lives alone)
HGB stable
Okay to resume Eliquis today
Bowel recovery:
- Regular diet, colorectal signed off
Drains:
- Ureteral stents to remain in place x7-10 days post op
- Urostomy bag to gravity
- АЛЕКСАНДР drain to bulb suction - decreasing output x2 days. АЛЕКСАНДР creatinine today prior to likely removal tomorrow
Pain control:
- PO analgesics
- Add NSAID PRN
- Stop Gabapentin
Diagnosis
-
Date of Service: February 23, 2025
-
Patient Diagnosis:
Bladder cancer
Colon cancer
02/18/25: s/p radical cystectomy, pelvic exenteration, R hemicolectomy, ileal conduit urinary diversion
Subjective
-
Feeling well
Pain controlled with PO meds
+BM yesterday
Tolerating diet
ambulating with PT
Objective
-
Vital Signs
Temp Pulse Resp BP Pulse Ox
98.4 F 71 16 125/66 96
02/23/25 07:00 02/23/25 07:57 02/23/25 07:00 02/23/25 07:57 02/23/25 07:00
Intake and Output
02/22/25 02/23/25 02/24/25
06:59 06:59 06:59
Intake Total 1440 / 1440 1280 / 1280
Output Total 2069 / 0 2325 / 2325 335 / 335
Balance -630 / -630 -1045 / -1045 -335 / -335
Intake:
Oral fluids 1080 / 1080 1220 / 1220
IV fluids (Total) 360 / 360 60 / 60
Lr 1,000 ml @ 30 mls/hr IV . 360 / 360 60 / 60
Q24H ALVARADO Rx#:[id number]
Output:
Drain Output (Total) 555 / 555 300 / 300 60 / 60
Left Abdomen Cory-Barraza 555 / 555 300 / 300 60 / 60
Urine, Pollock 710 / 710
Urine, Voided 1250 / 1250
Urostomy output 805 / 805 775 / 775 275 / 275
Laboratory Results
02/23/25 07:01
02/23/25 07:01
Physical Exam
-
General - well developed, well nourished, no acute distress
Chest - clear bilaterally
Abdomen - soft, non-tender
АЛЕКСАНДР drain SS
Ostomy community outreach coordinator in color, improved
Skin - warm & dry with no rash
Neuro - AOx3, no motor deficits
Extremities - no clubbing, no cyanosis, no edema
Incision - clean, dry
Dressing - clean, dry, intact, jay in place
[2025-02-23] MEDS: ELIQUIS 5 MG PO ×2 (10:36→20:00)
--- NOTE | 2025-02-23 11:19 | W.PN.HOSP.TC ---
Today's Communication/Plan
-
dc planning
Assessment / Plan
Assessment / Plan
Physical exam:
General: not in distress, feeling comfortable
HEENT: Normocephalic, Atraumatic and Moist Mucous Membranes, left eye redness and no discharge.
Respiratory: Clear to Auscultation; Negative Wheezes, Rales or Rhonchi
Cardiac: Regular Rhythm and S1/S2
GI: Soft, Nontender and Nondistended. Postop urostomy in place
Musculoskeletal: No Clubbing, No Cyanosis and No Edema
Neuro: Awake, Alert and Oriented, no neurological deficit
Psych: Calm
A/P:
Adenocarcinoma and urothelial cancer:
Status post exp laparotomy, adhesions lysis, right hemicolectomy, hysterectomy, radical cystectomy, pelvic exenteration, pelvic lymph node dissection, ileal conduit urinary diversion.
Colorectal surgery and urology following
dc pump and now on PRN medications.
d/w urology, ostomy teaching, ok to dc in next 24 hours.
Colorectal surgery advancing to regular diet
Hypotension/ hemorrhagic shock exacerbated by opioid use : Resolved.
Acute blood loss anemia:
Yes, Acute GI Bleed is enhanced by/contributed to/associated with/due to Eliquis.
Blood transfusion as needed
s/p 5 units RBCs
Chronic HFrEF:
Monitor volume status closely
Monitor daily weights and ins and outs
Resuming oral diuretics
Continue GDMT
Paroxysmal A-fib:
Continue rate control
Anticoagulation is ok per urology
Diabetes mellitus type 2:
Monitor sugars closely
Insulin sliding scale
Hyponatremia
Left eye redness:
Less likely infection and rather dryness
Continue eyedrop
Hypertension:
ok to resume antihypertensives slowly
Hyperlipidemia:
Continue home statin and ezetimibe
Hypothyroidism:
Continue thyroid replacement
Anxiety:
Continue Xanax scheduled doses
DVT prophylaxis:
Lovenox SQ
CODE STATUS:
Full code
Total time spent to see the patient, examine the patient, review data and lab results, discuss treatment plan with patient, nursing staff around 55 minutes�
Anticipated Discharge: Within 24 hours
Subjective/Interval History
-
Date of Service: February 23, 2025
She feels better
Needed Oxycodone earlier for pain
Objective Data
-
Labs:
Laboratory Results
02/23/25
07:01
WBC 8.6
Hgb 9.5 L
Hct 29.2 L
Plt Count 242
Sodium 135
Potassium 4.5
Chloride 106
Carbon Dioxide 29
BUN 13
Creatinine 0.7
Glucose 125 H
Calcium 8.7
Vital Signs:
Vital Signs
Temp Pulse Resp BP Pulse Ox
98.4 F 71 16 125/66 96
02/23/25 07:00 02/23/25 07:57 02/23/25 07:00 02/23/25 07:57 02/23/25 10:09
I&O
02/22/25 02/23/25 02/24/25
06:59 06:59 06:59
Intake Total 1440 / 1440 1280 / 1280 210 / 210
Output Total 2069 / 2069 2325 / 2325 335 / 335
Balance -630 / -630 -1045 / -1045 -125 / -125
[2025-02-23 11:51] LABS: Glucose - Point of Care 260 mg/dl (70-99)
[2025-02-23] MEDS: NOVOLOG FLEXPEN-MODERATE RESISTANCE 5 UNITS SC (12:27)
--- NOTE | 2025-02-23 13:08 | CM ---
Addendum entered by Lyubov Gilliam 02/23/25 16:11:
[facility] is anticipating patient coming tomorrow, pending physician assessment. Liaison aware.
Original Note:
Patient seen on at bedside. Patient requesting SNF referral to [facility]. CM sent referral and await confirmation of bed availability. CM will continue to follow for discharge planning needs.
Plan; referral sent to [facility] and confirm ability to accept
[2025-02-23 15:20] VITALS: BP 126/52
[2025-02-23 17:04] LABS: Glucose - Point of Care 117 mg/dl (70-99)
[2025-02-23 21:33] LABS: Glucose - Point of Care 254 mg/dl (70-99)
[2025-02-23] MEDS: LIPITOR 40 MG PO (22:47)
[2025-02-23 23:15] VITALS: BP 126/64
[2025-02-24] MEDS: TYLENOL 650 MG PO ×5 (00:48→15:36)
[2025-02-24] MEDS: ROXICODONE 5 MG PO ×2 (02:57→12:46)
[2025-02-24 05:30] VITALS: BMI 28.5
[2025-02-24] MEDS: SYNTHROID 25 MCG PO (05:51)
[2025-02-24 07:00] VITALS: BP 135/71
[2025-02-24 07:06] LABS: Hematocrit 29.5 % (37.0-47.0); Hemoglobin 9.3 g/dL (12.0-16.0); Mean Corp Hgb Conc. 31.5 g/dL (33.0-37.0); Mean Corpuscular Volume 84.5 fL (81.0-99.0); Platelet Count 262 10^3/uL (130-400); Red Cell Dist. Width 17.2 % (11.5-14.5)
[2025-02-24 07:19] LABS: Blood Urea Nitrogen 15 mg/dl (7-17); Calcium 8.6 mg/dl (8.4-10.2); Carbon Dioxide 30 mmol/L (22-30); Chloride 104 mmol/L (98-107); Estimated Creatinine Clearance 56 ml/min; Glucose 112 mg/dl (70-99); Potassium 4.3 mmol/L (3.5-5.1); Sodium 136 mmol/L (135-145); eGFR > 60.00
[2025-02-24 07:46] VITALS: BP 135/71
[2025-02-24 07:59] LABS: Glucose - Point of Care 115 mg/dl (70-99)
[2025-02-24] MEDS: NOVOLOG FLEXPEN-MODERATE RESISTANCE SC ×2 (08:38→12:49)
[2025-02-24] MEDS: XANAX 0.5 MG PO ×2 (08:39→12:47)
[2025-02-24] MEDS: ELIQUIS 5 MG PO (08:45)
[2025-02-24] MEDS: NON-FORMULARY ITEM 5 MG PO (08:46)
[2025-02-24] MEDS: ZETIA 10 MG PO (08:46)
[2025-02-24] MEDS: B COMPLEX w/VITAMIN C 1 CAPLET PO (08:46)
[2025-02-24] MEDS: COREG 3.125 MG PO (08:46)
[2025-02-24] MEDS: POLYTRIM OPHTHALMIC SOLUTION 2 DROP LEFT EYE ×2 (08:47→12:47)
[2025-02-24] MEDS: LASIX 20 MG PO (08:48)
--- NOTE | 2025-02-24 08:57 | W.PN.URO.CBU ---
Today's Communication / Plan
-
Stable for discharge to rehab
Assessment / Plan
-
74F with bladder cancer and colon cancer
02/18/25: s/p radical cystectomy, pelvic exenteration, R hemicolectomy, ileal conduit urinary diversion
POD #6
Urostomy with improved appearance this week
Encourage progressive ambulation
PT/OT
Wound/ostomy nurse care and teaching
Case management for rehab placement
HGB stable
Okay to continue Eliquis
Mild hematuria expected off and on while stents in place
Bowel recovery:
- Regular diet, colorectal signed off
Drains:
- Ureteral stents to remain in place x7-10 days post op
- Urostomy bag to gravity
- АЛЕКСАНДР drain to bulb suction - decreasing output x2 days. АЛЕКСАНДР creatinine negative for urine leak
- Drain to be removed at post op visit
Surgical jay to be removed at post op visit
Pain control:
- PO analgesics
- Pain well controlled
Stable for discharge to rehab from standpoint
Diagnosis
-
Date of Service: February 24, 2025
-
Patient Diagnosis:
Bladder cancer
Colon cancer
02/18/25: s/p radical cystectomy, pelvic exenteration, R hemicolectomy, ileal conduit urinary diversion
Subjective
-
Tolerating diet
pain improved
Ambulating with PT
No N/V
Normal bowel function
Objective
-
Vital Signs
Temp Pulse Resp BP Pulse Ox
98.1 F 81 16 135/71 96
02/24/25 07:00 02/24/25 07:00 02/24/25 07:00 02/24/25 07:00 02/24/25 07:00
Intake and Output
02/23/25 02/24/25 02/25/25
06:59 06:59 06:59
Intake Total 1280 / 1280 210 / 210 480 / 480
Output Total 2325 / 2325 1950 / 2230 315 / 315
Balance -1045 / -1045 -1740 / -2020 165 / 165
Intake:
Oral fluids 1220 / 1220 210 / 210 480 / 480
IV fluids (Total) 60 / 60
Lr 1,000 ml @ 30 mls/hr IV . 60
Q24H ALVARADO Rx#:[id number]
Output:
Drain Output (Total) 300 / 300 450 / 530 115 / 115
Left Abdomen Cory-Barraza 300 / 300 450 / 530 115 / 115
Urine, Voided 1250 / 1250
Urostomy output 775 / 775 1500 / 1700 200 / 200
Laboratory Results
02/24/25 06:05
02/24/25 06:05
Physical Exam
-
General - well developed, well nourished, no acute distress
Chest - clear
Abdomen - soft, non-tender
АЛЕКСАНДР in place, serous
Ostomy computer network engineer in color with improved perfusion
Mild hematuria
Skin - warm & dry with no rash
Neuro - AOx3, no motor deficits
Extremities - no clubbing, no cyanosis, no edema
Incision - clean, dry
Dressing - clean, dry, intact
--- NOTE | 2025-02-24 09:50 | W.PN.HOSP.TC ---
Today's Communication/Plan
-
dc if SNF is set up
Assessment / Plan
Assessment / Plan
Physical exam:
General: not in distress, feeling comfortable
HEENT: Normocephalic, Atraumatic and Moist Mucous Membranes, left eye redness and no discharge.
Respiratory: Clear to Auscultation; Negative Wheezes, Rales or Rhonchi
Cardiac: Regular Rhythm and S1/S2
GI: Soft, Nontender and Nondistended. Postop urostomy in place
Musculoskeletal: No Clubbing, No Cyanosis and No Edema
Neuro: Awake, Alert and Oriented, no neurological deficit
Psych: Calm
A/P:
Adenocarcinoma and urothelial cancer:
Status post exp laparotomy, adhesions lysis, right hemicolectomy, hysterectomy, radical cystectomy, pelvic exenteration, pelvic lymph node dissection, ileal conduit urinary diversion.
Colorectal surgery and urology following
dc pump and now on PRN medications.
d/w urology, ostomy teaching, ok to dc.
Colorectal surgery advanced to regular diet
Hypotension/ hemorrhagic shock exacerbated by opioid use : Resolved.
Acute blood loss anemia:
Yes, Acute GI Bleed is enhanced by/contributed to/associated with/due to Eliquis.
Blood transfusion as needed
s/p 5 units RBCs
Chronic HFrEF:
Monitor volume status closely
Monitor daily weights and ins and outs
Resuming oral diuretics
Continue GDMT
Paroxysmal A-fib:
Continue rate control
Anticoagulation is ok per urology, back on Eliquis with stable HGB
Diabetes mellitus type 2:
Monitor sugars closely
Insulin sliding scale
Hyponatremia
Left eye redness:
Less likely infection and rather dryness
Continue eyedrop
Hypertension:
ok to resume antihypertensives
Hyperlipidemia:
Continue home statin and ezetimibe
Hypothyroidism:
Continue thyroid replacement
Anxiety:
Continue Xanax scheduled doses
DVT prophylaxis:
Lovenox SQ
CODE STATUS:
Full code
Total time spent to see the patient, examine the patient, review data and lab results, discuss treatment plan with patient, nursing staff around 55 minutes�
Anticipated Discharge: Within 24 hours
Subjective/Interval History
-
Date of Service: February 24, 2025
No significant pain
She wants to stay in hospital
Objective Data
-
Labs:
Laboratory Results
02/24/25
06:05
WBC 7.6
Hgb 9.3 L
Hct 29.5 L
Plt Count 262
Sodium 136
Potassium 4.3
Chloride 104
Carbon Dioxide 30
BUN 15
Creatinine 0.7
Glucose 112 H
Calcium 8.6
Vital Signs:
Vital Signs
Temp Pulse Resp BP Pulse Ox
98.1 F 81 16 135/71 96
02/24/25 07:00 02/24/25 07:00 02/24/25 07:00 02/24/25 07:00 02/24/25 07:00
I&O
02/23/25 02/24/25 02/25/25
06:59 06:59 06:59
Intake Total 1280 / 1280 210 / 210 480 / 480
Output Total 2325 / 2325 1950 / 2230 355 / 355
Balance -1045 / -1045 -1739 / 125 / 125
--- NOTE | 2025-02-24 11:45 | WOUNDNOTE ---
[facility] RN note: Patient sitting in chair. Sacral skin intact. Patient stood during sacral skin assessment. Skin on heels intact. RUQ stoma dark pink with some clotted blood. Stents intact. Urine dark villeda red tinged. Peristomal skin intact.
Reinstructed patient how to empty pouch and change pouch. Used a 2 piece soft convex appliance (Dr. Marie requested a 2 piece today for planned stent removal on outpatient appointment on Saturday). Isabel wafer # [id number] with an Reba seal and
Isabel pouch # [id number]. Patient instructed 1 piece Isabel soft convex applianced recommended d/t she has trouble snapping on a pouch ([place] pouch # [id number]). More ostomy supplies left in room. Updated Dr. Marie via tiger text including stoma
picture, noting dark villeda colored urine, soft convex applied applied and if leakage becomes a problem, an ostomy belt may be needed. Isabel ostomy belt #[id number] given. Patient's friend present at end of visit. Encouraged patient to practise
emptying pouch and changing appliance with nursing staff.
[2025-02-24 12:04] LABS: Glucose - Point of Care 138 mg/dl (70-99)
[2025-02-24 12:52] VITALS: BP 137/67
--- NOTE | 2025-02-24 13:26 | CM ---
CM following re: discharge planning.
Reviewed pt's chart, met with pt and pt's friend at bedside.
Discharge order noted. Pt is aware, expressed her agreement and pt stated she is going to [facility] for a short term rehab only.
IMM reviewed, placed on chart, pt has a copy.
CM spoke to [facility] liaison and she confirmed that pt is accepted for admission today.
[facility] to arrange ambulance transport BLS. PMNC completed and left with [facility].
[facility] nursing report: [phone]
Discharge instructions fax: [phone]
D/C plan: [facility]
[2025-02-24 15:00] VITALS: BP 127/77
--- NOTE | 2025-02-24 15:11 | WOUNDNOTE ---
[facility] RN note: t/c [facility] Spoke with nurse Anshul and gave urostomy change report (2 piece applied today per urologist request for Saturday's appointment for stent removal) and gave ostomy appliance order number recommended (Isabel pouch # [id number] with
Reba seal) after Saturday's appointment and change 2 times a week and as needed.
[2025-02-24 16:45] LABS: Glucose - Point of Care 146 mg/dl (70-99)
--- NOTE | 2025-02-24 19:21 | PTCARENOTE ---
Discharge order in place. Report called to Yolanda at [facility]. Pt transported by stretcher. Prescriptions for Xanax and Roxicodone sent with patient.
--- NOTE | 2025-02-25 07:40 | W.DCSUMMARY ---
Discharge Summary
Discharge Data
Date of Admission: 02/18/25
Date of Discharge: 02/24/25
-
Pending Results: No
Hospital Course
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 On staging CAT scans, she was also found to have bladder cancer, confirmed by cystoscopy done by Dr. Marie.
After multidisciplinary discussion of the dose to our tumor board, recommendation was to proceed with surgery for both colon cancer and bladder cancer. Patient underwent exploratory laparotomy, lysis of adhesions, right hemicolectomy, cystectomy
with urethrectomy, bilateral pelvic lymph node dissection with creation of an ileal conduit, pelvic exenteration including hysterectomy, bilateral salpingo-oophorectomy, and resection of anterior vaginal wall by Drs. Donny Todd, Onel Marie,
Navin Weinberg on 02/18/25. She was admitted to intensive care unit postprocedure. Patient was followed closely by surgery and urology. She had acute on chronic blood loss anemia was given blood transfusion. She had medications for
pain control including opioid. She subsequently started to feel better and oral diet was resumed. Hemoglobin stabilized and she was placed back on Eliquis with stable hemoglobin checks. Patient was transferred out of ICU. Physical therapy was
consulted. Recommendation to go to correction facility. Patient was evaluated by wound care nurse for ostomy care. Patient was evaluated by case management. Patient was discharged to correction facility in a stable condition. Patient
requested to be given prescription of oxycodone to be used for pain control as needed.
Discharge Plan
-
Patient Disposition: Detention/SNF
Discharge Diagnosis/Procedures: s/p radical cystectomy, pelvic exenteration, R hemicolectomy, ileal conduit urinary diversion
c/w Wound/ostomy nurse care
Acute blood loss anemia, continue with iron therapy
Chronic heart failure with reduced ejection fraction
Paroxysmal atrial fibrillation
Diabetes
Hyponatremia
Hypertension
Anxiety disorder
Hypothyroidism
Diet: As tolerated and Diabetic, Carb Controlled
Blood Work: CBC & BMP in 5 days
Activity Restrictions/Additional Instructions:
Patient should follow up with Dr. Marie in the Urology office on Thursday 03/01 at 1PM
[address]
[place], [address]
[phone] if any questions about the appointment
Keep АЛЕКСАНДР drain bulb to suction and empty as needed
This will be removed at the follow up appointment on Saturday
Urostomy supplier: Oral 1 piece pouch # [id number] with Reba seal. Change 2 times a week and as needed for leakage. If leakage becomes a problem, try adding Oral ostomy belt #[id number].
Connect pouch to overnight drainage bag; rinse overnight drainage bag daily with water and weekly with 1 part white vinegar and 2 parts water. Replace overnight drainage bag monthly.
Follow up with urologist.
Call supply [employer] (list in folder provided) for monthly Ostomy supplies after discharge (ask [facility]N to order supplies while on service).
Follow up with surgeon.
Call [facility] RN nurse for ostomy pouching concerns or leakage problems [phone] or [phone] or [phone].
Referrals:
Mina Quintana MD [Family Provider, Family Practice]
Donny Todd MD [Active, ColoRectal] - in one to two weeks
Prescriptions:
New
oxycodone 5 mg Tablet
5 mg PO Q6HPRN PRN (Reason: moderate to severe pain) Qty: 10 0RF
ferrous sulfate 325 mg (65 mg iron) tablet
325 mg PO DAILY Qty: 30 0RF
bisacodyl [Dulcolax (bisacodyl)] 5 mg tablet,delayed release (DR/EC)
10 mg PO HSPRN PRN (Reason: Constipation) Qty: 10 0RF
Continued
carvedilol 3.125 MG tablet
3.125 mg PO BID Qty: 60 3RF
furosemide 20 MG tablet
20 mg PO SUWE@0800
lisinopril 2.5 MG tablet
2.5 mg PO DAILY
atorvastatin 40 mg Tablet
40 mg PO HS
Eliquis 5 mg Tablet
5 mg PO BID
thiamine HCl (vitamin B1) [Vitamin B-1] 100 mg Tablet
100 mg PO DAILY
Saccharomyces boulardii [Probiotic (S.boulardii)] 250 mg Capsule
250 mg PO DAILY
vitamin B complex Capsule
1 cap PO DAILY
ezetimibe 10 mg Tablet
10 mg PO DAILY
ivabradine 5 mg Tablet
5 mg PO BID
alprazolam 0.5 mg Tablet
0.5 mg PO QID Qty: 10 0RF
multivitamin Tablet
1 tab PO DAILY
polyvinyl alcohol [Artificial Tears (polyvin alc)] 1.4 % Drops
1 drp OPHTHALMIC (EYE) BID
dextrose [Glucose Gel] 40 % Gel
1 ea PO PRN PRN (Reason: BG <60)
levothyroxine [Synthroid] 25 mcg Tablet
25 mcg PO DAILY
magnesium hydroxide [Milk of Magnesia] 400 mg/5 mL Suspension
30 ml PO PRN PRN (Reason: No BM x 3 days)
bisacodyl [Dulcolax (bisacodyl)] 10 mg Suppository
10 mg [place] DAILYPRN PRN (Reason: If MOM is ineffective)
metformin 1,000 mg Tablet
1,000 mg PO BID
melatonin 5 mg Tablet
5 mg PO HS PRN (Reason: Insomnia)
Gvoke HypoPen 1-Pack 1 mg/0.2 mL Auto-Injector
1 mg SC ONCE PRN (Reason: hypoglycemia)
Fleet Enema 19-7 gram/118 mL Enema
118 ml [place] DAILYPRN PRN (Reason: if dulcolax ineffective)
Changed
acetaminophen 325 mg Tablet
650 mg PO TID MDD 3000 MG Qty: 0 0RF
Discontinued
metronidazole 500 mg Tablet
500 mg PO PRE PROCEDURE
alprazolam [Xanax] 0.5 mg Tablet
0.5 mg PO ONCE
neomycin 500 mg Tablet
1 g PO PRE PROCEDURE
Discharge Orders:
Discharge Patient (As Directed); Ordered 02/24/25
Ordered By: Percy Downs
Discharge Date and Time
Discharge Date/Time: 02/24/25 17:26
Print Language: TRINIDADIAN
== END 2025-02-24 17:26 | DRG 653 ==
LOC: 2 SOUTH 05:48
PROVIDERS: Nurse Practitioner Family; Urology; ADMITTING PHYSICIAN Surgery; ATTENDING PHYSICIAN Internal Medicine; CONSULT PHYSICIAN Internal Medicine; FAMILY PHYSICIAN Family Medicine
PROC: 0DNU0ZZ Release Omentum, Open Approach (ICD-10-PCS; 2025-02-18)
PROC: 0UT90ZZ Resection of Uterus, Open Approach (ICD-10-PCS; 2025-02-18)
PROC: 0UT70ZZ Resection of Bilateral Fallopian Tubes, Open Approach (ICD-10-PCS; 2025-02-18)
PROC: 0T180ZC Bypass Bilateral Ureters to Ileocutaneous, Open Approach (ICD-10-PCS; 2025-02-18)
PROC: 30233N1 Transfusion of Nonautologous Red Blood Cells into Peripheral Vein, Percutaneous Approach (ICD-10-PCS; 2025-02-18)
PROC: 0DTF0ZZ Resection of Right Large Intestine, Open Approach (ICD-10-PCS; 2025-02-18)
PROC: 0TTB0ZZ Resection of Bladder, Open Approach (ICD-10-PCS; 2025-02-18)
PROC: 0UT20ZZ Resection of Bilateral Ovaries, Open Approach (ICD-10-PCS; 2025-02-18)
PROC: 0TTD0ZZ Resection of Urethra, Open Approach (ICD-10-PCS; 2025-02-18)
PROC: 07BC0ZZ Excision of Pelvis Lymphatic, Open Approach (ICD-10-PCS; 2025-02-18)
DX: C67.9 Malignant neoplasm of bladder, unspecified (principal); T81.19XA Other postprocedural shock, initial encounter; C18.9 Malignant neoplasm of colon, unspecified; D62 Acute posthemorrhagic anemia; I50.22 Chronic systolic (congestive) heart failure; E87.1 Hypo-osmolality and hyponatremia; I42.8 Other cardiomyopathies; I44.2 Atrioventricular block, complete; D50.9 Iron deficiency anemia, unspecified; D51.9 Vitamin B12 deficiency anemia, unspecified; E03.9 Hypothyroidism, unspecified; E11.9 Type 2 diabetes mellitus without complications; I11.0 Hypertensive heart disease with heart failure; I48.0 Paroxysmal atrial fibrillation; F41.9 Anxiety disorder, unspecified; Z95.2 Presence of prosthetic heart valve; Z95.0 Presence of cardiac pacemaker; Z87.891 Personal history of nicotine dependence; I25.10 Atherosclerotic heart disease of native coronary artery without angina pectoris; Z88.2 Allergy status to sulfonamides; Z88.5 Allergy status to narcotic agent; Z79.899 Other long term (current) drug therapy; Z79.890 Hormone replacement therapy; Z79.84 Long term (current) use of oral hypoglycemic drugs; Z79.01 Long term (current) use of anticoagulants; N73.6 Female pelvic peritoneal adhesions (postinfective); Y83.8 Other surgical procedures as the cause of abnormal reaction of the patient, or of later complication, without mention of misadventure at the time of the procedure
CPT/HCPCS: 36415; 71046; 74018; 80048; 80053; 82040; 82570; 82962; 83036; 83605; 83735; 84100; 85014; 85018; 85025; 85027; 85045; 85610; 85730; 86850; 86900; 86901; 86920; 88305; 88307; 88309; 88331; 93005; 97116; 97163; 97167; 97535; J1335; P9016; P9045; P9047